=== PATIENT | female | born 1980 | race Caucasian/White ===

== ENCOUNTER → 2017-10-01 14:00 | Outpatient (CLI) | payer OTHER, SELFPAY ==
--- NOTE | 2017-10-01 14:03 | BI_ITS ---
MAMMOGRAPHY - BILATERAL SCREENING REASON FOR EXAM: Female, 37 years old. Routine annual screening examination. PERTINENT HISTORY: Mother with breast cancer. Grandmother with breast cancer. TECHNIQUE: Digital bilateral breast eros (3D mammographic acquisition) in the CC and MLO projections. 2-D mediolateral oblique (MLO) and craniocaudad (CC) views of both breasts were obtained. CAD: Full Field Digital Mammography with Computer Added Detection was performed. COMPARISON: Comparison is made with prior outside examination dated September 02, 2013. FINDINGS: Breast Composition: The breasts are heterogeneously dense, which may obscure small masses. There are no dominant masses or suspicious calcifications. No other significant abnormalities are identified. There has been no significant change since the prior study. BI/SCREENING MAMM (CAD), BILAT IMPRESSION: Stable bilateral screening mammogram. Yearly follow-up mammogram recommended. (A) ASSESSMENT CATEGORY: BIRADS Category 1: Negative. A letter regarding these results will be sent to the patient by the facility within 30 days. Approximately 10% of breast cancers are not detected by mammography. A normal mammogram should not delay biopsy of a clinically suspicious abnormality. [id number] Electronically Signed: Kan Lawrence MD at 15:41 EDT Tel [phone], Service support ,
== END ==
PROVIDERS: Family Provider Family Medicine; PCP Family Medicine; Visit Provider Obstetrics & Gynecology
DX: Z12.31 Encounter for screening mammogram for malignant neoplasm of breast (principal); Z80.3 Family history of malignant neoplasm of breast
CPT/HCPCS: 77063; 77067

== ENCOUNTER → 2018-01-13 15:52 | Outpatient (CLI) | payer OTHER, SELFPAY | PROVIDERS: Visit Provider Nurse Practitioner Women's Health | DX: N76.0 Acute vaginitis (principal) | CPT/HCPCS: 87070; 87205 ==

== ENCOUNTER → 2018-01-22 14:34 | Outpatient (CLI) | payer OTHER, SELFPAY | PROVIDERS: Visit Provider Dermatology | DX: L72.0 Epidermal cyst (principal) | CPT/HCPCS: 87070; 87186; 87205 ==

== ENCOUNTER → 2018-03-25 14:32 | Outpatient (CLI) | payer OTHER, SELFPAY | PROVIDERS: Referring Provider Nurse Practitioner Women's Health; Visit Provider Nurse Practitioner Women's Health | DX: N89.8 Other specified noninflammatory disorders of vagina (principal) | CPT/HCPCS: 87070; 87205 ==

== ENCOUNTER → 2018-04-13 18:04 | Outpatient (CLI) | payer OTHER, SELFPAY | PROVIDERS: Referring Provider Nurse Practitioner Women's Health; Visit Provider Nurse Practitioner Women's Health | DX: N76.0 Acute vaginitis (principal) | CPT/HCPCS: 87070; 87205 ==

== ENCOUNTER → 2018-08-03 15:58 | Outpatient (CLI) | payer OTHER, SELFPAY ==
[2018-08-03 10:41] VITALS: BMI 30.2
== END ==
PROVIDERS: Referring Provider Nurse Practitioner Women's Health; Visit Provider Nurse Practitioner Women's Health
DX: N89.8 Other specified noninflammatory disorders of vagina (principal)
CPT/HCPCS: 87070; 87205

== ENCOUNTER → 2018-09-02 15:33 | Outpatient (CLI) | payer OTHER, SELFPAY ==
[2018-08-03 10:41] VITALS: BMI 30.2
== END ==
PROVIDERS: Referring Provider Otolaryngology Otolaryngology/Facial Plastic Surgery; Visit Provider Otolaryngology Otolaryngology/Facial Plastic Surgery
DX: J03.90 Acute tonsillitis, unspecified (principal)
CPT/HCPCS: 87070

== ENCOUNTER → 2018-10-26 15:22 | Outpatient (CLI) | payer OTHER, SELFPAY ==
[2018-10-26 14:11] VITALS: BMI 30.2
== END ==
PROVIDERS: Referring Provider Nurse Practitioner Women's Health; Visit Provider Nurse Practitioner Women's Health
DX: N89.8 Other specified noninflammatory disorders of vagina (principal)
CPT/HCPCS: 87070; 87205

== ENCOUNTER → 2018-12-09 15:42 | Outpatient (CLI) | payer OTHER, SELFPAY ==
[2018-10-26 14:11] VITALS: BMI 30.2
== END ==
PROVIDERS: Referring Provider Otolaryngology Otolaryngology/Facial Plastic Surgery; Visit Provider Otolaryngology Otolaryngology/Facial Plastic Surgery
DX: J32.9 Chronic sinusitis, unspecified (principal)
CPT/HCPCS: 87070; 87077; 87106; 87205

== ENCOUNTER → 2019-04-19 15:13 | Outpatient (CLI) | payer OTHER, SELFPAY ==
[2019-04-12 09:39] VITALS: BMI 30.2
== END ==
PROVIDERS: Family Provider Family Medicine; PCP Family Medicine; Referring Provider Otolaryngology Otolaryngology/Facial Plastic Surgery; Visit Provider Otolaryngology Otolaryngology/Facial Plastic Surgery
DX: J32.9 Chronic sinusitis, unspecified (principal)
CPT/HCPCS: 87070; 87205

== ENCOUNTER → 2019-05-12 16:16 | Outpatient (CLI) | payer OTHER, SELFPAY ==
[2019-04-12 09:39] VITALS: BMI 30.2
--- NOTE | 2019-05-12 16:19 | CT_ITS ---
STUDY: CT BRAIN AND SINUSES WITHOUT CONTRAST REASON FOR EXAM: Female, 38 years old. Sinusitis. RADIATION DOSAGE (If Supplied By Facility): CTDIvol = ( 33.45 ) mGy, DLP = ( 445.17 ) mGycm TECHNIQUE: Transaxial CT imaging of the brain was performed without administration of contrast. Individualized dose optimization techniques were used for this CT. COMPARISON: No relevant priors. FINDINGS: CT BRAIN Normal visualized soft tissue structures. Normal visualized calvarium. Note is made that only the middle, anterior and bases of the brain is included in the [id number]. Normal size of the visualized ventricles and extra-axial spaces for the patient's age. Normal white matter tracts of the cerebral hemispheres. Normal visualized basal ganglia and thalami. Normal brainstem. Normal cerebellum. There is no intracranial hemorrhage. There are no findings of an acute ischemic infarction. CT SINUSES Post Surgical Changes: None. Frontal Sinus and Recess: Normal aeration without mucosal inflammatory disease. Ethmoidal Sinuses: Normal aeration without mucosal inflammatory disease. Maxillary Sinuses: Normal aeration without mucosal inflammatory disease. Ostiomeatal Complex: Clear. Sphenoid Sinus: Normal aeration without mucosal inflammatory disease. Sphenoethmoidal Recess: Clear. Nasal Turbinate (Right): Middle Turbinate (Right): Normal. Middle Turbinate (Left): Normal. Inferior Turbinate (Right): Normal. Inferior Turbinate (Left): Normal. Nasal Septum: Midline. Nasal Airway: Clear. Cribiform Plate / Anterior Cranial Fossa: Normal. Orbits: Normal. CT/Sinus/Facial Bone IMPRESSION: Unremarkable enhanced CT scan of the visualized brain and sinuses. Electronically Signed: Priscilla Potter MD at 2:39 EST , Service support ,
== END ==
PROVIDERS: Family Provider Family Medicine; PCP Family Medicine; Referring Provider Otolaryngology Otolaryngology/Facial Plastic Surgery; Visit Provider Otolaryngology Otolaryngology/Facial Plastic Surgery
DX: J32.9 Chronic sinusitis, unspecified (principal)
CPT/HCPCS: 70486

== ENCOUNTER 2019-07-17 23:20 | Emergency (ER) | payer OTHER, SELFPAY ==
[2019-04-12 09:39] VITALS: BMI 30.2
[2019-07-17 23:21] VITALS: BP 126/83; PULSE 68; RESP 14; TEMP 36.7; O2SAT 100; BMI 29.2
--- NOTE | 2019-07-17 23:57 | CT_ITS ---
STUDY: CT ABDOMEN AND PELVIS WITHOUT CONTRAST REASON FOR EXAM: Female, 39 years old. RT SIDED ABDOMEN PAIN AND PAINFUL URINATION -- HX:SKIN CANCER,APPENDECTOMY,C-SECTIONS,HYSTERECTOMY-HAS OVARIES RADIATION DOSAGE (If Supplied By Facility): CTDIvol = ( 8.14 ) mGy, DLP = ( 408.75 ) mGycm TECHNIQUE: Transaxial images were obtained from the dome of the diaphragm to the symphysis pubis without oral contrast, and without intravenous contrast. Sagittal and coronal images were reconstructed. Individualized dose optimization techniques were used for this CT. COMPARISON: None. FINDINGS: There is minimal amount of peritoneal fat which makes distinction of structures difficult. The visualized lung bases are unremarkable. The visualized portions of the heart are within normal limits. Normal liver. Normal gallbladder and extrahepatic biliary system. Normal spleen. Normal pancreas. Normal bilateral adrenal glands. Normal right kidney. Normal left kidney. Normal visualized stomach. Normal small intestine. There is abundant fecal debris within the colon which may indicate mild constipation the appropriate clinical context. There is some redundant colon with extension of the cecum along the anterior-inferior aspect of the pelvis. Distinct appendix is not visualized. Normal abdominal aorta. Normal inferior vena cava. Normal retroperitoneum. Urinary bladder is decompressed otherwise unremarkable. The uterus is not well-visualized with the masslike structure seen within the posterior aspect of the pelvis measuring 4.4 x 5.0 cm in axial dimension by 4.8 cm in craniocaudal dimension. Possible free fluid along the bilateral pelvis and cul-de-sac. Normal abdominal wall. Normal osseous structures. CT/Abdomen/Pelvis without Cont IMPRESSION: Posterior pelvic masslike structure with suboptimal visualization of the uterus and difficult to adequately characterize. Further follow-up with ultrasound of the pelvis recommended. Increased fecal debris which may indicate constipation. Electronically Signed: Priscilla Potter MD at 0:57 EST , Service support ,
[2019-07-18 00:05] LABS: Absolute Lymphocyte Count 0.99 X10^3/uL (0.83-4.51); Absolute Neutrophil Count 8.4 X10^3/uL (2.0-7.7); Basophil# 0.03 X10^3/uL; Basophil% 0.3 % (0-1); Eosinophil# 0.01 X10^3/uL; Eosinophils% 0.1 % (0-5); Hematocrit 38.8 % (37-47); Hemoglobin 12.8 g/dL (12.0-15.0); Lymphocyte # 0.99 X10^3/ul (4.0); Mean Corpuscular Hgb 30.1 pg (27.0-32.0); Mean Corpuscular Volume 91.3 fL (81-99); Mean Platelet Vol. 9.7 fl (6.2-12.0); Monocyte# 0.39 X10^3/uL; Monocyte% 3.9 % (0-10); NRBC Flagged by Analyzer 0 % (0-5); Neutrophil # 8.43 X10^3/uL (2.7-7.7); Neutrophil % 85.3 % (47-70); Platelet Count 200 K/mm3 (150-450); RBC Distribution Width CV 12.1 % (11.6-14.6); RBC Distribution Width SD 40.3 fl (35.1-43.9); Red Blood Count 4.25 M/mm3 (4.2-5.4); White Blood Count 9.9 K/mm3 (4.4-11.0)
[2019-07-18] MEDS: Ondansetron 4 MG/2 ML Vial IV (00:11)
[2019-07-18] MEDS: Ketorolac 30 MG/ML Syringe IV (00:11)
--- NOTE | 2019-07-18 00:17 | ED.VIS.GI ---
History of Present Illness Chief Complaint: Abd Pain Informant: Patient - Abdominal Pain/Flank Pain Onset: Today - Several hours prior to arrival Context: Sudden Onset - While at rest, doing nothing in particular Timing: Continuous, Waxes and wanes Quality: Aching Location: RLQ Current Severity: Severe Maximum Severity: Severe Worsened by: - - Lying on left side, and by urinating Relieved by: Nothing - Nausea/Vomiting/Emesis GI Symptom: Nausea, Vomiting Quality: Nonbilious. Negative for: Blood streaks, Coffee ground, Hematemesis - Diarrhea/Melena/Hematochezia GI Symptom: Negative for: Diarrhea, Melena, Hematochezia Associated Symptoms: Negative for: Dysuria, Frequency, Hematuria, Urgency Narrative: Pain started relatively suddenly. She has never had this before. She has had some pain in her right low back for several months, that is no different with this pain today, and there is no other or new back pain. She denies any fevers recently. 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 Has had hysterectomy. Recommended kidney MRI yearly. Derm appt q1-2 yr. Past Medical History - Allergies and Home Meds Allergies/Adverse Reactions: Allergies No Known Allergies Allergy (Verified 07/17/19 23:20) Primary Care Physician: Care Physician,No Primary [Primary Care Provider] - Surgical History: hysterectomy Lives: Spouse/ Significant Other Smoking Status: Former smoker Review of Systems General: Denies: Chills, Fever, Sweats Eyes: Denies: Visual changes - bilaterally, Diplopia ENT: Denies: Rhinorrhea, Sore throat Cardiovascular: Denies: Chest pain, Palpitations Respiratory: Denies: Dyspnea, Cough, Dyspnea on exertion Gastrointestinal: Reports: Abdominal pain, Nausea, Vomiting. Denies: Diarrhea, Melena, Hematochezia Genitourinary: Denies: Dysuria, Hematuria, Frequency Musculoskeletal: Reports: Back pain. Denies: Neck pain, Extremity Pain Skin: Denies: Rash, Wounds Neurological: Denies: Headache, Weakness, Numbness Physical Exam Vital Signs/Narrative: Vital Signs Temp Pulse Resp BP Pulse Ox 07/17/19 23:21 98.1 F 68 14 126/83 H 100 Inital Vital Signs reviewed: Yes General: Well nourished, Well developed, No Acute Distress Head: Normocephalic, Atraumatic Eyes: Perrl, EOMI ENT: Moist mucous membranes, No rhinorrhea Neck: Supple, Nontender Cardiovascular: Regular rate, Regular rhythm, No murmurs Respiratory: No distress, CTA bilaterally, Chest nontender Abdomen: Soft, Nondistended, Normal bowel sounds, Tender - Mild in right lower quadrant. Negative for: Guarding, Rebound tenderness, Pulsatile mass Back: Nontender, Normal Inspection. Negative for: CVA tenderness Extremities: Nontender, No edema Skin: Normal color, No rash, No Trauma Neurological: Alert, Oriented x3, Cranial nerves II-XII grossly intact, Normal Strength, Normal Sensation Psychological: Normal affect, Normal Mood Diagnostic/Tx/Re-eval Impressions Abdomen/Pelvis CT 07/17/19 23:57 IMPRESSION: Posterior pelvic masslike structure with suboptimal visualization of the uterus and difficult to adequately characterize. Further follow-up with ultrasound of the pelvis recommended. Increased fecal debris which may indicate constipation. Electronically Signed: Priscilla Potter MD at 0:57 EST , Service support , 07/17/19 23:57 Abdomen/Pelvis without Cont [CT] Stat Laboratory Results 07/17/19 07/17/19 07/18/19 23:49 23:49 00:15 WBC 9.9 RBC 4.25 Hgb 12.8 Hct 38.8 MCV 91.3 MCH 30.1 MCHC 33.0 RDW Std Deviation 40.3 RDW Coeff of Kim 12.1 Plt Count 200 MPV 9.7 Immature Gran % (Auto) 0.400 Neut % (Auto) 85.3 H Lymph % (Auto) 10.0 L Rich % (Auto) 3.9 Eos % (Auto) 0.1 Baso % (Auto) 0.3 Absolute Neuts (auto) 8.4 H Absolute Lymphs (auto) 0.99 Nucleated RBC % 0 Sodium 139 Potassium 3.9 Chloride 108 H Carbon Dioxide 24.0 Anion Gap 7 BUN 12 Creatinine 0.72 Estim Creat Clear Calc 87.64 Est GFR (MDRD) Af Amer 117 Est GFR (MDRD) Non-Af 97 BUN/Creatinine Ratio 16.7 Glucose 109 H Calcium 9.1 Urine Color Yellow Urine Clarity Sl. Cloudy Urine pH 6.5 Ur Specific [place] 1.015 Urine Protein Negative Urine Glucose (UA) Normal Urine Ketones 150 H Urine Occult Blood Negative Urine Nitrite Negative Urine Bilirubin Negative Urine Urobilinogen Normal Ur Leukocyte Esterase Negative Urine RBC 0 SEEN Urine WBC 0 SEEN Ur Squamous Epith Cells 0-5 SEEN Urine Bacteria RARE Urine Mucus 0 SEEN - Medical Decision Making Patient is feeling better after treatment. CT shows no stones and urine is normal, her other labs are normal as well but there is a masslike structure in her posterior pelvis on the CT. It is unknown if this is related to the pain she was having which is new. There is no sign of urinary plumbing obstruction or hydronephrosis. There is no significant leukocytosis or leftward shift to suggest that this is an infection. It is appreciated that we did not enhance this area with contrast, so visualization is suboptimal and that is likely why ultrasound of the pelvis is recommended. That is not available at this time, so since the patient is doing well and has no other reason medically to be admitted I think outpatient ultrasound close outpatient follow-up with her gyroscopic engineering technician is reasonable and she is agreeable to that. Given an Ultram prior to discharge and a prescription for that to use as needed. I am setting her up for an outpatient ultrasound. ED Disposition - Plan for ED Patient: Disposition: Home or Assisted Living Diagnosis: Pelvic mass, Right sided abdominal pain Instructions: PELVIC PAIN, Unknown Cause Prescriptions: traMADol [Ultram] 50 mg PO Q4H PRN PRN 3 Days #16 tab PRN Reason: Pain Prescription Printed Referrals: Maria M Perez MD [STAFF PHYSICIAN] - 3-5 Days (make an appt for after the ultrasound) Additional Instructions: Take your prescription to the ultrasound. Call the number given for scheduling.
[2019-07-18 00:21] LABS: Color, Urine Yellow (Yellow); Glucose, Dipstick Normal (Normal); Leukocyte Esterase-Dipstick Negative /ul (Negative); Mucous, Urine 0 SEEN /hpf (<or=2+); Nitrite-Dipstick Negative (Negative); Occult Blood-Urine Negative /ul (Negative); Protein-Dipstick Negative (Negative); Red Blood Cells-Urine 0 SEEN /hpf (0-5); Specific Gravity, Urine 1.015 (1.002-1.030); Urine Bilirubin Dipstick Negative (Negative); Urine Clarity Sl. Cloudy (Clear); Urine Urobilinogen Normal (Normal); Urine pH 6.5 (5.0 - 8.0); White Blood Cells 0 SEEN /hpf (0-5)
[2019-07-18 00:21] LABS: Anion Gap 7 (5-15); BUN 12 mg/dL (7-18); BUN/Creat Ratio 16.7 RATIO (10-20); Calcium,Total 9.1 mg/dL (8.5-10.1); Chloride 108 mmol/L (98-107); Creatinine, Serum 0.72 mg/dL (0.55-1.02); EST Glomerular Filtration Rate 97 mL/min (>60); Est Glom Filt Rate - Afr Amer 117 mL/min (>60); Estimated Creatinine Clearance 87.64 ml/min; Glucose 109 mg/dL (74-106); Potassium 3.9 mmol/L (3.5-5.1); Sodium Level 139 mmol/L (136-145)
[2019-07-18 00:28] LABS: Bacteria RARE /hpf (None Seen); Ketone-Dipstick 150 mg/dl (Negative); Squamous Epithelial Cells - UA 0-5 SEEN /hpf (5-10)
[2019-07-18] MEDS: traMADol 50 MG Tablet PO (02:24)
[2019-07-18 02:28] VITALS: PULSE 71; RESP 16; O2SAT 99
== END 2019-07-18 02:28 | disposition home or self-care (01) ==
PROVIDERS: Emergency Provider Emergency Medicine
DX: R19.00 Intra-abdominal and pelvic swelling, mass and lump, unspecified site (principal); R10.31 Right lower quadrant pain; M54.5 Low back pain; Z87.891 Personal history of nicotine dependence; Z90.710 Acquired absence of both cervix and uterus
CPT/HCPCS: 74176; 80048; 81001; 85025; 96374; 96375; 99284; A4216; J2405

== ENCOUNTER 2019-07-19 09:08 | Day surgery (SDC) | payer OTHER, SELFPAY ==
[2019-07-19] VITALS (11 sets, daily range): BP systolic 98–142; BP diastolic 60–77; PULSE 53–83; RESP 12–18; TEMP 36.1–36.7; O2SAT 93–100; BMI 29.2
--- NOTE | 2019-07-19 | OV_PTH ---
PATIENT: KYRA JO LOC: [facility] [place] U#:[id number] AGE/SX: 39/F ROOM: RE07/19/[address]: Dr. Maria M Perez MD : 1980 BED: DIS: 07/19/2019 SPEC #: [id number] RECD: 07/19/19 16:07 STATUS: CODY MIKI #: [id number] ERIN: 07/19/19 00:[address]: Maria M Perez DEPT: SURGICAL PATHOLOGY RECD BY: Bill Francis ENTERED: 07/20/19 08:51 SP TYPE: OVARY OTHR DR: Catina Primary Care Phys Tissues: Right ovary Procedures: Surgery Specimen Level V HEADER OPERATION: Laparoscopic treatment of right ovarian torsion, right oophorectomy PRE-OP DIAGNOSIS: Ovarian torsion TISSUE SUBMITTED: Right ovary MICROSCOPIC DIAGNOSIS Right ovary, oophorectomy: Thecoma/fibroma of ovary Hemorrhagic infarction. AM:ghanshyam 07/21/19 COMMENT Case has been reviewed in consultation with Dr. Garza who concurs with the above diagnosis. IDC:SJ MICROSCOPIC DESCRIPTION Slides are reviewed. GROSS DESCRIPTION Received in fixative is one container labeled with the patient's name and designated right ovary. The specimen consists of a portion of ovary in two pieces measuring in aggregate 10 x 6 x 4 cm. Multiple nodules are also noted measuring 9 x 7 x 4 cm. The entire specimen weighs 138 gm. A mishra, indurated nodule is noted at one edge of the specimen measuring 1.7 x 1.5 x 1 cm. Sections of the rest of ovarian tissue reveal hemorrhagic cut surfaces. Sections also reveal a mishra-white nodule measuring 1 cm in greatest dimension. Regulated Program Manager sections are submitted in four cassettes as follows: 1 - larger solid nodule, 2 - mishra-white nodule, 3 & 4 - lifeline representatives sections of ovarian tissue. / TRACEY:ghanshyam 07/20/19 TC:1 [facility]: [id number]
--- NOTE | 2019-07-19 09:17 | US_ITS ---
STUDY: ULTRASOUND OF THE FEMALE PELVIS - COMPLETE REASON FOR EXAM: Female, 39 years old. RLQ PAIN SINCE 07/17/19 LMP: The patient is status post hysterectomy. TECHNIQUE: Transvaginal TECHNICAL QUALITY: Adequate. COMPARISON: None. FINDINGS: The patient is status post hysterectomy. The right ovary is visualized. The right ovary is enlarged and measures 10.1 cm x 7.3 cm x 6.8 cm. 2 discrete complex masses are seen within the ovary. The larger measures 4.6 cm x 4.7 cm by 4.5 cm. The smaller measures 3.1 cm by 3.7 cm x 3.3 cm. There is decreased arterial and normal venous vascularity. Right ovarian torsion should be ruled out. The left ovary is visualized. The left ovary measures 3.5 cm x 2 cm x 2.5 cm. There is no left ovarian cyst or ovarian mass. There is no visualized left adnexal mass or complex lesion. There is normal arterial and normal venous vascularity. There is no fluid in the cul-de-sac. US/Transvaginal Non- IMPRESSION: 2 complex masses in the right ovary. There is evidence of decreased blood flow to the right ovary. Torsion of the right orbit should be ruled out. The referring physician was notified of the sonographic findings. Electronically Signed: Kan Lawrence, at 10:35 EST , Service support ,
--- NOTE | 2019-07-19 09:19 | ED.VIS.GEN ---
History of Present Illness Chief Complaint: Abd Pain Informant: Patient, Significant Other Onset: Days - Onset July 17 Context: Sudden Onset Timing: Continuous Quality: Pain Location: Right lower quadrant Current Severity: Moderate Maximum Severity: Severe Worsened by: Movement, walking Relieved by: Nothing Associated Symptoms: Nausea and anorexia Narrative: Patient is a 39-year-old woman seen on Friday and scheduled for outpatient ultrasound. She presents because of worsening pain. She reports nausea and has no appetite. Since Friday she has had 6 crackers. She was prescribed tramadol. She states the tramadol did not diminish the symptoms. She had a oxycodone from prior surgery, 1 year ago, that she took. She still complained of significant pain. She has a pressure sensation when she urinates. She had a CT of the abdomen on Friday which revealed a 4 cm pelvic mass. She is status post x2, hysterectomy and appendectomy. She states her right and left ovary were not removed. The hysterectomy was performed by Dr. 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 Has had hysterectomy. Recommended kidney MRI yearly. Derm appt q1-2 yr. Past Medical History - Allergies and Home Meds Allergies/Adverse Reactions: Allergies No Known Allergies Allergy (Verified 07/19/19 09:08) Primary Care Physician: Care Physician,No Primary [Primary Care Provider] - Prior records reviewed: Yes Surgical History: appendectomy, hysterectomy, - - x2 Lives: Spouse/ Significant Other, With Family Smoking Status: Former smoker Alcohol: Rare Drugs: None Review of Systems General: Reports: Fever, Malaise, Subjective. Denies: Chills, Sweats Eyes: Denies: Visual changes - bilaterally, Blurred Vision - bilaterally ENT: Denies: Rhinorrhea, Sore throat Cardiovascular: Denies: Chest pain, Palpitations Respiratory: Denies: Dyspnea, Cough, Dyspnea on exertion Gastrointestinal: Reports: Abdominal pain, Nausea, - - She also complains of anorexia.. Denies: Vomiting, Diarrhea, Constipation, Melena, Hematochezia, - Genitourinary: Reports: - - Ports pressure with urination. Denies: Dysuria, Hematuria, Frequency Musculoskeletal: Denies: Myalgias, Arthralgias, Neck pain, Back pain, Swelling, Extremity Pain, -, - Skin: Denies: Rash, Wounds Neurological: Denies: Headache, Weakness, Numbness Hematologic: Denies: Easy bruising, Easy bleeding Physical Exam Vital Signs/Narrative: Vital Signs Temp Pulse Resp BP Pulse Ox 07/19/19 09:09 97.0 F L 83 16 142/77 H 100 Inital Vital Signs reviewed: Yes General: Well nourished, Well developed, Acute Distress, - - Peers uncomfortable and pale. Head: Normocephalic, Atraumatic Eyes: Perrl, EOMI, Pale conjunctiva - Possible pallor on the conjunctivo-. Negative for: Scleral icterus ENT: No rhinorrhea. Negative for: Nasal congestion Neck: Supple, Nontender, No lymphadenopathy, No JVD Cardiovascular: Regular rate, Regular rhythm, No murmurs, Normal S1, Normal S2 Respiratory: No distress, CTA bilaterally, Chest nontender Abdomen: Soft, Nondistended, No masses, Tender, Guarding, Rebound tenderness, Hypoactive bowel sounds. Negative for: Mass, Pulsatile mass, Ventral hernia, Inguinal hernia, Umbilical hernia Back: Nontender, Normal Inspection Extremities: Nontender, No edema Skin: No rash, Pallor Neurological: Alert, Oriented x3, Cranial nerves II-XII grossly intact, Normal Strength, Normal Sensation Psychological: Normal affect, Normal Mood Diagnostic/Tx/Re-eval 07/19/19 09:17 Transvaginal Non- [US] Stat Laboratory Results 07/19/19 09:30 WBC 7.3 RBC 3.76 L Hgb 11.4 L Hct 34.6 L MCV 92.0 MCH 30.3 MCHC 32.9 RDW Std Deviation 41.0 RDW Coeff of Kim 12.2 Plt Count 161 MPV 9.8 Immature Gran % (Auto) 0.500 Neut % (Auto) 78.5 H Lymph % (Auto) 10.7 L [place] % (Auto) 10.1 H Eos % (Auto) 0.1 Baso % (Auto) 0.1 Absolute Neuts (auto) 5.7 Absolute Lymphs (auto) 0.78 L Nucleated RBC % 0 - Medical Decision Making With history of 4 cm pelvic mass abrupt onset of pain need to evaluate for ovarian torsion. Patient was made n.p.o. CBC was obtained. Abdominal exam is remarkable for peritonitis. Since she had a CAT scan on Friday pelvic exam was not performed at this time. Will call her radio communication coordinator because of concern for torsion. Keep a call from the kennel technician. She states Dr. Montes looked at the images. The right ovary is 10 cm in size. There is a 4 cm mass on the ovary and there is no flow. In light of this Dr. Maria M Perez was contacted. He was made aware patient's history, physical findings and CBC results. She requested patient have a type and screen. She will call OR. ED Disposition - Plan for ED Patient: Disposition: Acute Care [facility] Diagnosis: Torsion of right ovary Referrals: Care Physician,No Primary [Primary Care Provider] -
[2019-07-19] MEDS: Ketorolac 15 MG/ML Vial IV (09:33)
[2019-07-19] MEDS: Morphine 4 MG/ML Syringe IV (09:34)
[2019-07-19] MEDS: 0.9% Normal Saline 1,000 ML 1000 ML IV (09:37)
[2019-07-19] MEDS: Ondansetron 4 MG/2 ML Vial IV ×2 (09:37→10:51)
[2019-07-19 09:53] LABS: Absolute Lymphocyte Count 0.78 X10^3/uL (0.83-4.51); Absolute Neutrophil Count 5.7 X10^3/uL (2.0-7.7); Basophil# 0.01 X10^3/uL; Basophil% 0.1 % (0-1); Eosinophil# 0.01 X10^3/uL; Eosinophils% 0.1 % (0-5); Hematocrit 34.6 % (37-47); Hemoglobin 11.4 g/dL (12.0-15.0); Lymphocyte # 0.78 X10^3/ul (4.0); Lymphocyte % 10.7 % (19-41); Mean Corp Hgb Conc 32.9 g/dL (32-36); Mean Corpuscular Hgb 30.3 pg (27.0-32.0); Mean Platelet Vol. 9.8 fl (6.2-12.0); Monocyte# 0.74 X10^3/uL; Monocyte% 10.1 % (0-10); NRBC Flagged by Analyzer 0 % (0-5); Neutrophil # 5.73 X10^3/uL (2.7-7.7); Neutrophil % 78.5 % (47-70); Platelet Count 161 K/mm3 (150-450); RBC Distribution Width CV 12.2 % (11.6-14.6); Red Blood Count 3.76 M/mm3 (4.2-5.4); White Blood Count 7.3 K/mm3 (4.4-11.0)
[2019-07-19] MEDS: HYDROmorphone 1 MG/ML Syringe IV (10:51)
--- NOTE | 2019-07-19 11:44 | HP.PCM_ITS ---
Problem List (1) Torsion of right ovary Status: Acute History of Present Illness Date of Admission: 07/19/19 The patient is a 39 year old F presents with acute pelvic pain on the right side since friday. ovarian cyst 4 cm noted on friday and now it is 10 cm with no blood flow. she denies any history of previous pain, but has a history of a hysterectomy. denies any vaginal bleeding. Past Medical History Past Medical History (Chronic Problems): Chronic Problems (Last Reviewed 04/12/19 @ 09:39 by Winsome Barba) Hereditary leiomyomatosis and renal cell cancer (HLRCC) (Chronic) Positive for gene. Has had hysterectomy. Recommended kidney MRI yearly. Derm appt q1-2 yr. 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 Allergies No Known Allergies Allergy (Verified 07/19/19 09:08) Home Medications: Ambulatory Orders Medication Instructions Recorded traMADol [Ultram] 50 mg PO Q4H PRN PRN 3 Days #16 tab 07/18/19 Surgical History: Surgical History (Last Reviewed 04/12/19 @ 09:39 by Winsome Barba) H/O: hysterectomy Z98.890, Z90.710 History of delivery Z98.891 Hx of appendectomy Z90.49 meniscus repair removal of clip Surgical History: appendectomy, hysterectomy, - - x2 Lives: Spouse/ Significant Other, With Family Smoking Status: Former smoker Alcohol: Rare Drugs: None Review of Systems Constitutional: Denies: Fever, Malaise Eyes: Denies: Blurred vision, Vision Change HEENT: Denies: Head Aches, Visual Changes Cardiovascular: Denies: Chest Pain, Palpitations Respiratory: Denies: Cough, Shortness of Breath, Wheezing Gastrointestinal: Reports: Abdominal Pain, Nausea. Denies: Diarrhea, Vomiting Genitourinary: Denies: Dysuria, Hematuria Musculoskeletal: Denies: Joint Pain, Muscle pain Skin: Denies: Lesions, Rash Neurological: Denies: Blurred vision, Focal weakness, Headaches Psychiatric: Denies: Anxiety, Depression Endocrine: Denies: Heat/ Cold Intolerance Hematologic/ Lymphatic: Denies: Easy Bruising, Easy Bleeding VTE Information - Inpt Only VTE Present on Admission: No Patient Problems: Active and Suspected Problems (Last Reviewed 04/12/19 @ 09:39 by Winsome Barba) Torsion of right ovary (Acute) - Physical Exam Vitals/I&O's: Vital Signs Temp Pulse Resp BP Pulse Ox 97.0 F L 56 L 12 109/71 99 07/19/19 09:09 07/19/19 10:40 07/19/19 10:40 07/19/19 10:40 07/19/19 10:40 Oxygen Delivery Method Room Air Weight: 165 lb Body Mass Index (BMI) 29.2 General: Alert, Oriented x3, Cooperative HEENT: Atraumatic, Normocephalic Neck: Supple Lungs: Clear to auscultation, Normal air movement Cardiovascular: Regular rate, No murmurs Abdomen: Bowel Sounds Present, Soft, Rebound Tenderness Extremities: No edema, Capillary Refill Less than 3 Seconds Skin: No rashes, No breakdown Musculoskeletal: No Tenderness to Palpation of Joints or Extremities Neurological: Neuro grossly intact Psych/Mental Status: Normal Affect, Appropriate Laboratory Results 07/19/19 09:30: WBC 7.3, RBC 3.76 L, Hgb 11.4 L, Hct 34.6 L, MCV 92.0, MCH 30.3, MCHC 32.9, RDW Std Deviation 41.0, RDW Coeff of Kim 12.2, Plt Count 161, MPV 9.8, Immature Gran % (Auto) 0.500, Neut % (Auto) 78.5 H, Lymph % (Auto) 10.7 L, [place] % (Auto) 10.1 H, Eos % (Auto) 0.1, Baso % (Auto) 0.1, Absolute Neuts (auto) 5.7, Absolute Lymphs (auto) 0.78 L, Nucleated RBC % 0 07/19/19 09:30: Blood Type O POSITIVE, Antibody Screen NEGATIVE Assessment/Plan All Active Problems (Last Reviewed 04/12/19 @ 09:39 by Winsome Barba) Torsion of right ovary (Acute) Abnormal uterine bleeding (Resolved) Uterine fibroid (Resolved) 39 yo with ovarian torsion recommend larposcopic detorsing of ovary and possible oophorectomy. After discussing the patient's diagnosis and treatment plan options, patient wishes to proceed with surgical management. I have discussed with the patient the risks, benefits, and alternatives of the procedure which include but are not limited to risks of anesthesia, bleeding, infection, possible damage to bowel, bladder, or surrounding vasculature which could lead to additional surgery to evaluate any complications. Patient agrees to procedure and wishes to proceed.
--- NOTE | 2019-07-19 11:48 | OP.PCM_ITS ---
Problem List (1) Torsion of right ovary Status: Acute Report of Operation Date of Procedure: 07/19/19 Pre-Operative Diagnosis: ovarian torsion Post-Operative Diagnosis: same Surgery/Procedure Performed:: laparoscopic oophorecotmy Description of Surgical Findings:: right torsed ovary veterinarian assistant: Abdifatah Bhakta Type of Anesthesia:: General Special Medications: none Specimen's removed: ovary Drains: none Estimated Blood Loss (mL): 300- preop Fluids Replaced: crystalloid Description of Procedure: Patient was taken in the operating room and was placed under general anesthesia was prepped and draped in normal sterile fashion in the dorsal lithotomy position. Bladder was drained of clear urine and SCDs were on preoperatively. Attention was then paid to the abdominal portion of the procedure and the umbilicus was elevated with towel clamps and injected with Marcaine and after a 5 mm incision was made and the Veress needle was entered into the abdomen confirmed to be intra-abdominal with a low opening pressure of less than 5 mmHg. Abdomen was insufflated with CO2 gas and a 12 mm optical trocar was placed under direct visualization. A right and left lower quadrant 5 mm and 12 mm ports were placed under direct visualization. The right ovary was visualized and noted to be torsed and necrotic and therefore the infundibulopelvic ligament was transected across using the LigaSure device and the ovary was removed without complication. Excellent hemostasis was noted. umbilical port site closed with brenda bhatti to reapproximate the fascia. Liver and upper abdomen were visualized notably within normal limits and no other gross abnormalities were seen in the abdomen. All instruments removed from the abdomen after gas was desufflated. Port sites were closed with 3-0 Monocryl Steri's and op sites were applied. All instruments removed from the vagina and patient was awoken and taken recovery in stable condition. Grafts/Implants Used: none - Complications none - Admit VTE Documentation VTE Present on Admission: No VTE Mechan Device Prophylaxis: SCD's Multi Select Codes - Urinary/Genital Urinary/Genital CPT Codes: 00845 Laproscopic BS/O
[2019-07-19] MEDS: Bupivacaine 0.25% 30 ML Vial (12:05)
[2019-07-19] MEDS: Lactated Ringers 1,000 ML 100 ML IV ×2 (12:15→16:22)
--- NOTE | 2019-07-19 12:27 | PCM.DC ---
- Discharge Diagnoses Current Active Problems: Current Active and Chronic Problems (Last Reviewed 04/12/19 @ 09:39 by Winsome Barba) Torsion of right ovary (Acute) You will use the following diet at home:: No restrictions Your food should be the consistency of: Regular Discharge Activity: May not drive while taking narcotic pain medications., May Shower Return to work on:: 07/26/19 May resume sexual activity in: 10-14 days Call your doctor if you observe: Fever of 101 or Higher, Coldness, Increased Pain, Numbness or Tingling, Shortness of breath, Dizziness, Uncontrolled pain Allergies/Adverse Reactions: Allergies No Known Allergies Allergy (Verified 07/19/19 09:08) Medications to take at Discharge traMADol [Ultram] 50 mg PO Q4H PRN PRN 3 Days #16 tab 07/18/19 Naproxen [Naprosyn] 250 - 500 mg PO Q8H PRN PRN #30 tab 07/19/19 Oxycodone HCl/Acetaminophen [Percocet 5-325] 1 - 2 tablet PO Q6H PRN PRN 7 Days #15 tablet 07/19/19 The following prescriptions were given: Naproxen [Naprosyn] 250 - 500 mg PO Q8H PRN PRN #30 tab PRN Reason: MILD PAIN Transmission Status: Pending to [facility]/pharmacy #[id number] Oxycodone HCl/Acetaminophen [Percocet 5-325] 1 - 2 tablet PO Q6H PRN PRN 7 Days #15 tablet PRN Reason: Pain Transmission Status: Received by [facility]pharmacy #[id number] Primary Care Physician: Care Physician,No Primary [Primary Care Provider] - Test Results: Test results from this visit will be discussed in further detail at your follow-up appointment, if applicable. Please Follow Up With: Maria M Perez MD - 2 weeks
[2019-07-19] MEDS: HYDROcodone Bitartrate/Apap 5/325 Tablet PO (14:58)
== END 2019-07-19 16:32 | disposition home or self-care (01) ==
LOC: ED 10:30 → SDC 10:36
PROVIDERS: Emergency Provider Emergency Medicine; Visit Provider Obstetrics & Gynecology
PROC: (CPT 58661; principal; 2019-07-19 10:15)
DX: N83.511 Torsion of right ovary and ovarian pedicle (principal); D27.0 Benign neoplasm of right ovary; N83.8 Other noninflammatory disorders of ovary, fallopian tube and broad ligament; Z87.891 Personal history of nicotine dependence; Z79.891 Long term (current) use of opiate analgesic
CPT/HCPCS: 00840; 58661; 76830; 85025; 86850; 86900; 86901; 88305; 88307; 93976; 99285; J7030; A4216; J2405

== ENCOUNTER → 2020-05-03 13:57 | Outpatient (CLI) | payer OTHER, SELFPAY ==
[2019-08-02 14:41] VITALS: BMI 29.2
--- NOTE | 2020-05-03 13:59 | BI_ITS ---
MAMMOGRAPHY - BILATERAL SCREENING REASON FOR EXAM: Female, 39 years old. Routine annual screening examination. PERTINENT HISTORY: Mother with breast cancer. Grandmother with breast cancer. TECHNIQUE: Digital bilateral breast doris (3D mammographic acquisition) in the CC and MLO projections. 2-D mediolateral oblique (MLO) and craniocaudad (CC) views of both breasts were obtained. CAD: Full Field Digital Mammography with Computer Added Detection was performed. COMPARISON: Comparison is made with prior study dated 10/01/2017. FINDINGS: Breast Composition: The breasts are heterogeneously dense, which may obscure small masses. There is a new 1.1 cm x 1.2 cm nodular density in the deep inferior medial portion of the left breast. Correlation with ultrasound is recommended for further evaluation. No other significant abnormalities are identified. BI/SCREEN MAMM (CAD) W/DORIS BILAT IMPRESSION: There is a new 1.1 cm by 1.2 cm nodular density in the deep inferior medial portion of the left breast. Correlation with ultrasound is recommended. ASSESSMENT CATEGORY: BIRADS Category 0: Incomplete. Need additional imaging evaluation. A letter regarding these results will be sent to the patient by the facility within 30 days. Approximately 10% of breast cancers are not detected by mammography. A normal mammogram should not delay biopsy of a clinically suspicious abnormality. [id number] Electronically Signed: Kan Lawrence, at 15:06 EST , Service support ,
== END ==
PROVIDERS: Referring Provider Obstetrics & Gynecology; Visit Provider Obstetrics & Gynecology
DX: Z12.31 Encounter for screening mammogram for malignant neoplasm of breast (principal)
CPT/HCPCS: 77063; 77067

== ENCOUNTER → 2020-05-08 08:35 | Outpatient (CLI) | payer OTHER, SELFPAY ==
[2019-08-02 14:41] VITALS: BMI 29.2
[2020-05-08 08:03] VITALS: BMI 30.7
--- NOTE | 2020-05-08 08:36 | US_ITS ---
STUDY: ULTRASOUND BREAST - LEFT REASON FOR EXAM: Female, 39 years old. Abnormal screening mammogram. TECHNIQUE: Axial and longitudinal images of the LEFT breast were performed with a high resolution ultrasound transducer. # OF IMAGES: 24 COMPARISON: Comparison is made with prior mammogram dated 05/03/2020. FINDINGS: LEFT Breast: The mammographic abnormality corresponds to a 1.2 cm x 1.2 cm x 0.5 cm hypoechoic solid nodule at the 7 o''clock position of the left breast at 8 cm from the nipple. Biopsy is recommended. US/Breast Limited Unilateral IMPRESSION: The mammographic abnormality corresponds to a 1.2 cm x 1.2 cm x 0.5 cm hypoechoic solid nodule at the 7 o''clock position of the breast at 8 cm from the nipple. Biopsy is recommended. ASSESSMENT CATEGORY: BIRADS Category 4: Suspicious - Biopsy Should Be Considered. A letter regarding these results will be sent to the patient by the facility within 30 days. Electronically Signed: Kan Lawrence, at 11:20 EST , Service support ,
== END ==
PROVIDERS: Referring Provider Obstetrics & Gynecology; Visit Provider Obstetrics & Gynecology
DX: N63.20 Unspecified lump in the left breast, unspecified quadrant (principal)
CPT/HCPCS: 76642

== ENCOUNTER → 2020-05-10 11:16 | Outpatient (CLI) | payer OTHER, SELFPAY ==
--- NOTE | 2020-05-10 | BRBX_PTH ---
PATIENT: KYRA JO LOC: [facility] U#:[id number] AGE/SX: 44/F ROOM: RE05/10/[address]: Dr. Hayden Tesfaye MD : 1980 BED: DIS: SPEC #: [id number] RECD: 05/10/20 12:34 STATUS: CODY MIKI #: [id number] ERIN: 05/10/20 00:[address]: Hayden Tesfaye DEPT: SURGICAL PATHOLOGY RECD BY: Bill Francis ENTERED: 05/10/20 12:34 SP TYPE: BREAST BX OTHR DR: No Primary Care Phys Tissues: Left breast, NOS Procedures: Surgery Specimen Level IV HEADER OPERATION: Left breast biopsy PRE-OP DIAGNOSIS: Left breast mass TISSUE SUBMITTED: Left breast FIXATION TIME: 11.5 hours MICROSCOPIC DIAGNOSIS Left breast mass, core biopsy: Fibroadenoma/benign phyllodes tumor. Negative for atypia or malignancy. SJ:ghanshyam 05/11/20 MICROSCOPIC DESCRIPTION Slides are reviewed. GROSS DESCRIPTION Received in fixative is one container labeled with the patient name and designated left breast. The specimen consists of multiple elongated fragments of mishra-yellow fibroadipose tissue that in aggregate measure 2 x 0.3 x 0.1 cm. The entire specimen is submitted in one cassette. / SJ:ghanshyam 05/10/20 TC:1 CPT: 48500
[2020-05-10 08:44] VITALS: BMI 29.2
== END ==
PROVIDERS: Visit Provider Surgery
DX: N63.20 Unspecified lump in the left breast, unspecified quadrant (principal)
CPT/HCPCS: 88305

== ENCOUNTER 2020-05-18 07:56 | Day surgery (SDC) | payer OTHER, SELFPAY ==
[2020-05-10 08:44] VITALS: BMI 29.2
[2020-05-18] VITALS (7 sets, daily range): BP systolic 94–106; BP diastolic 64–71; PULSE 46–62; RESP 14–16; TEMP 36.2–36.4; O2SAT 95–100; BMI 30.3
[2020-05-18] MEDS: Lactated Ringers 1,000 ML 100 ML IV (08:22)
--- NOTE | 2020-05-18 08:35 | HP.PCM_ITS ---
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 This visit was conducted during - pandemic. KYRA JO, is a 39 F who presents to the office today for left breast mass. The patient had left breast mass biopsy last week in the office and this came back as fibroadenoma containing phyllodes tumor. ROS Const Constitutional: No anorexia, body ache or chills Cardio Cardiology: No chest pain at rest, chest pain with exertion or shortness of breath Gastro GI: No abdominal pain, belching, change in bowel habits or Vomiting blood/hematemesis Genitourinary-Female: No difficulty urinating Exam Details: Details:: Exam was limited due to phone visit with no video. Quality Reporting Tobacco Screening ([facility]) Smoking Status: Former smoker Assessment & Plan Problems 1. 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 I recommended excision of this mass. I discussed this with her over the phone. I discussed stereotactic wire localization as well as excisional biopsy of this mass. I discussed the risks including not limited to bleeding, infection, hematoma formation or seroma formation. The patient understands the risks and is well to proceed. We discussed the current risks associated with COVID-19. While it is understood that there is a community spread of COVID-19, the risk of sammy COVID-19 while at [facility] ([facility]) is very low; however, the risk cannot be completely mitigated because of the community spread of the disease. We discussed in detail the risk of exposure to and/or potential harm posed by the COVID-19 virus with having a surgery/procedure at this time versus the risk of delaying the surgery/procedure. It is not possible to know either the risk of delaying the surgery or procedure or chance of getting an infection with perfect accuracy, but a joint decision was made to proceed at this time with the scheduled surgery/procedure as indicated on the consent form. Patient was notified that we will need to comply with any screening or testing [facility] wishes to perform or that surgery may be delayed for any positive results. Hayden Tesfaye MD Pager: [facility] [address] [place] [address], [address] [place] [address] Office: I have re-examined the patient. There are no clinical changes since date of exam.
--- NOTE | 2020-05-18 09:00 | BI_ITS ---
SURGICAL BREAST SPECIMEN RADIOGRAPH CLINICAL: Document presence of tissue clip marker in biopsy specimen. FINDINGS: Specimen shows presence of tissue clip marker. Electronically Signed: Kan Lawrence, at 10:34 EST , Service support , BI/Breast Biopsy Specimen
[2020-05-18] MEDS: Cefazolin 2 GM in 0.9% Normal Saline 100 ML IV (09:31)
--- NOTE | 2020-05-18 09:48 | BREAST_PTH ---
PATIENT: KYRA JO LOC: [facility] U#:[id number] AGE/SX: 39/F ROOM: RE05/18/[address]: Dr. Hayden Tesfaye MD : 1980 BED: DIS: 05/18/2020 SPEC #: [id number] RECD: 05/18/20 09:54 STATUS: CODY RECalos #: [id number] ERIN: 05/18/20 09:[address]: Hayden Tesfaye DEPT: SURGICAL PATHOLOGY RECD BY: Danielle Penn ENTERED: 05/18/20 10:08 SP TYPE: BREAST OTHR DR: No Primary Care Phys Tissues: A - Breast, NOS B - Breast, NOS Procedures: Surgery Specimen Level V HEADER OPERATION: Stereotactic wire localization and excision of breast mass PRE-OP DIAGNOSIS: Phyllodes tumor of breast TISSUE SUBMITTED: A - Left breast mass, short stitch - superior, long stitch - lateral, B - Additional left breast tissue, short stitch - superior, long stitch - lateral MICROSCOPIC DIAGNOSIS A. Left breast, lumpectomy: Minimal fibrocystic change. No evidence of malignancy. B. Additional left breast, tissue, lumpectomy: Benign phyllodes/fibroadenoma, completely excised. Margins of excision with no pathologic change. See comment. AM:ghanshyam 05/22/20 COMMENT B. The lesion shows features of both benign phyllodes tumor and fibroadenoma and measures 9 mm in greatest dimension. MICROSCOPIC DESCRIPTION Slides are reviewed. GROSS DESCRIPTION A - Received fresh labeled with the patient's name is a specimen designated left breast mass. The specimen consists of an irregular fragment of mishra-yellow fibrofatty tissue measuring 4.5 x 3 x 2 cm and weighing 10.7 gm. The specimen is differentially inked as follows: anterior - yellow, posterior - black, superior - blue, inferior - green, medial - red and lateral - orange. Serial sections reveal homogenous yellow cut surfaces without mass lesions. The specimen is serially sectioned and totally submitted in six cassettes. B - Received fresh labeled with the patient's name is a specimen designated additional left breast tissue. The specimen consists of an irregular fragment of mishra-yellow fibrofatty tissue measuring 4.6 x 3.5 x 1.5 cm and weighing 11.7 gm. The specimen is differentially inked as follows: anterior - yellow, posterior - black, superior - blue, inferior - green, medial - red and lateral - orange. Serial sections reveal a mishra, rubbery nodule measuring 1 x 0.5 cm and located 0.5 cm from the closest (medial) margin of excision. The specimen is sectioned and totally submitted in six cassettes. / AM:ghanshyam 05/19/20 TC:1 CPT: 71946 x2
[2020-05-18] MEDS: Bupivacaine Mpf 0.5% 30 ML VIAL (09:59)
--- NOTE | 2020-05-18 10:14 | OP.PCM_ITS ---
Problem List (1) Phyllodes tumor of breast Status: Acute Report of Operation Date of Procedure: 05/18/20 Pre-Operative Diagnosis: Phyllodes tumor of the left breast Post-Operative Diagnosis: Same Surgery/Procedure Performed:: 1. Stereotactic guided wire localization of left breast mass. 2. Excisional biopsy of left breast mass Specimen's removed: Left breast excisional biopsy Description of Procedure: Patient was brought to the stereotactic room and placed in the stereotactic table. Mammographic images were used to localize the clip. Stereotactic images were obtained and the clip was localized. The skin was prepped and then anesthetized. The needle was placed into the breast and the wire was kept in the breast as the needle was removed. Mammographic views were taken after the wire placement to confirm placement and then the patient was taken to the operating room Once in the operating room the MAC anesthesia was induced and patient's left br east was prepped and draped in usual sterile fashion. A curvilinear incision was marked at the area of the wire entry in the inner lower portion of the breast. It was anesthetized and a scalpel was used to make an incision. Electrocautery was used to raise flaps on either side and neck dissection was carried posteriorly until the mass was identified and removed. It was marked and sent for mammography. The first tissue sample did not contain the clip. There was another area that appeared nodule more inferior and lateral which was excised and sent for mammogram and this did confirm that the clip was in this mass. The cavity was irrigated and electrocautery was used to maintain hemostasis. The skin was closed with interrupted 3-0 Vicryl suture as well as a running 4-0 Monocryl suture and glue was applied. Patient was taken to PACU stable addition tolerated the procedure well. - Admit VTE Documentation VTE Mechan Device Prophylaxis: SCD's
--- NOTE | 2020-05-18 10:19 | DCINST_ITS ---
Discharge Diet: No Restrictions Discharge Activity: May Not Drive - for 2-3 days or while taking narcotic pain meds., May Shower - tomorrow May shower in (days): 1 Lifting Restrictions: 10 pounds for 1 week. Call your doctor if your incision/area has: Continuous Slow Oozing, Sudden Increased Bleeding, Increased Pain/ Swelling, Increased Redness, Foul Smelling Discharge, Swelling at the incision site Call your doctor if you observe: Fever of 101 or Higher Suture Line Care: Avoid Pulling/Pushing, Avoid Pinching/Bending Additional Dressing/Incision Instructions:: Remove bulky dressing tomorrow. May leave any opsite dressing for 3-4 days. Keep dressing in place until your follow-up appointment. Allergies/Adverse Reactions: Allergies No Known Allergies Allergy (Verified 05/16/20 12:05) Medications to take at Discharge cholecalciferol (vitamin D3) 50 mcg (2,000 unit) capsule 50 mcg PO DAILY 05/10/20 Acetaminophen [Tylenol] 325 mg PO PRN PRN 05/16/20 Allergy Shot MO 05/16/20 Ibuprofen 200 mg PO PRN PRN 05/16/20 Oxycodone HCl/Acetaminophen [Percocet 5-325 mg Tablet] 1 tab PO Q6H PRN PRN 3 Days #10 tablet 05/18/20 The following prescriptions were given: Oxycodone HCl/Acetaminophen [Percocet 5-325 mg Tablet] 1 tab PO Q6H PRN PRN 3 Days #10 tablet PRN Reason: Pain Score 4-10/10 Transmission Status: Sent to [facility] Please Follow Up With: Hayden Tesfaye MD When: Please call to schedule 2 week follow up appointment. [phone]
== END 2020-05-18 11:07 | disposition home or self-care (01) ==
LOC: SDC 07:57 → AC 07:57
PROVIDERS: Referring Provider Surgery; Visit Provider Surgery
PROC: (CPT 19125; principal; 2020-05-18 09:15)
DX: D24.2 Benign neoplasm of left breast (principal); Z20.828 Contact with and (suspected) exposure to other viral communicable diseases; Z87.891 Personal history of nicotine dependence
CPT/HCPCS: 00400; 19125; 19281; 76098; 87426; 88305; 88307; C9803; J7120; J2405

== ENCOUNTER → 2020-09-01 12:38 | Outpatient (CLI) | payer OTHER, SELFPAY ==
--- NOTE | 2020-09-01 13:00 | MRI_ITS ---
STUDY: MRI ABDOMEN WITH AND WITHOUT CONTRAST REASON FOR EXAM: Female, 40 years old. [place] syndrome TECHNIQUE: Standardized fat and water weighted pulse sequences were obtained in all 3 orthogonal planes post contrast administration. IV 15ml Dotarem was administered for the contrast portion of the examination. COMPARISON: CT of the abdomen and pelvis dated 07/18/20 FINDINGS: The visualized lung bases are unremarkable. The visualized portions of the heart are within normal limits. Normal liver. Normal gallbladder and extrahepatic biliary system. Normal spleen. Normal pancreas. Normal bilateral adrenal glands. Normal right kidney. Normal left kidney. There is no bowel obstruction. There is a large amount of stool in the colon, consistent with constipation. Normal abdominal aorta. Normal inferior vena cava. Normal retroperitoneum. Normal abdominal wall. Normal osseous structures. MRI/MRI Abd WITH and W/O Contrast IMPRESSION: Normal kidneys. No renal masses. No hydronephrosis. No bowel obstruction. Constipation. Otherwise, unremarkable contrast-enhanced abdominal MRI. Electronically Signed: Luis Manuel Field MD at 14:01 EST Tel , Service support ,
== END ==
PROVIDERS: PCP Nurse Practitioner Family; Referring Provider Nurse Practitioner Family; Visit Provider Nurse Practitioner Family
DX: D48.1 Neoplasm of uncertain behavior of connective and other soft tissue (principal)
CPT/HCPCS: 74183; A9575

== ENCOUNTER → 2021-01-04 16:36 | Outpatient (CLI) | payer OTHER, SELFPAY ==
[2021-01-04 11:25] VITALS: BMI 30.3
--- NOTE | 2021-01-04 16:38 | US_ITS ---
STUDY: ULTRASOUND OF THE FEMALE PELVIS - COMPLETE REASON FOR EXAM: Female, 40 years old. pelvic pain status post surgical removal of the uterus and right ovary. TECHNIQUE: Transabdominal real-time exam with grayscale image documentation. Transvaginal ultrasound was acquired for adequate visualization of the remaining gynecologic structures. TECHNICAL QUALITY: Adequate. COMPARISON: Prior abdomen and pelvic CT exam of 07/08/2019 FINDINGS: The left ovary is visualized. The left ovary measures 4.9 x 4.9 x 3.3 cm. 3.8 x 3.3 x 2.9 cm complex mass cystic, hypoechoic solid and hyperechoic solid tissues. There is no visualized left adnexal mass or complex lesion. There is normal arterial and normal venous vascularity. There is no fluid in the cul-de-sac. Unremarkable nondistended urinary bladder. US/Pelvic (Non ) IMPRESSION: 3.8 x 3.3 x 2.9 cm complex cystic and solid mass remains in the pelvis presumably left ovarian as there is surgical history of removal of the right ovary and uterus. Normal DOPPLER flow. Negative for free fluid. Electronically Signed: Keerthi West MD at 18:26 EDT , Service support ,
--- NOTE | 2021-01-04 16:38 | US_ITS ---
STUDY: ULTRASOUND OF THE FEMALE PELVIS - COMPLETE REASON FOR EXAM: Female, 40 years old. pelvic pain status post surgical removal of the uterus and right ovary. TECHNIQUE: Transabdominal real-time exam with grayscale image documentation. Transvaginal ultrasound was acquired for adequate visualization of the remaining gynecologic structures. TECHNICAL QUALITY: Adequate. COMPARISON: Prior abdomen and pelvic CT exam of 07/08/2019 FINDINGS: The left ovary is visualized. The left ovary measures 4.9 x 4.9 x 3.3 cm. 3.8 x 3.3 x 2.9 cm complex mass cystic, hypoechoic solid and hyperechoic solid tissues. There is no visualized left adnexal mass or complex lesion. There is normal arterial and normal venous vascularity. There is no fluid in the cul-de-sac. Unremarkable nondistended urinary bladder. US/Transvaginal Non- IMPRESSION: 3.8 x 3.3 x 2.9 cm complex cystic and solid mass remains in the pelvis presumably left ovarian as there is surgical history of removal of the right ovary and uterus. Normal DOPPLER flow. Negative for free fluid. Electronically Signed: Keerthi West MD at 18:26 EDT , Service support ,
== END ==
PROVIDERS: PCP Family Medicine; Referring Provider Nurse Practitioner Women's Health; Visit Provider Nurse Practitioner Women's Health
DX: R10.2 Pelvic and perineal pain (principal)
CPT/HCPCS: 76830; 76856; 93976

== ENCOUNTER → 2021-01-13 10:00 | Outpatient (CLI) | payer OTHER, SELFPAY ==
[2021-01-04 11:25] VITALS: BMI 30.3
[2021-01-13 11:11] LABS: hCG Titer Quant., Serum < 1 mIU/mL (1-3)
[2021-01-14 13:07] LABS: AFP, Tumor Marker 3.9 ng/mL (0.0-8.3); Cancer Antigen 125 2303 9.9 U/mL (0.0-38.1); Carcinoembryonic Antigen 2139 1.1 ng/mL (0.0-4.7)
== END ==
PROVIDERS: PCP Family Medicine; Referring Provider Obstetrics & Gynecology; Visit Provider Obstetrics & Gynecology
DX: Z15.09 Genetic susceptibility to other malignant neoplasm (principal)
CPT/HCPCS: 36415; 82105; 82378; 84702; 86304

== ENCOUNTER 2021-01-30 12:19 | Day surgery (SDC) | payer OTHER, SELFPAY ==
[2021-01-25 12:11] VITALS: BMI 30.3
--- NOTE | 2021-01-29 18:54 | PCM.HP.BLA ---
History and Physical Date of Admission: 01/30/21 Vital Signs 01/25/21 12:06 01/25/21 12:10 01/25/21 12:11 Height 5 ft 3 in Weight: 173 lb BMI 30.3 30.6 30.3 BP 120/84 H Intake Visit Reasons: FU labs/surgical consult Chief Complaint: follow up, surgical consult Ent Surgeon Required: No Is patient in pain?: No Allergies No Known Allergies Allergy (Verified 01/26/21 13:17) Medications Allergy Shot 0.25 mg MISCELLANEOUS QWEEK 05/16/20 [History Confirmed 01/26/21] acetaminophen 325 mg PO PRN PRN 05/16/20 [History Confirmed 01/26/21] ibuprofen 200 mg PO PRN PRN 05/16/20 [History Confirmed 01/26/21] Is last menstrual period known: No Post menopausal: No Patient : No : No PFS Medical History (Updated 01/28/21 @ 07:[address] 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 Surgical History (Updated 01/26/21 @ 13:26 by Ashley Mcneil) H/O: hysterectomy History of delivery Hx of appendectomy meniscus repair removal of clip Status post left breast lumpectomy Status post oophorectomy Family History Mother Breast cancer Social History Smoking Status: Former smoker alcohol intake: current details: social substance use type: does not use caffeine: Yes what type of physical activity do you participate in: walking and running frequency: 3-4 times per week seatbelt use: always do you feel safe at home: Yes additional 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 she had all lower frontal abdominal pain increasing and then it felt like something shifted and pain resolved after bending over. She had a history of torsion of the right ovary and subsequently underwent an oophorectomy. Female Reproductive History Menopausal Symptoms: No night sweats Pregancy History 3 Elective abortions Hx Para 2 Spontaneous abortions Hx # Term Pregnancies Ectopic pregnancies Hx # Pregnancies Multiple births # of living children Past Pregnancies Del. Date Name GA/Weeks Outcome Route Bth Weight Infant Gen Labor Lgth Anesthesia Del [facility] Provider FOB Unknown Lacie Female Unknown 2004 Aurelio Male ROS Const Constitutional: Denies fatigue, night sweats, weight gain or weight loss ENT ENT: Reports system reviewed and no additional complaints, except as documented Cardio Card: Denies chest pain Resp Resp: Denies cough or dyspnea GI GI: Reports as per HPI; Denies abdominal pain, constipation, nausea or vomiting : Reports urinary urgency; Denies nipple discharge, urinary frequency, urinary incontinence, urinary hesitancy, vaginal discharge, vaginal dryness, vaginal odor or vaginal pruritus Musc Musc: Denies arthralgias, back pain or muscle weakness Skin Skin/Breast: Reports breast pain; Denies alopecia, change in hair, dry skin, breast mass, breast skin changes or nipple discharge Neuro Neuro: Reports system reviewed and no additional complaints, except as documented Psych Psych: Reports system reviewed and no additional complaints, except as documented Endo Endo: Denies cold intolerance, excessive sweating, heat intolerance or polydipsia Osmin/Lymph Hematologic/Lymphatic: Denies easy bleeding, Reports easy bruising and Denies lymphadenopathy Exam Const General: cooperative, healthy appearing, comfortable, no acute distress and well developed Orientation: alert [facility] Head: normal to inspection and normocephalic Ears: hearing grossly normal bilaterally and external ears normal Nose: external nose normal and nares normal Face and sinus: normal facial exam Neck Neck: normal visual inspection and no lymphadenopathy Thyroid: thyroid normal Chest Chest palpation & inspection: normal inspection of the chest Resp Effort & Inspection: normal respiratory effort Auscultation: clear to auscultation bilaterally Cardio Rate: regular rate Rhythm: regular rhythm Heart Sounds: S1 normal and S2 normal GI Inspection: normal to inspection and non-distended Palpation: soft and no hepatosplenomegaly Musc Other: gross motor intact no deficits, full bilateral strength Skin General: no rashes or lesions noted Neuro General: patient alert, patient awake, moves all extremities and no focal motor deficits Motor: muscle tone normal throughout Extrem General: normal to inspection and no pedal edema Psych Appearance: grossly normal Mental Status: mental status grossly normal Affect: normal affect Speech and Movement: speech and movement normal Coding Level of Care Code Off vis,est,level 4 Diagnoses Pelvic pain R10.2 Assessment and Plan Assessment and Plan (1) Pelvic pain: Status: Acute Comment: Suspect intermittent torsion recommend laparoscopic oophorectomy. Plan - Dr. Maria M Perez MD: After discussing the patient's diagnosis and treatment plan options, patient wishes to proceed with surgical management. I have discussed with the patient the risks, benefits, and alternatives of the procedure which include but are not limited to risks of anesthesia, bleeding, infection, possible damage to bowel, bladder, or surrounding vasculature which could lead to additional surgery to evaluate any complications. Patient agrees to procedure and wishes to proceed. ACOG/uptodate references given for additional information regarding procedure. UPDATE- I have seen the patient and performed any clinically relevant updates to the history and physical exam. Maria M Perez MD
[2021-01-30 12:53] VITALS: BP 116/77; PULSE 64; RESP 16; TEMP 36.8; O2SAT 100; BMI 30.2
[2021-01-30 12:58] LABS: Absolute Lymphocyte Count 1.84 X10^3/uL (0.83-4.51); Basophil# 0.03 X10^3/uL; Basophil% 0.6 % (0-1); Eosinophil# 0.01 X10^3/uL; Eosinophils% 0.2 % (0-5); Hematocrit 38.8 % (37-47); Hemoglobin 12.9 g/dL (12.0-15.0); Lymphocyte # 1.84 X10^3/ul (0.83-4.51); Lymphocyte % 35.9 % (19-41); Mean Corp Hgb Conc 33.2 g/dL (32-36); Mean Corpuscular Hgb 29.9 pg (27.0-32.0); Mean Corpuscular Volume 89.8 fL (81-99); Mean Platelet Vol. 9.2 fl (6.2-12.0); Monocyte# 0.28 X10^3/uL; Monocyte% 5.5 % (0-10); NRBC Flagged by Analyzer 0 % (0-5); Neutrophil # 2.95 X10^3/uL (2.7-7.7); Neutrophil % 57.4 % (47-70); Platelet Count 240 K/mm3 (150-450); RBC Distribution Width CV 11.9 % (11.6-14.6); RBC Distribution Width SD 39.1 fl (35.1-43.9); Red Blood Count 4.32 M/mm3 (4.2-5.4); White Blood Count 5.1 K/mm3 (4.4-11.0)
[2021-01-30] MEDS: Lactated Ringers 1,000 ML 100 ML IV ×3 (12:59→17:57)
--- NOTE | 2021-01-30 14:00 | OV_PTH ---
PATIENT: KYRA JO LOC: [facility] – [place] U#:[id number] AGE/SX: 40/F ROOM: RE01/30/[address]: Dr. Maria M Perez MD : 1980 BED: DIS: 01/30/2021 SPEC #: [id number] RECD: 01/31/21 10:16 STATUS: [facility] #: [id number] ERIN: 01/30/21 14:[address]: Maria M Perez DEPT: SURGICAL PATHOLOGY RECD BY: Danielle Penn ENTERED: 01/31/21 10:51 SP TYPE: OVARY OTHR DR: Dr. Ezio Ball MD Tissues: Left ovary Procedures: Surgery Specimen Level IV HEADER OPERATION: Laparoscopic oophorectomy PRE-OP DIAGNOSIS: Pelvic pain TISSUE SUBMITTED: Left ovary MICROSCOPIC DIAGNOSIS Left ovary, oophorectomy: Follicular cyst, hemorrhagic corpus luteal cysts and corpora albicantia. AM:ghanshyam 02/01/2021 MICROSCOPIC DESCRIPTION Slides are reviewed. GROSS DESCRIPTION Received in fixative is one container labeled with the patient's name and designated left ovary. The specimen consists of a soft to cystic ovary measuring 4.5 x 4.5 x 3 cm and weighing 17 gm. The outer surface is wrinkled without any papillation and it is inked black. Sections reveal a cyst with focal hemorrhagic area measuring 2 cm in greatest dimension. Multiple smaller cysts are also noted. Some of the cysts have hemorrhagic appearance. Assembly Detailer sections are submitted in four cassettes. / SJ:ghanshyam 01/31/21 TC:5 CPT: 88954
--- NOTE | 2021-01-30 16:59 | OP.PCM_ITS ---
Problems Associated Problem List Diagnoses (1) Pelvic pain: Report of Operation Date of Procedure: 01/30/21 Pre-Operative Diagnosis: pelvic pain left ovarian cyst Post-Operative Diagnosis: same Surgery/Procedure Performed:: laparoscopic left oophorectomy Description of Surgical Findings:: enlarged left multicystic ovary patient care provider: Abdifatah Bhakta Type of Anesthesia: General and Local Special Medications: none Specimen's removed: left ovary Drains: none Estimated Blood Loss (mL): 50 Fluids Replaced: crystalloid Description of Procedure: Patient was taken in the operating room and was placed under general anesthesia was prepped and draped in normal sterile fashion in the dorsal lithotomy position. Bladder was drained of clear urine and SCDs were on preoperatively. Uterus was sounded and a uterine manipulator was placed after dilating. Attention was then paid to the abdominal portion of the procedure and the umbilicus was elevated with towel clamps and injected with Marcaine and after a 12 mm incision was made and the Veress needle was entered into the abdomen confirmed to be intra-abdominal with a low opening pressure of less than 5 mmHg. Abdomen was insufflated with CO2 gas and a 5 mm optical trocar was placed under direct visualization. A right 12 mm and left lower quadrant 5 mm ports were placed under direct visualization. The left ovary was identified and the left infundibulopelvic ligament was transected across using the LigaSure device followed by transecting across some mild scar tissue attaching it to the left pelvic sidewall. Excellent hemostasis was noted. Specimens were removed through the right lower port site through a bag without any intra-abdominal spillage of contents. The fascial incision was closed using the Rafa Robles and an 0 Vicryl. Liver and upper abdomen were visualized notably within normal limits and no other gross abnormalities were seen in the abdomen. All instruments removed from the abdomen after gas was desufflated. Port sites were closed with 3-0 Monocryl Steri's and op sites were applied. All instruments removed from the vagina and patient was awoken and taken recovery in stable cond ition. Grafts/Implants Used: none Complications none Admit VTE Documentation VTE Present on Admission: No VTE Mechan Device Prophylaxis: SCD's Procedures Urinary/Genital 52xxx-59xxx: [id number] Laproscopic BS/O
--- NOTE | 2021-01-30 17:02 | DCINST_ITS ---
Discharge Instructions Diet Discharge Diet: No restrictions Activity Discharge Activity: Return to Normal Activity, May Not Drive (for 2 weeks or while taking narcotic pain meds.), May Shower and May Take a Tub Bath (in 7 days) May resume sexual activity in: 1 week Weight Bearing Status: Full weight bearing Dressing / Incision Call your doctor if your incision/area has: Continuous Slow Oozing, Sudden Increased Bleeding, Increased Pain/ Swelling, Increased Redness and Foul Smelling Discharge Call your doctor if you observe: Fever of 101 or Higher, Using more than 1 pad per hour, Shortness of breath, Chest pain and Uncontrolled pain Suture Line Care: Avoid Pulling/Pushing and Avoid Pinching/Bending Remove Dressing in: 1 week (if present) Cleanse incision/area with: Soap & Water and Keep Dressing Clean & Dry Follow Up Care When: Call to make an appointment with your doctor for a fu/incision check in 1- 2 weeks. Test Results: Test results from this visit will be discussed in further detail at your follow-up appointment, if applicable. Discharge Plan Admission Primary Reason for Your Visit: ovary removal Attending Provider: Maria M Perez Primary Care Provider: Ezio Ball Discharge Orders/Prescriptions Prescriptions: New naproxen 250 MG tablet 250 - 500 mg PO Q8H PRN PRN (Reason: MILD PAIN) Qty: 30 RF: 1 oxycodone-acetaminophen [Endocet] 5-325 mg tablet 1 tab PO Q4H PRN (Reason: pain) 7 Days Qty: 20 RF: 0 estradiol [Climara] 0.06 mg/24 hr patch weekly 1 patch transdermal QWEEK Qty: 4 RF: 12 Continued Allergy Shot 0.25 mg miscellaneous QWEEK RF: 0 ibuprofen 200 MG tablet 200 mg PO PRN PRN (Reason: Pain/Inflammation) RF: 0 acetaminophen 325 MG capsule 325 mg PO PRN PRN (Reason: Pain/Inflammation) RF: 0 Referrals / Follow Up: Ezio Ball MD [Primary Care Provider] - Disposition Disposition (needs filled in before D/C Order can be placed): Home, Self Care
[2021-01-30] MEDS: Bupivacaine 0.25% 30 ML Vial (17:04)
[2021-01-30 17:17] VITALS: BP 106/72; BP 116/77; PULSE 62; RESP 18; TEMP 36.8; O2SAT 100
[2021-01-30 17:30] VITALS: BP 111/73; BP 116/77; PULSE 54; RESP 16; O2SAT 100
[2021-01-30 18:00] VITALS: BP 111/79; BP 116/77; PULSE 72; RESP 18; O2SAT 100
[2021-01-30 18:08] VITALS: BP 105/61; BP 116/77; PULSE 65; RESP 18; TEMP 36.2; O2SAT 100
[2021-01-30 19:50] VITALS: BP 103/62; BP 116/77; PULSE 74; RESP 16; TEMP 36.7; O2SAT 92
== END 2021-01-30 20:08 | disposition home or self-care (01) ==
LOC: SDC 12:19 → AC 12:21
PROVIDERS: PCP Family Medicine; Referring Provider Obstetrics & Gynecology; Visit Provider Obstetrics & Gynecology
PROC: (CPT 58720; principal; 2021-01-30 13:45)
DX: N83.02 Follicular cyst of left ovary (principal); N83.12 Corpus luteum cyst of left ovary; Z90.721 Acquired absence of ovaries, unilateral; Z87.891 Personal history of nicotine dependence
CPT/HCPCS: 58661; 85025; 86850; 86900; 86901; 88305; J7120; J2405

== ENCOUNTER → 2021-06-18 15:13 | Outpatient (CLI) | payer OTHER, SELFPAY ==
--- NOTE | 2021-06-18 15:15 | BI_ITS ---
MAMMOGRAPHY - BILATERAL SCREENING REASON FOR EXAM: Female, 40 years old. Routine annual screening examination. PERTINENT HISTORY: Mother with breast cancer. Grandmother with breast cancer. History of prior left excisional breast biopsy. TECHNIQUE: Digital bilateral breast doris (3D mammographic acquisition) in the CC and MLO projections. 2-D mediolateral oblique (MLO) and craniocaudad (CC) views of both breasts were obtained. CAD: Full Field Digital Mammography with Computer Added Detection was performed. COMPARISON: Comparison is made with prior study via 05/03/2020 and 10/01/2017. FINDINGS: Breast Composition: The breasts are heterogeneously dense, which may obscure small masses. There are no dominant masses or suspicious calcifications. The previously seen nodular density in the deep inferior slightly medial portion of the left breast has been excised. No new mass lesion or cluster microcalcifications present. No other significant abnormalities are identified. BI/SCRN MAMM (CAD)W/DORIS BILAT IMPRESSION: Status post excisional biopsy of the previously seen nodule in the deep inferior slightly medial portion of the left breast. Yearly follow-up mammogram recommended. (A) ASSESSMENT CATEGORY: BIRADS Category 2: Benign. A letter regarding these results will be sent to the patient by the facility within 30 days. Approximately 10% of breast cancers are not detected by mammography. A normal mammogram should not delay biopsy of a clinically suspicious abnormality. [id number] Electronically Signed: Kan Lawrence MD at 8:20 EST , Service support ,
== END ==
PROVIDERS: PCP Family Medicine; Visit Provider Obstetrics & Gynecology
DX: Z12.31 Encounter for screening mammogram for malignant neoplasm of breast (principal)
CPT/HCPCS: 77063; 77067

== ENCOUNTER 2021-10-01 07:12 | Outpatient (CLI) | payer OTHER, SELFPAY ==
--- NOTE | 2021-10-01 07:33 | MRI_ITS ---
STUDY: MRI ABDOMEN WITH AND WITHOUT CONTRAST REASON FOR EXAM: Female, 41 years old. LEIOMYOMETOSIS, RENAL CELL, CA, MIKAELA''S SYNDROME TECHNIQUE: Standardized fat and water weighted pulse sequences were obtained in all 3 orthogonal planes post contrast administration. 15ML IV DOTAREM was administered for the contrast portion of the examination. A COMPARISON: 09/01/2020. FINDINGS: The visualized lung bases are unremarkable. The visualized portions of the heart are within normal limits. Normal liver. Normal gallbladder and extrahepatic biliary system. Normal spleen. Normal pancreas. Normal bilateral adrenal glands. Normal right kidney. Normal left kidney. Normal visualized stomach. Normal small intestine. Normal colon. Normal abdominal aorta. Normal inferior vena cava. Normal retroperitoneum. Normal abdominal wall. Normal osseous structures. MRI/MRI Abd WITH and W/O Contrast IMPRESSION: No evidence of renal cell carcinoma. Electronically Signed: Mo Alvarez MD at 18:08 EDT ,
[2021-10-01 07:45] LABS: CREATININE FINGERSTICK 0.6 mg/dL (0.55-1.02); EGFR FINGERSTICK > 60.0000 mL/min (>60)
== END 2021-10-01 23:59 | disposition home or self-care (01) ==
LOC: MRI 07:13
PROVIDERS: PCP Family Medicine; Referring Provider Family Medicine; Visit Provider Family Medicine
DX: D48.1 Neoplasm of uncertain behavior of connective and other soft tissue (principal); Z15.09 Genetic susceptibility to other malignant neoplasm; Z84.89 Family history of other specified conditions
CPT/HCPCS: 74183; A9575

== ENCOUNTER → 2022-05-13 | Outpatient (CLI) | payer OTHER, SELFPAY | END | disposition home or self-care (01) | LOC: LABSPEC 15:52 | PROVIDERS: PCP Family Medicine; Visit Provider Otolaryngology | DX: J02.9 Acute pharyngitis, unspecified (principal) | CPT/HCPCS: 87070 ==

== ENCOUNTER → 2022-06-18 | Outpatient (CLI) | payer OTHER, SELFPAY ==
--- NOTE | 2022-06-18 11:51 | BI_ITS ---
MAMMOGRAPHY - BILATERAL SCREENING REASON FOR EXAM: Female, 41 years old. Routine annual screening examination. PERTINENT HISTORY: Mother with breast cancer. Grandmother with breast cancer. Prior left excisional breast biopsy. TECHNIQUE: Digital bilateral breast doris (3D mammographic acquisition) in the CC and MLO projections. 2-D mediolateral oblique (MLO) and craniocaudad (CC) views of both breasts were obtained. CAD: Full Field Digital Mammography with Computer Added Detection was performed. COMPARISON: Comparison is made with prior study dated 06/18/2021 and 05/03/2020. FINDINGS: Breast Composition: The breasts are heterogeneously dense, which may obscure small masses. There are no dominant masses or suspicious calcifications. The patient is status post excisional breast biopsy in the deep inferior medial aspect of the left breast with resultant postoperative scarring. No other significant abnormalities are identified. There has been no significant change since the prior study. BI/SCRN MAMM (CAD)W/DORIS BILAT IMPRESSION: Stable bilateral screening mammogram. Yearly follow-up mammogram recommended. (A) ASSESSMENT CATEGORY: BIRADS Category 2: Benign. A letter regarding these results will be sent to the patient by the facility within 30 days. Approximately 10% of breast cancers are not detected by mammography. A normal mammogram should not delay biopsy of a clinically suspicious abnormality. [id number] Electronically Signed: Kan Lawrence MD at 12:40 EST ,
== END | disposition home or self-care (01) ==
LOC: OPBI 11:50
PROVIDERS: PCP Family Medicine; Visit Provider Obstetrics & Gynecology
DX: Z12.31 Encounter for screening mammogram for malignant neoplasm of breast (principal)
CPT/HCPCS: 77063; 77067

== ENCOUNTER → 2022-07-24 | Outpatient (CLI) | payer OTHER, SELFPAY | END | disposition home or self-care (01) | LOC: LABSPEC 15:04 | PROVIDERS: PCP Family Medicine; Referring Provider Otolaryngology; Visit Provider Otolaryngology | DX: J02.9 Acute pharyngitis, unspecified (principal) | CPT/HCPCS: 87070; 87077 ==

== ENCOUNTER → 2022-09-11 | Outpatient (CLI) | payer OTHER, SELFPAY ==
--- NOTE | 2022-09-11 08:11 | EKG12_ITS ---
Test Reason : PRE-OP Blood Pressure : / mmHG Vent. Rate : 056 BPM Atrial Rate : 056 BPM P-R Int : 172 ms QRS Dur : 110 ms QT Int : 440 ms P-R-T Axes : 045 011 028 degrees QTc Int : 424 ms Sinus bradycardia Nonspecific T wave abnormality Abnormal ECG Confirmed by HOLLY WRIGHT, MURTAZA ([id number]), legal editor NEETA OLIVEIRA ([id number]) on 09/12/2022 9:21:19 AM Referred By: ALVARO Confirmed By:MURTAZA BARRERA MD
== END | disposition home or self-care (01) ==
LOC: PSN 08:10
PROVIDERS: PCP Family Medicine; Visit Provider Obstetrics & Gynecology
DX: E66.8 Other obesity (principal)
CPT/HCPCS: 93005

== ENCOUNTER → 2022-09-16 | Outpatient (CLI) | payer OTHER, SELFPAY ==
--- NOTE | 2022-09-16 08:25 | MRI_ITS ---
EXAM: MR ABDOMEN WITHOUT AND WITH INTRAVENOUS CONTRAST CLINICAL INDICATION: REEDS SYNDROME TECHNIQUE: Multiplanar and multisequence MR images of the abdomen without and with intravenous contrast. This report was created using [employer] report generation technology. CONTRAST: 15CC IV CLARISCAN COMPARISON: MR Abdomen dated 10/01/2021 FINDINGS: LOWER THORAX: Normal. No pleural effusion. LIVER: Normal. Normal morphology. No focal mass. GALLBLADDER AND BILE DUCTS: Normal. No gallstones. No gallbladder distention or wall edema. No intra- or extrahepatic biliary ductal dilation. PANCREAS: Normal. No focal cystic or solid mass. SPLEEN: Normal. Normal size without focal cystic or solid mass. ADRENALS: Normal. No nodules. KIDNEYS AND URETERS: Normal. Normal renal size and position. No hydronephrosis. STOMACH AND BOWEL: Moderate stool burden noted within the large bowel. INTRAPERITONEAL SPACE: Normal. No ascites or other fluid collection. No free air. VASCULATURE: Normal. Abdominal aorta is non-dilated. LYMPH NODES: No enlarged lymph nodes. MRI/MRI Abd WITH and W/O Contrast IMPRESSION: 1. No evidence of renal mass. 2. Constipation Electronically Signed: Lalo Riley MD at 16:00 EDT ,
== END | disposition home or self-care (01) ==
LOC: MRI 08:07
PROVIDERS: PCP Family Medicine
DX: D48.1 Neoplasm of uncertain behavior of connective and other soft tissue (principal)
CPT/HCPCS: 74183; A9575

== ENCOUNTER → 2022-12-10 | Outpatient (CLI) | payer OTHER, SELFPAY ==
[2022-12-10 13:12] LABS: ALB/GLOB Ratio 1.1 RATIO (0.9-2.4); AST(SGOT) 19 U/L (15-37); Alanine Aminotransfer ALT/SGPT 20 U/L (13-56); Alkaline Phosphatase 54 U/L (45-117); Anion Gap 6 (5-15); BUN 10 mg/dL (7-18); Calcium,Total 9.6 mg/dL (8.5-10.1); Chloride 107 mmol/L (98-107); Creatinine, Serum 0.66 mg/dL (0.55-1.02); EST Glomerular Filtration Rate 104 mL/min (>60); Est Glom Filt Rate - Afr Amer 126 mL/min (>60); Globulin 3.5 g/dL (2.2-4.2); Glucose 90 mg/dL (74-106); Potassium 4.6 mmol/L (3.5-5.1); Protein, Total 7.5 g/dL (6.4-8.2); Sodium Level 139 mmol/L (136-145); Thyroid Stim Hormone (TSH) 2.21 uIU/mL (0.358-3.74)
== END | disposition home or self-care (01) ==
LOC: LAB 11:31
PROVIDERS: PCP Family Medicine; Referring Provider Obstetrics & Gynecology; Visit Provider Obstetrics & Gynecology
DX: E66.9 Obesity, unspecified (principal)
CPT/HCPCS: 36415; 80053; 84443

== ENCOUNTER → 2023-06-19 | Outpatient (CLI) | payer OTHER, SELFPAY ==
--- NOTE | 2023-06-19 10:10 | BI_ITS ---
MAMMOGRAPHY - BILATERAL SCREENING REASON FOR EXAM: Female, 42 years old. Routine annual screening examination. PERTINENT HISTORY: Mother with breast cancer. Grandmother with breast cancer. Prior left excisional breast biopsy. TECHNIQUE: Digital bilateral breast doris (3D mammographic acquisition) in the CC and MLO projections. 2-D mediolateral oblique (MLO) and craniocaudad (CC) views of both breasts were obtained. CAD: Full Field Digital Mammography with Computer Added Detection was performed. COMPARISON: Comparison is made with prior study dated June 18, 2022 and June 18, 2012. FINDINGS: Breast Composition: The breasts are heterogeneously dense, which may obscure small masses. There are no dominant masses or suspicious calcifications. No other significant abnormalities are identified. There has been no significant change since the prior study. BI/SCRN MAMM (CAD)W/DORIS BILAT IMPRESSION: Stable bilateral screening mammogram. Yearly follow-up mammogram recommended. (A) ASSESSMENT CATEGORY: BIRADS Category 1: Negative. A letter regarding these results will be sent to the patient by the facility within 30 days. Approximately 10% of breast cancers are not detected by mammography. A normal mammogram should not delay biopsy of a clinically suspicious abnormality. [id number] Electronically Signed: Kan Lawrence MD at 10:46 EST ,
== END | disposition home or self-care (01) ==
LOC: OPBI 10:09
PROVIDERS: PCP Family Medicine; Referring Provider Obstetrics & Gynecology; Visit Provider Obstetrics & Gynecology
DX: Z12.31 Encounter for screening mammogram for malignant neoplasm of breast (principal)
CPT/HCPCS: 77063; 77067

== ENCOUNTER → 2023-09-19 | Outpatient (CLI) | payer OTHER, SELFPAY ==
--- NOTE | 2023-09-19 07:23 | MRI_ITS ---
MRI Abdomen w/ and w/out contrast 09/19/2023 8:01 AM COMPARISON: 09/16/2022 CLINICAL HISTORY: REEDS SYNDROME, S/P HYSTERECTOMY TECHNIQUE: Multiplanar T1 and T2 weighted, diffusion and dynamic post-gadolinium images were obtained through the abdomen before and after administration of 13 cc of IV Clariscan.. 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 No filling defect. Gallbladder: Unremarkable Pancreas: Unremarkable Spleen: Unremarkable Adrenal Glands: Unremarkable Kidneys: No suspicious enhancing renal mass. GI Tract: Large amount of retained stool in the colon. Lymphadenopathy: Absent Reproductive: Surgically absent. Ascites: Absent Bones: No suspicious lesions MRI/MRI Abd WITH and W/O Contrast IMPRESSION: Large amount of fecal retention in the colon limits evaluation. No evidence of renal cell carcinoma. 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 No thrombus. Electronically Signed: Mo Alvarez MD at 1:09 EDT ,
== END | disposition home or self-care (01) ==
PROVIDERS: PCP Family Medicine
DX: D48.19 Other specified neoplasm of uncertain behavior of connective and other soft tissue (principal)
CPT/HCPCS: 74183; A9575

== ENCOUNTER → 2024-06-21 | Outpatient (CLI) | payer OTHER, SELFPAY ==
--- NOTE | 2024-06-21 07:40 | BI_ITS ---
MAMMOGRAPHY - BILATERAL SCREENING 3-D TOMOSYNTHESIS REASON FOR EXAM: Female, 43 years old. screening PERTINENT HISTORY: No significant family history. TECHNIQUE: 2-D mammograms and 3-D Tomosynthesis of the breast (s) were performed. CAD was performed. COMPARISON: 06/19/2023 FINDINGS: The breast composition is composed of scattered fibroglandular density. Scattered benign calcifications are seen. No dense spiculated masses or suspicious microcalcifications are identified. No architectural distortion is identified. There is no skin thickening or retraction. There has been no significant change since the prior study. BI/SCRN MAMM (CAD)W/ODRIS BILAT IMPRESSION: No mammographic signs of malignancy. Routine yearly mammograms recommended. ASSESSMENT CATEGORY: BIRADS Category 1: Negative. A letter regarding these results will be sent to the patient by the facility within 30 days. FOLLOW UP RECOMMENDATION: Yearly follow up mammogram recommended. (A) Approximately 10% of breast cancers are not detected by mammography. A normal mammogram should not delay biopsy of a clinically suspicious abnormality. Electronically Signed: Idlefonso Dumont MD at 17:39 EST ,
== END | disposition home or self-care (01) ==
LOC: OPBI 07:40
PROVIDERS: PCP Family Medicine; Referring Provider Obstetrics & Gynecology; Visit Provider Obstetrics & Gynecology
DX: Z12.31 Encounter for screening mammogram for malignant neoplasm of breast (principal)
CPT/HCPCS: 77063; 77067

== ENCOUNTER → 2025-06-24 | Outpatient (CLI) | payer BC, SELFPAY ==
--- NOTE | 2025-06-24 07:15 | BI_ITS ---
EXAM: Digital screening mammogram with doris and CAD DATE: 06/24/2025 CLINICAL HISTORY: F, Age 44 y/o , SCREENING TECHNIQUE: Procedure Code: [id number] Modality: MG Procedure: SCRN MAMM (CAD)W/DORIS BILAT COMPARISON: Prior exam(s) dated 06/21/2024, 06/19/2023, and 06/18/2022. FINDINGS: TISSUE DENSITY: There are scattered areas of fibroglandular density. Bilateral Breast Mammographic Findings: There are no suspicious masses, suspicious cluster of microcalcifications, architectural distortion or secondary signs of malignancy identified in either breast. Benign round microcalcifications are seen in both breasts. BI/SCRN MAMM (CAD)W/DORIS BILAT IMPRESSION: Benign screening mammogram OVERALL FINAL ASSESSMENT BI-RADS 2: BENIGN RECOMMENDATION: Routine annual follow-up in 1 Year Additional Recommendation none A letter with findings and recommendations will be mailed to the patient. Reading Location: [id number]
--- OUTSIDE RECORDS SUMMARY | 2025-06-24 07:29 | XMS RPT_ITS | CCD ---
Author Organization [facility] Care Team Providers Care Clinical Pharmacy Specialist Name Role Phone Maria M Perez MD Unavailable [phone] ARACELI King RN, Maria M Dumont MD Unavailable [phone] Dr. Yordy Ball Primary Care Provider Dr. Yordy Ball Referring Provider [phone] Dr. Maria M Perez Attending Provider [phone] Dr. Yordy Ball Primary Care Provider Dr. Yordy Ball Referring Provider Dr. Maria M Perez Attending Provider [phone] Dr. Ga Ayala Attending Provider Dr. Maria M Perez Referring Provider Dr. Yordy Ball Primary Care Provider Dr. Yordy Ball Referring Provider Dr. Maria M Perez Attending Provider Dr. Yordy Ball Primary Care Provider Dr. Yordy Ball Referring Provider Dr. Maria M Perez Attending Provider QUINN WRIGHT, DR HOLGUIN Primary Care Physician QUINN WRIGHT, DR HOLGUIN Primary Care UnavailJOHNNY Robbins MD Attending Unavailable PROVIDER, UNKNOWN Attending Unavailable PROVIDER, UNKNOWN Admitting Unavailable KULWINDER RAZA Referring Unavailable Quinn WRIGHT, Dr. Holguin Primary Care Provider Quinn WRIGHT, Dr. Holguin Referring Provider Ana WRIGHT, Dr. Franz Attending Provider Edmund KEY-Bren Hamilton Attending Provider [phone] Quinn WRIGHT, Dr. Holguin Primary Care Provider Quinn WRIGHT, Dr. Holguin Referring Provider Ana WRIGHT, Dr. Franz Attending Provider [phone] Kelly Huertas NP Attending Unavailable Quinn, Yordy Primary Care Unavailable Quinn, Yordy Referring Unavailable Quinn, Yordy Primary Care Unavailable Bren Shaffer Attending Unavailable Quinn, Yordy Referring Unavailable Maria M Perez Attending Unavailable Maria M Perez Referring Unavailable Quinn, Yordy Primary Care Unavailable Quinn, Yordy Primary Care Unavailable Maria M Perez Attending Unavailable Quinn, Yordy Referring Unavailable Quinn, Yordy Primary Care Unavailable Bren Shaffer Attending Unavailable Quinn, Yordy Referring Unavailable Quinn, Yordy Primary Care Unavailable Maria M Perez Attending Unavailable Quinn, Yordy Referring Unavailable Medications Current Medications Medication Drug Class(es) Dates Sig (Normalized) Sig (Original) Allergy Shot (10 sources) Start: 05-16-2020 Allergy Shot A ctive 0.25 MG MC EVERY WEEK May 16, 2020 1:05pm Start: 05-16-2020 Allergy Shot A ctive 0.25 mg MC EVERY WEEK May 16, 2020 1:00am Start: 05-16-2020 Allergy Shot A ctive 0.25 MG MC EVERY WEEK May 16, 2020 1:00am Start: 05-16-2020 Allergy Shot A ctive 0.25 MG MC EVERY WEEK May 16, 2020 12:00am Completed/Discontinued Medications Medication Drug Class(es) Dates Sig (Normalized) Sig (Original) acetaminophen 325 mg oral capsule (20 sources) Start: 05-16-2020 End: 05-14-2021 Acetaminophen 325 MG capsule Discontinued 325 mg PO NEEDED as needed for Pain/Inflammation May 16, 2020 1:00am May 14, 2021 9:43am Start: 07-18-2017 End: 01-13-2018 take 1 tablet by mouth every six hours as needed Acetaminophen (Tylenol Extra Strength) 500 mg tablet Discontinued 500 mg PO EVERY 6 HOURS as needed July 18, 2017 1:00am January 13, 2018 8:49am acetaminophen 325 mg / oxyCODONE hydrochloride 5 mg oral tablet (20 sources) Opioid Agonist Start: 01-30-2021 End: 05-14-2021 Oxycodone-Acetaminophen (Endocet) 5-325 mg tablet Discontinued 1 {tbl} PO Q4H as needed for pain 20 7 0 January 30, 2021 May 14, 2021 9:43am Pain in pelvis History of laparoscopy Pelvic and perineal pain Other specified postprocedural states Start: 05-18-2020 End: 05-21-2020 Oxycodone-Acetaminophen 1 EA CH tablet Discontinued 1 {tbl} PO EVERY 6 HOURS NEEDED as needed for Pain Score 4-10/10 10 3 0 May 18, 2020 May 20, 2020 1:00am May 21, 2020 1:02am 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 Start: 05-18-2020 End: 05-21-2020 take 1 tablet by mouth every six hours as needed Oxycodone-Acetaminophen Discontinued 1 TABLET PO EVERY 6 HOURS NEEDED 10 3 May 18, 2020 May 21, 2020 1:02am Start: 07-19-2019 End: 07-26-2019 Oxycodone-Acetaminophen 1 TA BLET tablet Discontinued 1 - 2 {tbl} PO EVERY 6 HOURS NEEDED as needed for Pain 15 7 0 July 19, 2019 July 25, 2019 1:00am July 26, 2019 1:07am Other acute postprocedural pain Start: 07-19-2019 End: 07-26-2019 take 1 tablet by mouth every six hours as needed Oxycodone-Acetaminophen Discontinued 1 - 2 TABLET PO EVERY 6 HOURS NEEDED 15 7 July 19, 2019 July 26, 2019 1:07am Start: 06-05-2017 End: 06-26-2017 Oxycodone-Acetaminophen 1 TA BLET tablet Discontinued 2 {tbl} PO EVERY 4 HOURS NEEDED as needed for Moderate-Severe pain 28 0 June 05, 2017 1:00am June 26, 2017 1:45pm Start: 06-05-2017 End: 06-26-2017 take 2 tablets by mouth every four hours as needed Oxycodone-Acetaminophen Discontinued 2 TABLET PO EVERY 4 HOURS NEEDED June 05, 2017 1:00am June 26, 2017 1:45pm amoxicillin 250 mg oral capsule (20 sources) Penicillin-class Antibacterial Start: 03-25-2018 End: 04-06-2018 take 1 capsule by mouth twice daily Amoxicillin 250 mg capsule Discontinued 250 mg PO TWICE A DAY March 25, 2018 12:00am April 06, 2018 9:42am Start: 06-26-2017 End: 07-18-2017 take 1 capsule by mouth twice daily Amoxicillin 500 mg capsule Discontinued 500 mg PO TWICE A DAY June 26, 2017 1:00am July 18, 2017 10:23am cholecalciferol 0.05 mg oral capsule (10 sources) Vitamin D Start: 05-10-2020 End: 01-25-2021 take 1 capsule by mouth once daily Cholecalciferol (Vitamin D3) 50 mcg (2,000 unit) capsule Discontinued 50 ug PO DAILY May 10, 2020 1:00am January 25, 2021 12:11pm DESOGESTREL-ETHINYL ESTRADIOL (19 sources) Progestin, Estrogen Start: 02-10-2017 End: 05-02-2017 APRI 0.15-30 MG-MCG TABS take only active pills discard inactive start new pack immediately DESOGESTREL-ETHINYL ESTRADIOL [id number] Maria M Perez MD Start: 02-10-2017 APRI 0.15-30 M G-MCG TABS take only active pills discard inactive start new pack immediately DESOGESTREL-ETHINYL ESTRADIOL [id number] Maria M Perez MD Start: 02-10-2017 End: 05-02-2017 APRI 0.15-30 MG-MCG TABS cosme e only active pills discard inactive start new pack immediately DESOGESTREL-ETHINYL ESTRADIOL [id number] Maria M Perez MD Start: 02-10-2017 APRI 0.15-30 M G-MCG TABS take only active pills discard inactive start new pack immediately DESOGESTREL-ETHINYL ESTRADIOL [id number] Maria M Perez MD docusate sodium 100 mg oral capsule (10 sources) Start: 06-26-2017 End: 07-18-2017 take 1 capsule by mouth once daily Docusate Sodium (Stool Softener) 100 mg capsule Discontinued 100 mg PO daily June 26, 2017 1:00am July 18, 2017 10:23am ELDERBERRY FRUIT (6 sources) Start: 09-09-2022 End: 08-11-2023 Elderberry Fruit 50 mg/5 mL syrup Discontinued mg PO September 09, 2022 12:00am August 11, 2023 2:59pm Start: 09-09-2022 End: 08-11-2023 Elderberry Fruit Discontinue d MG PO September 09, 2022 12:00am August 11, 2023 2:59pm Start: 09-09-2022 Elderberry Fru it Active MG PO September 08, 2022 11:00pm Start: 09-09-2022 Elderberry Fru it Active MG PO September 09, 2022 12:00am 168 hr estradiol 0.29468 mg/hr transdermal system (20 sources) Estrogen Start: 03-01-2021 End: 10-21-2024 Estradiol 0.0375 mg/24 hr patch weekly Discontinued 1 NMA TD EVERY WEEK 06 10October 21, 2024 8:27am October 21, 2024 5:27pm Start: 03-01-2021 End: 08-08-2023 apply 1 dose transdermal route every week Estradiol Discontinued 1 PATCH TD EVERY WEEK November 12, 2021 5:44pm May 27, 2022 10:15am Start: 01-30-2021 End: 03-01-2021 Estradiol (Climara) 0.06 mg/ 24 hr patch weekly Discontinued 1 NMA TD EVERY WEEK 10 09January 30, 2021 12:00am March 01, 2021 4:42pm Start: 01-30-2021 End: 03-01-2021 Estradiol (Climara) 0.06 mg/ 24 hr patch weekly Discontinued 1 PATCH TD EVERY WEEK January 30, 2021 12:00am March 01, 2021 4:42pm fluconazole 150 mg oral tablet (20 sources) Azole Antifungal Start: 12-21-2018 End: 04-12-2019 take 1 tablet by mouth once Fluconazole (Diflucan) 150 mg tablet Discontinued 150 mg PO ONCE 1 0 December 21, 2018 12:00am April 12, 2019 9:38am Start: 07-17-2018 End: 08-03-2018 Fluconazole 150 mg tablet Di scontinued 150 mg PO .COMPLEX 2 0 July 17, 2018 1:00am August 03, 2018 11:27am 150 mg PO take one po now and repeat in 3 days Start: 04-01-2018 End: 04-06-2018 Fluconazole 150 mg tablet Di scontinued 150 mg PO .COMPLEX 2 0 April 01, 2018 12:00am April 06, 2018 9:42am 150 mg PO take one po now and repeat in 3 days Start: 01-13-2018 End: 03-25-2018 Fluconazole 150 mg tablet Di scontinued 150 mg PO .COMPLEX 2 0 January 19, 2018 12:40pm March 25, 2018 9:08am 150 mg PO take one po now and repeat in 3 days Start: 07-10-2017 End: 07-18-2017 take 1 tablet by mouth once Fluconazole 150 mg tablet Discontinued 150 mg PO ONCE 1 0 July 10, 2017 1:00am July 18, 2017 10:23am ibuprofen 200 mg oral tablet (10 sources) Nonsteroidal Anti-inflammatory Drug Start: 05-16-2020 End: 05-14-2021 Ibuprofen 200 MG tablet Discontinued 200 mg PO NEEDED as needed for Pain/Inflammation May 16, 2020 1:00am May 14, 2021 9:43am lactobacillus rhamnosus gg [id number] unt oral capsule (10 sources) Start: 01-13-2018 End: 04-06-2018 take 10 capsules by mouth once daily Lactobacillus Rhamnosus Gg (Culturelle) 10 billion cell capsule Discontinued 1 NMA PO daily January 13, 2018 12:00am April 06, 2018 9:42am levonorgestrel 0.351554 mg/hr intrauterine system (11 sources) Progestin, Progestin-containing Intrauterine Device Start: 02-10-2017 MIRENA (52 MG) 20 MCG/24HR IUD use as directed LEVONORGESTREL [id number] Maria M Perez MD Start: 02-10-2017 MIRENA (52 MG) 20 MCG/24HR IUD use as directed LEVONORGESTREL [id number] Maria M Perez MD Start: 02-10-2017 MIRENA (52 MG) 20 MCG/24HR IUD use as directed LEVONORGESTREL [id number] Maria M Perez MD metroNIDAZOLE 500 mg oral tablet (10 sources) Nitroimidazole Antimicrobial Start: 03-26-2018 End: 04-06-2018 take 1 tablet by mouth twice daily Metronidazole (Flagyl) 500 mg tablet Discontinued 500 mg PO TWICE A DAY 14 0 March 26, 2018 12:00am April 06, 2018 9:42am naproxen 250 mg oral tablet (20 sources) Nonsteroidal Anti-inflammatory Drug Start: 01-30-2021 End: 05-14-2021 take 250-500 mg by mouth every eight hours as needed for pain Naproxen 250 MG tablet Discontinued 250 - 500 mg PO EVERY 8 HOURS NEEDED as needed for MILD PAIN 30 January 30, 2021 12:00am May 14, 2021 9:43am Start: 06-05-2017 End: 07-18-2017 take 250-500 mg by mouth every eight hours as needed for pain Naproxen 250 MG tablet Discontinued 250 - 500 mg PO EVERY 8 HOURS NEEDED as needed for MILD PAIN 30 June 05, 2017 1:00am July 18, 2017 10:23am norethindrone acetate 5 mg oral tablet (18 sources) Progestin Start: 05-28-2017 End: 06-26-2017 take 1 tablet by mouth once daily Norethindrone Acetate 5 MG tablet Discontinued 5 mg PO DAILY May 28, 2017 1:00am June 26, 2017 1:46pm Start: 05-02-2017 AYGESTIN 5 MG TABS One tablet by mouth twice daily until bleeding stops for 3 days then once daily for remainder NORETHINDRONE ACETATE [id number] Maria M Perez MD [place]-3 Fatty Acids (Fish Oil Concentrate) 1,000 mg capsule (10 sources) Start: 03-25-2018 End: 04-12-2019 take 1 capsule by mouth once daily [place]-3 Fatty Acids (Fish Oil Concentrate) 1,000 mg capsule Discontinued 1000 MG PO DAILY March 25, 2018 9:07am April 12, 2019 9:38am Start: 03-25-2018 End: 04-12-2019 take 1 capsule by mouth once daily [place]-3 Fatty Acids (Fish Oil Concentrate) 1,000 mg capsule Discontinued 1000 mg PO DAILY March 25, 2018 12:00am April 12, 2019 9:38am Start: 03-25-2018 End: 04-12-2019 take 1 capsule by mouth once daily [place]-3 Fatty Acids (Fish Oil Concentrate) 1,000 mg capsule Discontinued 1000 MG PO DAILY March 25, 2018 12:00am April 12, 2019 9:38am Start: 03-25-2018 End: 04-12-2019 take 1 capsule by mouth once daily [place]-3 Fatty Acids (Fish Oil Concentrate) 1,000 mg capsule Discontinued 1000 MG PO DAILY March 24, 2018 11:00pm April 12, 2019 8:38am [place]-3 Fatty Acids-Fish Oil (8 sources) Start: 05-28-2017 End: 06-26-2017 [place]-3 Fatty Acids-Fish Oil Discontinued 1 EACH PO DAILY May 28, 2017 9:25am June 26, 2017 1:45pm Start: 05-28-2017 End: 06-26-2017 [place]-3 Fatty Acids-Fish Oil Discontinued 1 EACH PO DAILY May 28, 2017 1:00am June 26, 2017 1:45pm Start: 05-28-2017 End: 06-26-2017 [place]-3 Fatty Acids-Fish Oil Discontinued 1 EACH PO DAILY May 28, 2017 12:00am June 26, 2017 12:45pm [place]-3 Fatty Acids-Fish Oil 1 EACH capsule (2 sources) Start: 05-28-2017 End: 06-26-2017 [place]-3 Fatty Acids-Fish Oil 1 EACH capsule Discontinued 1 NMA PO DAILY May 28, 2017 1:00am June 26, 2017 1:45pm phentermine hydrochloride 37.5 mg oral tablet (20 sources) Sympathomimetic Amine Anorectic Start: 08-13-2024 End: 11-10-2024 Phentermine (Adipex-P) 37.5 mg tablet Discontinued 18.75 mg PO daily 16 November 10, 2024 8:50am November 10, 2024 8:51am BMI 27 Start: 02-04-2024 End: 08-13-2024 Phentermine (Adipex-P) 37.5 mg tablet Discontinued 18.75 mg PO daily 16 July 19, 2024 11:30am August 13, 2024 1:57pm starting BMI was 27 with comorbidities, current 25 on maintenance Start: 12-18-2023 phentermine 37 .5 mg oral tablet Dose : 18.75 mg = 0.5 tab(s), Oral, qDay, before breakfast, 0 Refill(s), 68.2 Start Date: 12/18/23 Status: Ordered Start: 09-14-2022 End: 02-04-2024 Phentermine (Adipex-P) 37.5 mg tablet Discontinued 18.75 mg PO daily 15 2 February 03, 2024 3:28pm February 04, 2024 7:28am BMI 26 traMADol hydrochloride 50 mg oral tablet (10 sources) Opioid Agonist Start: 07-18-2019 End: 07-21-2019 take 1 tablet by mouth every four hours as needed for pain Tramadol 50 MG tablet Discontinued 50 mg PO EVERY 4 HOURS NEEDED as needed for Pain 16 3 July 18, 2019 1:00am July 20, 2019 1:00am July 21, 2019 1:07am triamcinolone acetonide 5 mg/ml topical cream (10 sources) Corticosteroid Start: 08-03-2018 End: 04-12-2019 Triamcinolone Acetonide 0.5 % cream Discontinued 1 NMA TOPICAL TWICE A DAY 15 2 August 03, 2018 1:00am April 12, 2019 9:38am Turmeric extract (10 sources) Start: 04-06-2018 End: 04-12-2019 turmeric 400 mg capsule Discontinued MG PO April 06, 2018 9:42am April 12, 2019 9:38am Start: 04-06-2018 End: 04-12-2019 Turmeric 400 mg capsule Disc ontinued mg PO 0 April 06, 2018 12:00am April 12, 2019 9:38am Start: 04-06-2018 End: 04-12-2019 Turmeric 400 mg capsule Disc ontinued mg PO April 06, 2018 12:00am April 12, 2019 9:38am Start: 04-06-2018 End: 04-12-2019 turmeric 400 mg capsule Disc ontinued MG PO April 06, 2018 12:00am April 12, 2019 9:38am Start: 04-06-2018 End: 04-12-2019 turmeric 400 mg capsule Disc ontinued MG PO April 05, 2018 11:00pm April 12, 2019 8:38am Problems Active Problems Problem Classification Problem Date Documented Da te Episodic/Chronic Abdominal pain (20 sources) Pain in pelvis; Translations: [Pelvic and perineal pain] 05-14-2021 Episodic Comment on above: Suspect intermittent torsion recommend laparoscopic oophorectomy. 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] 05-27-2022 Episodic Other female genital disorders (10 sources) Abnormal uterine bleeding; Translations: [Abnormal uterine and vaginal bleeding, unspecified] 07-18-2019 Chronic Other female genital disorders (10 sources) Torsion of right ovary; Translations: [Torsion of right ovary and ovarian pedicle] 01-28-2021 Episodic Other gastrointestinal disorders (10 sources) Pelvic mass; Translations: [Intra-abdominal and pelvic swelling, mass and lump, unspecified site] 07-19-2019 Episodic Other nutritional; endocrine; and metabolic disorders (8 sources) Obesity; Translations: [Other obesity] 09-13-2022 Chronic Comment on above: Nutrition plan: Tracey [employer]. 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 control- hystBehavior intervention: recommend daily journal of food intake with electronic methodsExercise plan: cardio 3-4 times weekly, add resistance training 2 days weekly. Other nutritional; endocrine; and metabolic disorders (6 sources) Body mass index 30+ - obesity; Translations: [Body mass index (BMI) 31.0-31.9, adult] 09-13-2022 Chronic Other nutritional; endocrine; and metabolic disorders (2 sources) Body mass index (BMI) 31.0-31.9, adult; Translations: [Body Mass Index 31.0-31.9, adult] 09-09-2022 Chronic Other nutritional; endocrine; and metabolic disorders (4 sources) Other obesity; Translations: [Obesity, unspecified] Onset: 03-18-2025 09-09-2022 Chronic Other nutritional; endocrine; and metabolic disorders (14 sources) Overweight in adulthood with body mass index of 25 or more but less than 30; Translations: [Body mass index (BMI) 28.0-28.9, adult] 01-31-2023 Episodic Comment on above: SW- 169 on 10/07/22; current 156 lb today (05/12)10% weight reduction achieved within nutritional and medication intervention recommendations. next goal 10%.labs from PCP reviewed, done 12/20 Other nutritional; endocrine; and metabolic disorders (2 sources) Body mass index (BMI) 27.0-27.9, adult; Translations: [Body Mass Index 27.0-27.9, adult] Onset: 03-18-2025 05-02-2023 Episodic Residual codes; unclassified (10 sources) History of laparoscopy; Translations: [Other specified postprocedural states] 05-14-2021 Episodic Comment on above: left oophorectomy Residual codes; unclassified (6 sources) Renal cell carcinoma; Translations: [Genetic susceptibility to other malignant neoplasm] 06-09-2020 Episodic Residual codes; unclassified (9 sources) Genetic susceptibility to other malignant neoplasm; Translations: [Genetic susceptibility to other malignant neoplasm] Onset: 03-18-2025 Episodic Comment on above: Positive for gene. H as had hysterectomy. Recommended kidney MRI yearly. Derm appt q1-2 yr. 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 other soft tissue] Onset: 09-20-2024 Past or Other Problems Problem Classification Problem Date Documented Date Episodic/Chronic Other female genital disorders (8 sources) Vaginal irritation; Translations: [Other specified noninflammatory disorders of vagina] Onset: 05-02-2017 05-02-2017 Episodic Other screening for suspected conditions (not mental disorders or infectious disease) (11 sources) Mammography abnormal; Translations: [Other abnormal and inconclusive findings on diagnostic imaging of breast] Onset: 08-13-2024 05-14-2021 Episodic Comment on above: US pending Unclassified (19 sources) Gynecologic examination ; Translations: [Encounter for gynecological examination (general) (routine) with abnormal findings] Onset: 02-10-2017 Resolved: 04-16-2017 02-10-2017 Unclassified (9 sources) meniscus repair 01-27-2022 Unclassified (9 sources) removal of clip 01-27-2022 Results Test Name Value Interpretation Reference Range Facility Office Visit Reporton 2024 Office Visit Report [facility] [address] [place] [address] OFFICE VISIT Date of Service: 02/08/25 MR#: [id number] Acct: [id number] Patient: KYRA JO Rep #: [id number] : 1980 Provider: Dr. Maria M henley MD Age/Sex: 44/F Location: [facility] Status: Signed Intake Vital Signs 11/10/24 08:23 02/08/25 08:28 Height 5 ft 3 in 5 ft 3 in Weight: 158 lb 155 lb 9 oz BMI 28.0 27.5 BP 112/77 110/77 Pulse 68 65 Intake Visit Reasons: 3 F/U Chief Complaint: BP/HR/Weight check Tactical Response Group Officer Required: No Is patient in pain?: No Allergies No Known Allergies Allergy (Verified 02/08/25 08:24) Medications ???Medication ???Instructions ???Recorded ???Confirmed ???Type Allergy Shot 0.25 mg miscellaneous QWEEK 02/08/25 History estradiol 0.0375 mg/24 hr weekly 1 patch transdermal QWEEK #12 ea 0 10/21/24 02/08/25 Rx transdermal patch phentermine 37.5 mg tablet 18.75 mg (1/2 x 37.5 mg) PO QDAY 0 02/11/25 02/11/25 Rx (Adipex-P) #16 tabs Post menopausal: No Patient : No Have you fallen in the past year?: No Nurse's Note: Patient continues to come in for NV every 3 months and is doing well. Questionnaires Weight Management Follow-Up What nutritional plan/diet are you following?: Counting calories How are you tracking your food intake?: Log in book On average, how many days a week are you recording your food intake?: 5 How many days a week are you staying within your recommended intake goals?: 7 What is your current weekly exercise?: walking everyday On a scale of 1-10, how difficult is it to follow your current weight management plan?: 2 What are you struggling most with right now in following your weight loss plan?: exercise/b/c time Are there any changes we need to make to your current plan right now?: no Side Effects: No Chest Pain, No Palpitations, No Increased Heart Rate, No Irregular Heart Rhythm, No Increased Blood Pressure, No Change in breathing patterns, No Kidney Stones, No Change in vision, No Insomnia, No Difficulty with memory/speech, No Numbness in hands/feet, No New onset severe fatigue, No Nausea/vomiting, No Constipation and No Depressed mood Are there any side effects interfering with quality of life enough you would want to stop medication?: No What's improved for you since losing weight and making your lifestyle change?: self confidance Is there anything else we can help you with on your weight loss journey today?: no 02/11/25 1120 Date Maria M Martines Signature: Date (if applicable) CC: Normal [facility] Office Visit Reporton 2024 Office Visit Report [facility] [address] [place] [address] OFFICE VISIT Date of Service: 11/10/24 MR#: [id number] Acct: [id number] Patient: KYRA JO Rep #: [id number] : 1980 Provider: ROB Godinez Age/Sex: 44/F Location: [facility] Status: Signed Intake Vital Signs 08/13/24 12:36 11/10/24 08:23 Height 5 ft 3 in 5 ft 3 in Weight: 156 lb 6 oz 158 lb BMI 27.6 28.0 BP 118/82 H 112/77 Pulse 68 Intake Visit Reasons: 3 M FU Chief Complaint: Weight/BP check Tactical Response Group Officer Required: No Is patient in pain?: No Allergies No Known Allergies Allergy (Verified 11/10/24 08:28) Medications ???Medication ???Instructions ???Recorded ???Confirmed ???Type Allergy Shot 0.25 mg miscellaneous QWEEK 11/10/24 History estradiol 0.0375 mg/24 hr weekly 1 patch transdermal QWEEK #12 ea 0 10/21/24 11/10/24 Rx transdermal patch phentermine 37.5 mg tablet 18.75 mg (1/2 x 37.5 mg) PO QDAY 0 11/10/24 11/10/24 Rx (Adipex-P) #16 tabs Patient : No Have you fallen in the past year?: No Nursing Note HPI: Patient presents today for Weight Managment nurse visit. Reports no issues or concerns. Taking medications compliantly. Would like a 3 month supply. Questionnaires Weight Management Follow-Up What nutritional plan/diet are you following?: self How are you tracking your food intake?: self On average, how many days a week are you recording your food intake?: 4 How many days a week are you staying within your recommended intake goals?: 6 What is your current weekly exercise?: walking On a scale of 1-10, how difficult is it to follow your current weight management plan?: 4 What are you struggling most with right now in following your weight loss plan?: exercise/b/c time Are there any changes we need to make to your current plan right now?: no Side Effects: No Chest Pain, No Palpitations, No Increased Heart Rate, No Irregular Heart Rhythm, No Increased Blood Pressure, No Change in breathing patterns, No Kidney Stones, No Change in vision, No Insomnia, No Difficulty with memory/speech, No Numbness in hands/feet, No New onset severe fatigue, No Nausea/vomiting, No Constipation and No Depressed mood Are there any side effects interfering with quality of life enough you would want to stop medication?: No What's improved for you since losing weight and making your lifestyle change?: self confidance Is there anything else we can help you with on your weight loss journey today?: no 11/10/24 0852 Date Bren Shaffer REFRIGERATING ENGINEER HEAD-C Cosigner Signature: Date (if applicable) CC: Normal [facility] MR ABDOMEN W/+W/Oon 09-23-19 MR ABDOMEN W/+W/O EXAMINATION: MR NAINA MEN W/+W/O 09/20/2024 09:23 AM CLINICAL HISTORY: Neoplasm suspected ASSOCIATED DIAGNOSIS: 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 Multiplanar, multislice MR imaging of the abdomen was performed with and without intravenous contrast. INTRA-PROCEDURE MEDS: Gadoterate Meglumine (DOTAREM) 10 MMOL/20ML solution 15 mL Route: Intravenous Push FINDINGS: Respiratory motion artifact: Grade 1: No artifact Liver parenchyma: There is no evidence for hepatic steatosis. There is no surface nodularity or fibrotic change to suggest cirrhosis. Liver focal lesions: There are no suspicious lesions. 5 mm simple/benign cyst right hepatic lobe (Series 13, Image 10). Hepatic vasculature: The portal vein is patent. Bile ducts: The common bile duct, common hepatic duct, and major intrahepatic biliary duct radicles are within normal limits. There is no evidence for contour abnormality or filling defect The common bile duct measures up to 8 mm in diameter. Gallbladder: Unremarkable Pancreas: The pancreatic duct is normal in course and caliber. There are no cystic or solid pancreatic masses appreciated. Spleen: Unremarkable Adrenal glands: Unremarkable Kidneys: No cystic or solid renal mass identified. Abdominal vasculature: Unremarkable Peritoneum and retroperitoneum: No significant volume of free fluid Lymph nodes: No abdominal lymphadenopathy is evident. Visualized musculoskeletal structures: No acute fracture or destructive osseous lesion is identified Included images of the lower thorax: No focal lung consolidation or pleural effusion. IMPRESSION: No suspicious lesions in the abdomen identified. MACRO: None Normal [facility] [employer] [facility] BASIC METABOLIC PANELon 08-01 BUN/CREATININE RATIO SEE NOTE: Normal - [facility] Comment on above: Result Comment: Not Reported: BUN and Creatinine are within reference range. Performed By: #### 1 0165, 7600 #### [facility] [address], [address] [place] [address] Business Mail Entry Clerk: Kyle Odom MD Calcium [Mass/Vol] 9.6 mg/dL Normal 8.6-10.2 [facility] Comment on above: Performed By: #### 1 0165, 7600 #### [facility] [place] [address] Business Mail Entry Clerk: Kyle Odom MD Chloride [Moles/Vol] 104 mmol/L Normal 98-110 [facility] Comment on above: Performed By: #### 1 0165, 7600 #### [facility] [place] [address] Business Mail Entry Clerk: Kyle Odom MD CO2 [Moles/Vol] 29 mmol/L Normal 20-32 [facility] Comment on above: Performed By: #### 1 0165, 7600 #### [facility] [place] [address] Business Mail Entry Clerk: Kyle Odom MD Creatinine [Mass/Vol] 0.70 mg/dL Normal 0.50-0.99 [facility] Comment on above: Performed By: #### 1 0165, 7600 #### [facility] [place] [address] Business Mail Entry Clerk: Kyle Odom MD GFR/1.73 sq M.predicted among non-blacks MDRD (S/P/Bld) [Vol rate/Area] 110 mL/min/{1.73_m2} Normal > OR = 60 [facility] Comment on above: Performed By: #### 1 0165, 7600 #### [facility] of [address], [address] [place] [address] Business Mail Entry Clerk: Kyle Odom MD Glucose [Mass/Vol] 91 mg/dL Normal 65-99 [facility] Comment on above: Result Comment: Fasting reference interval Performed By: #### 1 0165, 7600 #### [facility] of [address], [address] [place] [address] Business Mail Entry Clerk: Kyle Odom MD Potassium [Moles/Vol] 4.1 mmol/L Normal 3.5-5.3 [facility] Comment on above: Performed By: #### 1 0165, 7600 #### [facility] of [address], [address] [place] [address] Business Mail Entry Clerk: Kyle Odom MD Sodium [Moles/Vol] 141 mmol/L Normal 135-146 [facility] Comment on above: Performed By: #### 1 0165, 7600 #### [facility] of [address], [address] [place] [address] Business Mail Entry Clerk: Kyle Odom MD Urea nitrogen [Mass/Vol] 16 mg/dL Normal 7-25 [facility] Comment on above: Performed By: #### 1 0165, 7600 #### [facility] [place] [address] Business Mail Entry Clerk: Kyle Odom MD LIPID PANEL, [facility] 08-01 Cholesterol [Mass/Vol] 194 mg/dL Normal <200 [facility] Comment on above: Order Comment: 0; FA STING FASTING:YES FASTING: YES Performed By: #### 1 0165, 7600 #### [facility] of [address], [address] [place] [address] Business Mail Entry Clerk: Kyle Odom MD Cholesterol in HDL [Mass/Vol] 81 mg/dL Normal > OR = 50 [facility] Comment on above: Order Comment: 0; FA STING FASTING:YES FASTING: YES Performed By: #### 1 0165, 7600 #### [facility] of [address], [address] [place], [place] [address] Business Mail Entry Clerk: Kyle Odom MD Cholesterol in LDL [Mass/Vol] 100 mg/dL High [facility] Comment on above: Order Comment: 0; FA STING FASTING:YES FASTING: YES Result Comment: Refe rence range: <100 Desirable range <100 mg/dL for primary prevention; <70 mg/dL for patients with CHD or diabetic patients with > or = 2 CHD risk factors. LDL-C is now calculated using the Mirian calculation, which is a validated novel method providing better accuracy than the Friedewald equation in the estimation of LDL-C. Jesus LOW et al. STEPHANIE. 2013;310(19): 4532-0081 (http://education.SteelCloud.Baileyu/faq/JUN548) Performed By: #### 1 0165, 2820 #### [facility] [address], [address] [place] [address] Business Mail Entry Clerk: Kyle Odom MD Cholesterol.total/C holesterol in HDL [Mass ratio] 2.4 {ratio} Normal <5.0 [facility] Comment on above: Order Comment: 0; FA STING FASTING:YES FASTING: YES Performed By: #### 1 0165, 0140 #### [facility] [place] [address] Business Mail Entry Clerk: Kyle Odom MD NON HDL CHOLESTEROL 113 mg/dL (calc) Normal <130 [facility] Comment on above: Order Comment: 0; FA STING FASTING:YES FASTING: YES Result Comment: For patients with diabetes plus 1 major ASCVD risk factor, treating to a non-HDL-C goal of <100 mg/dL (LDL-C of <70 mg/dL) is considered a therapeutic option. Performed By: #### 1 0165, 7600 #### [facility] [address], [address] [place] [address] Business Mail Entry Clerk: Kyle Odom MD Triglyceride [Mass/Vol] 45 mg/dL Normal <150 [facility] Comment on above: Order Comment: 0; FA STING FASTING:YES FASTING: YES Performed By: #### 1 0165, 7600 #### [facility] [address], [address] [place] [address] Business Mail Entry Clerk: Kyle Odom MD Core Shaper Office Visit Reporton 08-13-2024 Core Shaper Office Visit Report [facility] [address] [place] [address], [address] [place] [address] OFFICE VISIT Date of Service: 08/13/24 MR#: [id number] Acct: [id number] Name: KYRA JO Rep #: [id number] : 1980 Provider: Dr. 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) Tactical Response Group Officer Required: No Is patient in pain?: No Feel stressed/tense/nervous/ anxious/difficulty sleeping: not at all Allergies No Known Allergies Allergy (Verified 08/13/24 12:38) Medications ???Medication ???Instructions ???Recorded ???Confirmed ???Type Allergy Shot 0.25 mg miscellaneous QWEEK 08/13/24 History estradiol 0.0375 mg/24 hr weekly 1 patch transdermal QWEEK #12 ea 0 08/13/24 08/13/24 Rx transdermal patch phentermine 37.5 mg tablet 18.75 mg (1/2 x 37.5 mg) PO QDAY 0 08/13/24 08/13/24 Rx (Adipex-P) #16 tabs Is last menstrual period known: No Post menopausal: No Patient : No : No PFSH Medical History (Updated 08/13/24 @ 12:[address] 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 Date Name GA/Weeks Outcome Route Bth Weight Infant Gen Labor Lgth Anesthesia Del Locatn Provider FOB Unknown Lacie Female Unknown 2005 Aurelio Male HPI Encounter for routine gynecological examination Details: KYRA JO is a 44 year old who presents for annual exam. Last PAP: Hysterectomy History of abnormal PAP: Last mammogram: 06/21/24 - normal History of abnormal mammogram: Colon cancer screening: not due Other preventative health care screenings: PCP is Dr. Ball - PCP orders labs, will be getting labs done on 07/23 ROS Const Constitutional: Reports as per HPI; Denies fatigue, increased appetite, poor appetite, weight gain or weight loss Cardio Card: Denies chest pain Resp Resp: Denies cough or dyspnea GI GI: Reports as per HPI; Denies abdominal pain, bloating, constipation, nausea or vomiting : Reports as per HPI and other; Denies difficulty voiding, dysuria, hematuria, nipple discharge, pelvic pain, prolapse symptoms, urinary frequency, urinary incontinence, urinary urgency, vaginal discharge, vaginal dryness, vaginal odor or vaginal pruritus Skin Skin/Breast: Denies changing lesions, breast mass, breast pain, breast skin changes or nipple discharge Psych Psych: Denies anxiety or depression Exam Const General: cooperative, healthy appearing, comfortable, no acute distress, well developed and well groomed HENMT Head: normal to inspection and normocephalic Ears: hearing grossly normal bilaterally and external ears normal Nose: external nose normal Face and sinus: normal facial exam Neck Neck: normal visual inspection, full ROM and no lymphadenopathy Thyroid: thyroid normal Chest Chest palpation inspection: normal inspection of the chest Breast inspection: normal inspection of the breasts and normal inspection of the axillae Breast palpation: normal palpation of the breasts, normal palpation of the axillae and no axillary lymphadenopathy Resp Effort Inspection: normal respiratory effort GI Inspection: normal to inspection and non-distended Palpation: soft, no hepatosplenomegaly and no guarding General: bladder normal to palpation (more content not included)... Normal [facility] SCRN MAMM (CAD)W/DORIS BILATo n 06-21-2024 SCRN MAMM (CAD)W/DORIS BILAT [facility] Imaging Services [address] [place] [id number] SCRN MAMM (CAD)W/DORIS BILAT MR#: [id number] Acct: [id number] Name: KYRA JO Rep #: [id number] : 1980 F 43 From: Ildefonso Dumont MD PCP: Dr. Yordy Ball MD Status: [facility] Study: SCRN MAMM (CAD)W/DORIS BILAT Date of Exam: 05/31 09/20 Exam# [id number] Ordering Dr: aMria M Perez [id number] MAMMOGRAPHY - BILATERAL SCREENING 3-D TOMOSYNTHESIS REASON FOR EXAM: Female, 43 years old. screening PERTINENT HISTORY: No significant family history. TECHNIQUE: 2-D mammograms and 3-D Tomosynthesis of the breast (s) were performed. CAD was performed. COMPARISON: 06/19/2023 FINDINGS: The breast composition is composed of scattered fibroglandular density. Scattered benign calcifications are seen. No dense spiculated masses or suspicious microcalcifications are identified. No architectural distortion is identified. There is no skin thickening or retraction. There has been no significant change since the prior study. BI/SCRN MAMM (CAD)W/DORIS BILAT IMPRESSION: No mammographic signs of malignancy. Routine yearly mammograms recommended. ASSESSMENT CATEGORY: BIRADS Category 1: Negative. A letter regarding these results will be sent to the patient by the facility within 30 days. FOLLOW UP RECOMMENDATION: Yearly follow up mammogram recommended. (A) Approximately 10% of breast cancers are not detected by mammography. A normal mammogram should not delay biopsy of a clinically suspicious abnormality. Electronically Signed: Ildefonso Dumont MD at 17:39 EST , CC: Dr. Yordy Ball MD; Dr. Maria M Perez MD Pest Control Worker Helper: Signed Normal [facility] Office Visit Reporton 2023 Office Visit Report [facility] [address] [place] [address] OFFICE VISIT Date of Service: 05/12/24 MR#: [id number] Acct: [id number] Patient: KYRA JO Rep #: [id number] : 1980 Provider: ROB hernandez Age/Sex: 43/F Location: [facility] Status: Signed Intake Vital Signs 10/31/23 09:02 02/03/24 09:04 05/12/24 08:43 Height 5 ft 3 in 5 ft 3 in 5 ft 3 in Weight: 152 lb 8 oz 153 lb 156 lb BMI 27.0 27.1 27.6 BP 112/83 H 111/70 105/69 Pulse 72 76 73 Pulse Source Monitor Intake Visit Reasons: 3 M FU Chief Complaint: Weight/BP check Tactical Response Group Officer Required: No Is patient in pain?: No Allergies No Known Allergies Allergy (Verified 05/12/24 08:45) Medications ???Medication ???Instructions ???Recorded ???Confirmed ???Type Allergy Shot 0.25 mg miscellaneous QWEEK 05/16/20 05/12/24 History estradiol 0.0375 mg/24 hr weekly 1 patch transdermal QWEEK #12 ea 08/08/23 05/12/24 Rx transdermal patch phentermine 37.5 mg tablet 18.75 mg (1/2 x 37.5 mg) PO QDAY 05/12/24 05/12/24 Rx (Adipex-P) #16 tabs Questionnaires Weight Management Follow-Up What nutritional plan/diet are you following?: Own How are you tracking your food intake?: Myself On average, how many days a week are you recording your food intake?: 3 How many days a week are you staying within your recommended intake goals?: 6 What is your current weekly exercise?: Weights and cardio On a scale of 1-10, how difficult is it to follow your current weight management plan?: 1 What are you struggling most with right now in following your weight loss plan?: No struggle Are there any changes we need to make to your current plan right now?: No Side Effects: No Chest Pain, No Palpitations, No Increased Heart Rate, No Irregular Heart Rhythm, No Increased Blood Pressure, No Change in breathing patterns, No Kidney Stones, No Change in vision, No Insomnia, No Difficulty with memory/speech, No Numbness in hands/feet, No New onset severe fatigue, No Nausea/vomiting, No Constipation and No Depressed mood Are there any side effects interfering with quality of life enough you would want to stop medication?: No What's improved for you since losing weight and making your lifestyle change?: How I feel Is there anything else we can help you with on your weight loss journey today?: No 05/12/24 1253 Date Kelly Huertas NP REFRIGERATING ENGINEER HEAD-C 05/12/24 1410 [facility] Signature: Date (if applicable) Bren Shaffer REFRIGERATING ENGINEER HEAD-C CC: Normal [facility] XR ANKLE AND FOOT 6 VIEWS LE [facility] 12-18-2023 XR ANKLE AND FOOT 6 VIEWS LEFT ORIGINAL EXAMINATION: 6XRAY VIEWS OF THE ANKLE AND FOOT LEFT 12/18/2023 4:51 pm COMPARISON: None. HISTORY: ORDERING SYSTEM PROVIDED HISTORY: Reason for Exam: pain FINDINGS: Well corticated ossicle inferior to the lateral malleolus, likely from remote trauma. No acute fracture or dislocation. The ankle mortise and talar dome are intact. No significant degenerative changes. No significant tibiotalar joint effusion. IMPRESSION: Well corticated ossicle inferior to the lateral malleolus is most likely from remote trauma. Although correlate with point tenderness. No definitive acute osseous abnormality. I have personally reviewed the images of this examination and agree with the resident's findings and interpretations. Interpreted by: Stanley James MD Preliminary Report By: Reynaldo Genao Electronically signed By Stanley James MD Dictated Date: 12/18/2023 4:57:18 PM Prelim Date: 12/18/2023 5:03:16 PM Sign Date: 12/18/2023 5:25:07 PM Ordering Provider: JOHNNY CHANG [facility] ([place]) Throat specimen bacteria cindy ntification by cultureOrdered By: Dr. Chapin on 05-15-2022 Bacteria identified Cx Nom (Throat) streptococcus isolated. [facility] Basophil percentageon 2021 Creatinine [Mass/Vol] 0.6 mg/dL 0.55-1.02 [facility] Work Phone: No Panel Informationon 10-01 Bedside Estimated GFR (eGFR) > 60.0000 mL/min >60 [facility] Work Phone: Wanda 07-19-2019 CNPTOUTREACH Patient Outreach ([facility]) KYRA JO ([id number]) 1980 F Date Time Provider Department 07/19/19 MELLISA SALOMON) REBECCA During your visit today, we recorded the following information about you: Mellisa Salomon LPN 07/19/2019 11:08 AM Signed ED Follow Up: Patient discharged from [facility] ED on 07/19/2019. Outreach # 1, CONTACT NOT MADE Patient was called at this time to follow up after recent ED visit. Unable to reach the patient by phone. Message left for a return call to office to see if patient would like to schedule a follow up appt with PCP or if they are following up with another provider. Waiting on return call to office. Mellisa Salomon LPN 07/19/2019 11:07 AM [facility] Medical Records Department [address] [address] Emergency Department Summary 07/19/19 0919 MR#: [id number] Acct: [id number] Name: KYRA JO Rep #: [id number] : 1980 39 From: Guillermo Rojo MD PCP: Care Physician, No Primary Status: REG ER History of Present Illness Chief Complaint: Abd Pain Informant: Patient, Significant Other Onset: Days - Onset July 17 Context: Sudden Onset Timing: Continuous Quality: Pain Location: Right lower quadrant Current Severity: Moderate Maximum Severity: Severe Worsened by: Movement, walking Relieved by: Nothing Associated Symptoms: Nausea and anorexia Narrative: Patient is a 39-year-old woman seen on Friday and scheduled for outpatient ultrasound. She presents because of worsening pain. She reports nausea and has no appetite. Since Friday she has had 6 crackers. She was prescribed tramadol. She states the tramadol did not diminish the symptoms. She had a oxycodone from prior surgery, 1 year ago, that she took. She still complained of significant pain. She has a pressure sensation when she urinates. She had a CT of the abdomen on Friday which revealed a 4 cm pelvic mass. She is status post x2, hysterectomy and appendectomy. She states her right and left ovary were not removed. The hysterectomy was performed by Dr. 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 Has had hysterectomy. Recommended kidney MRI yearly. Derm appt q1-2 yr. Past Medical History - Allergies and Home Meds Allergies/Adverse Reactions: Allergies No Known Allergies Allergy (Verified 07/19/19 09:08) Primary Care Physician: Care Physician,No Primary [Primary Care Provider] - Prior records reviewed: Yes Surgical History: appendectomy, hysterectomy, - - x2 Lives: Spouse/ Significant Other, With Family Smoking Status: Former smoker Alcohol: Rare Drugs: None Review of Systems General: Reports: Fever, Malaise, Subjective. Denies: Chills, Sweats Eyes: Denies: Visual changes - bilaterally, Blurred Vision - bilaterally ENT: Denies: Rhinorrhea, Sore throat Cardiovascular: Denies: Chest pain, Palpitations Respiratory: Denies: Dyspnea, Cough, Dyspnea on exertion Gastrointestinal: Reports: Abdominal pain, Nausea, - - She also complains of anorexia.. Denies: Vomiting, Diarrhea, Constipation, Melena, Hematochezia, - Genitourinary: Reports: - - Ports pressure with urination. Denies: Dysuria, Hematuria, Frequency Musculoskeletal: Denies: Myalgias, Arthralgias, Neck pain, Back pain, Swelling, Extremity Pain, -, - Skin: Denies: Rash, Wounds Neurological: Denies: Headache, Weakness, Numbness Hematologic: Denies: Easy bruising, Easy bleeding Physical Exam Vital Signs/Narrative: Vital Signs 07/19/19 09:09 97.0 F L 83 16 142/77 H 100 Inital Vital Signs reviewed: Yes General: Well nourished, Well developed, Acute Distress, - - Peers uncomfortable and pale. Head: Normocephalic, Atraumatic Eyes: Perrl, EOMI, Pale conjunctiva - Possible pallor on the conjunctivo-. Negative for: Scleral icterus ENT: No rhinorrhea. Negative for: Nasal congestion Neck: Supple, Nontender, No lymphadenopathy, No JVD Cardiovascular: Regular rate, Regular rhythm, No murmurs, Normal S1, Normal S2 Respiratory: No distress, CTA bilaterally, Chest nontender Abdomen: Soft, Nondistended, No masses, Tender, Guarding, Rebound tenderness, Hypoactive bowel sounds. Negative for: Mass, Pulsatile mass, Ventral hernia, Inguinal hernia, Umbilical hernia Back: Nontender, Normal Inspection Extremities: Nontender, No edema Skin: No rash, Pallor Neurological: Alert, Oriented x3, Cranial nerves II-XII grossly intact, Normal Strength, Normal Sensation Psychological: Normal affect, Normal Mood Diagnostic/Tx/Re-eval 07/19/19 09:17 Transvaginal Non- [US] Stat Laboratory Results - Medical Decision Making With history of 4 cm pelvic mass abrupt onset of pain need to evaluate for ovarian torsion. Patient was made n.p.o. CBC was obtained. Abdominal exam is remarkable for peritonitis. Since she had a CAT scan on Friday pelvic exam was not performed at this time. Will call her medical office assistant instructor because of concern for torsion. Keep a call from the cvt tech. She states Dr. Montes looked at the images. The right ovary is 10 cm in size. There is a 4 cm mass on the ovary and there is no flow. In light of this Dr. Maria M Perez was contacted. He was made aware patient's history, physical findings and CBC results. She requested patient have a type and screen. She will call OR. ED Disposition - Plan for ED Patient: Disposition: [facility] Diagnosis: Torsion of right ovary Referrals: Care Physician,No Primary [Primary Care Provider] - What to do if you have Problems For any increased pain, shortness of breath, bleeding, nausea or vomiting, chest pain, or any unexpected problems, contact your Primary Care Provider. Call [facility] ([phone]) or report to the closest Emergency Room. Call 911 if necessary. 07/19/19 1030 Date Guillermo Rojo MD Cosigner Signature (If Indicated): Date CC: No Primary Care Physician; Maria M Perez MD Performed By: MONICA Allergies As of Date: 07/19/2019 (No Known Allergies) Date Reviewed: 04/23/2019 Reviewed by: Thiago Hernandez - Fully Assessed Reason for Visit: Transition Of Care [1494] Cmt: ED Patient Outreach [facility] 07/19/19 Prescriptions as of 07/19/2019 Sig: CEFDINIR 300 MG CAPSULE Problem List As Of Date 07/19/2019 Noted Resolved Family history of malignant neoplasm of breast *09/30/2006 08/07/2011 Mitten[place]chmerz [N94.0] 09/30/2006 08/07/2011 ENDOMETRIOSIS NOS [N80.9] 08/11/2007 Unspecified symptom associated with female courtney*08/11/2007 08/07/2011 Dysmenorrhea [N94.6] 08/11/2007 07/18/2016 Dyspareunia [EYF4074] 08/11/2007 11/26/2017 Abdominal pain, right lower quadrant [R10.31] 08/11/2007 08/07/2011 Abdominal pain, left lower quadrant [R10.32] 08/11/2007 08/07/2011 Excessive or frequent menstruation [N92.0] 08/11/2007 08/07/2011 Mastodynia [N64.4] 07/27/2009 11/26/2017 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 Hereditary leiomyomatosis and renal cell cancer*10/26/2018 More... Lung nodules [R91.8] 04/23/2019 Encounter Status:Closed by MELLISA SALOMON LPN on 07/19/19 [facility] PROGRESSon 07-19-2019 PROGRESS HNO ID: [id number] Author: Mellisa Salomon Service: ? Author Type: LICENSED NURSE Type: Progress Notes Filed: 07/19/2019 11:08 AM Note Text: ED Follow Up: Patient discharged from [facility] ED on 07/19/2019. Outreach # 1, CONTACT NOT MADE Patient was called at this time to follow up after recent ED visit. Unable to reach the patient by phone. Message left for a return call to office to see if patient would like to schedule a follow up appt with PCP or if they are following up with another provider. Waiting on return call to office. Mellisa Salomon LPN 07/19/2019 11:07 AM [facility] Medical Records Department [address] [place] [id number] Emergency Department Summary 07/19/19 0919 MR#: [id number] Acct: [id number] Name: KYRA JO Rep #: [id number] : 1980 39 From: Guillermo Rojo MD PCP: Care Physician, No Primary Status: REG ER History of Present Illness Chief Complaint: Abd Pain Informant: Patient, Significant Other Onset: Days - Onset July 17 Context: Sudden Onset Timing: Continuous Quality: Pain Location: Right lower quadrant Current Severity: Moderate Maximum Severity: Severe Worsened by: Movement, walking Relieved by: Nothing Associated Symptoms: Nausea and anorexia Narrative: Patient is a 39-year-old woman seen on Friday and scheduled for outpatient ultrasound. She presents because of worsening pain. She reports nausea and has no appetite. Since Friday she has had 6 crackers. She was prescribed tramadol. She states the tramadol did not diminish the symptoms. She had a oxycodone from prior surgery, 1 year ago, that she took. She still complained of significant pain. She has a pressure sensation when she urinates. She had a CT of the abdomen on Friday which revealed a 4 cm pelvic mass. She is status post x2, hysterectomy and appendectomy. She states her right and left ovary were not removed. The hysterectomy was performed by Dr. 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 Has had hysterectomy. Recommended kidney MRI yearly. Derm appt q1-2 yr. Past Medical History - Allergies and Home Meds Allergies/Adverse Reactions: Allergies No Known Allergies Allergy (Verified 07/19/19 09:08) Primary Care Physician: Care Physician,No Primary [Primary Care Provider] - Prior records reviewed: Yes Surgical History: appendectomy, hysterectomy, - - x2 Lives: Spouse/ Significant Other, With Family Smoking Status: Former smoker Alcohol: Rare Drugs: None Review of Systems General: Reports: Fever, Malaise, Subjective. Denies: Chills, Sweats Eyes: Denies: Visual changes - bilaterally, Blurred Vision - bilaterally ENT: Denies: Rhinorrhea, Sore throat Cardiovascular: Denies: Chest pain, Palpitations Respiratory: Denies: Dyspnea, Cough, Dyspnea on exertion Gastrointestinal: Reports: Abdominal pain, Nausea, - - She also complains of anorexia.. Denies: Vomiting, Diarrhea, Constipation, Melena, Hematochezia, - Genitourinary: Reports: - - Ports pressure with urination. Denies: Dysuria, Hematuria, Frequency Musculoskeletal: Denies: Myalgias, Arthralgias, Neck pain, Back pain, Swelling, Extremity Pain, -, - Skin: Denies: Rash, Wounds Neurological: Denies: Headache, Weakness, Numbness Hematologic: Denies: Easy bruising, Easy bleeding Physical Exam Vital Signs/Narrative: Vital Signs 07/19/19 09:09 97.0 F L 83 16 142/77 H 100 Inital Vital Signs reviewed: Yes General: Well nourished, Well developed, Acute Distress, - - Peers uncomfortable and pale. Head: Normocephalic, Atraumatic Eyes: Perrl, EOMI, Pale conjunctiva - Possible pallor on the conjunctivo-. Negative for: Scleral icterus ENT: No rhinorrhea. Negative for: Nasal congestion Neck: Supple, Nontender, No lymphadenopathy, No JVD Cardiovascular: Regular rate, Regular rhythm, No murmurs, Normal S1, Normal S2 Respiratory: No distress, CTA bilaterally, Chest nontender Abdomen: Soft, Nondistended, No masses, Tender, Guarding, Rebound tenderness, Hypoactive bowel sounds. Negative for: Mass, Pulsatile mass, Ventral hernia, Inguinal hernia, Umbilical hernia Back: Nontender, Normal Inspection Extremities: Nontender, No edema Skin: No rash, Pallor Neurological: Alert, Oriented x3, Cranial nerves II-XII grossly intact, Normal Strength, Normal Sensation Psychological: Normal affect, Normal Mood Diagnostic/Tx/Re-eval 07/19/19 09:17 Transvaginal Non- [US] Stat Laboratory Results - Medical Decision Making With history of 4 cm pelvic mass abrupt onset of pain need to evaluate for ovarian torsion. Patient was made n.p.o. CBC was obtained. Abdominal exam is remarkable for peritonitis. Since she had a CAT scan on Friday pelvic exam was not performed at this time. Will call her medical office assistant instructor because of concern for torsion. Keep a call from the cvt tech. She states Dr. Montes looked at the images. The right ovary is 10 cm in size. There is a 4 cm mass on the ovary and there is no flow. In light of this Dr. Maria M Perez was contacted. He was made aware patient's history, physical findings and CBC results. She requested patient have a type and screen. She will call OR. ED Disposition - Plan for ED Patient: Disposition: Acute Care Hospital [facility] Diagnosis: Torsion of right ovary Referrals: Care Physician,No Primary [Primary Care Provider] - What to do if you have Problems For any increased pain, shortness of breath, bleeding, nausea or vomiting, chest pain, or any unexpected problems, contact your Primary Care Provider. Call [facility] ([phone]) or report to the closest Emergency Room. Call 911 if necessary. 07/19/19 1030 Date Guillermo Rojo MD Cosigner Signature (If Indicated): Date CC: No Primary Care Physician; Maria M Perez MD Performed By: NA Normal [facility] Calprotectin, Fecalon 2018 Calprotectin, Comment SEE BELOW Normal [facility] Comment on above: Result Comment: INTE RPRETIVE INFORMATION: INTERPRETIVE INFORMATION: Calprotectin, Fecal <50.0 mg/kg : Normal 50.0-120.0 mg/kg: Borderline. Test should be re-evaluated in 4-6 weeks. >120.0 mg/kg : Abnormal Calprotectin results generated by the FDA-approved QUANTA Lite extended range assay cannot be directly compared to those determined by other methods. For assistance with interpretation of serial testing results in patients with samples submitted prior to April 14, 2018, please contact the laboratory ([phone]) to discuss options. Performing Laboratory: [facility] [employer] [address] [place] [address] Performed By: #### U RIN2 #### [address] [address] Calprotectin, Interp Normal Normal [facility] Comment on above: Performed By: #### U RIN2 #### [address] [address] Protein [Mass/Vol] g/dL Normal <50.0 [facility] Comment on above: Performed By: #### U RIN2 #### [address] [address] H. pylori Ag, Stoolon 2018 H. pylori Ag, Stool SEE BELOW [facility] Comment on above: Result Comment: Hpyl lukas Ag EIA Stool Specimen Desc: Stool Sp. Request/Comment: Specimen received in sterile container. Test Result Negative for Helicobacter pylori Antigen by EIA. Report Status FINAL [id number] Performing Laboratory: [facility] [employer] [address] [place] [address] Performed By: #### U RIN2 #### [address] [address] Fecal Occult Bloodon 019 Fecal Occult Blood Negative Normal NEGATIVE [facility] Comment on above: Performed By: #### U RIN2 #### [facility] [address] [id number] CNOVon 04-23-2019 CNOV Office Visit ([facility] ) KYRA JO ([id number]) 1980 F Date Time Provider Department 04/23/19 9:[address] [facility] During your visit today, we recorded the following information about you: Temperature Pulse Respiration Blood pressure 98 degrees 60/minute 20/minute 115/78 Weight Height 79.2 kg 1.6 m Thiago Hernandez MD 04/23/2019 10:07 AM Signed Pulmonary Established Visit PATIENT NAME: Kyra Jo SERVICE DATE: 04/23/2019 CHIEF COMPLAINT: Pulmonary nodule ? HISTORY OF PRESENT ILLNESS: Kyra Jo is a 38 year old white woman with a past medical history significant for problems listed below seen in the office today for the above reason. She was seen by me in August and was asked to get a CT chest in Feb. She had it done and is here for follow up. Since the last visit, she denies any new symptoms. She denies any unintentional weight loss or loss of appetite or fevers or chills or any cardiopulmonary symptoms. ? She denies any cardio-pulmonary symptoms with usual activities. She denies any unexplained fevers or chills or weight loss or loss of appetite. ? SH: Lives with and two kids; has a dog at home; no birds; no known TB exposure; no mold at home ? 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 and is on chemo; no other family history of cancers 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 - Pulmonary nodules - Sinus tachycardia DURING ACTIVE PROBLEM LIST Endometriosis, Site Unspecified Tietze's Disease Family history of malignant neoplasm of breast- mother Seasonal Allergic Rhinitis Basal cell carcinoma- left ear status post hysterectomy - ovaries spared Incidental Lung Nodule, Greater Than Or Equal to 8mm Intestinal Hernia Obesity, Class I, Bmi 30-34.9 Solitary Pulmonary Nodule Ex-Smoker 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) PAST SURGICAL HISTORY Procedure Laterality Date - APPENDECTOMY Right 08/19/2018 - ARTHROTOMY,OPEN REPAIR MENISCUS Left knee - DELIVERY ONLY 04-09-2004 , low cervical/ - DELIVERY ONLY 05/10/2005 , low cervical/bto - HYSTERECTOMY 05/2017 partial - HYSTERECTOMY HX - LIGATE FALLOPIAN TUBE 05/10/2005 Tubal ligation - LOW SKIN FACE EAR HND + 25SQ Left 2017 graft ear removal basal cell CA - MENISCAL REPAIR SYS,CD,[id number] 11/29/2015 Social History Socioeconomic History Marital status: Spouse name: SUELLEN JO Number of children: 2 Years of education: 14 Highest education level: Not on file Occupational History 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 Social Needs Financial resource strain: Not on file Food insecurity: Worry: Not on file Inability: Not on file Transportation needs: Medical: Not on file Non-medical: Not on file Tobacco Use Smoking status: Former Smoker Packs/day: 0.50 Years: 10.00 Pack years: 5 Types: Cigarettes Quit date: 2010 Years since quittin.8 Smokeless tobacco: Former User Quit date: 02/17/2012 Substance and Sexual Activity Alcohol use: Yes Comment: Rarely Drug use: No Sexual activity: Yes Partners: Male control/protection: Tubal Ligation, IUD Lifestyle Physical activity: Days per week: Not on file Minutes per session: Not on file Stress: Not on file Relationships Social connections: Talks on phone: Not on file Gets together: Not on file Attends episcopal service: Not on file Active member of club or organization: Not on file Attends meetings of clubs or organizations: Not on file Relationship status: Not on file Intimate partner violence: Fear of current or ex partner: Not on file Emotionally abused: Not on file Physically abused: Not on file Forced sexual activity: Not on file Other Topics Concerns: Service: Not Asked Blood Transfusions: Not Asked Caffeine Concern: Not Asked none reported Occupational Exposure: Not Asked Hobby Hazards: Not Asked Sleep Concern: Not Asked Stress Concern: Not Asked Weight Concern: Not Asked Special Diet: Not Asked Good diet Back Care: Not Asked Exercise: Yes Exercises 2-3 days/wk Bike Helmet: Not Asked Seat Belt: Not Asked Self-Exams: Not Asked Social History Narrative Not on file CURRENT OUTPATIENT MEDICATIONS: Current Outpatient Medications Medication Sig Dispense Refill - cefdinir (OMNICEF) 300 mg capsule No current facility-administered medications for this visit. ALLERGIES: ALLERGIES No Known Allergies REVIEW OF SYSTEMS: 10 systems reviewed and negative otherwise. PHYSICAL EXAM: BP 115/78 Pulse 60 Temp (Src) 98 (Oral) Resp 20 Ht 5' 2.992 (1.60m) Wt 174 lb 11.2 oz (79.2kg) SpO2 99[RA]% LMP 10/09/2012 BMI 30.95 kg/(m2). General appearance: Well appearing, alert, in no acute distress, well-hydrated, well nourished. HENT: External ears normal Eyes: no scleral icterus, PERRLA, EOMS, no conjunctivitis Nose/Sinuses: Nares normal. Septum midline. Mucosa normal. No drainage or sinus tenderness. Oropharynx: Lips, mucosa, and tongue normal, teeth and gums normal, oropharynx normal [place] Classification:Class I Respiratory: Lungs clear to auscultation. No wheezing, rhonchi, rales Cardiovascular: RRR without murmur, gallop, or rubs. No ectopy Ext: no pedal edema or cyanosis or clubbing. DATA: Diagnostic tests reviewed for today's visit, imaging was personally reviewed by me: CT chest 02/2019: 1. ?Stable to slightly decreased in size 6 mm left pericardiophrenic angle nodule, possibly small lymph node. 2. ?Few additional scattered subcentimeter pulmonary nodules also stable. CT chest 08/2018: 1. ?7 mm pulmonary nodule at the cardiophrenic angle within the lingula. ?Given that this abuts the heart border percutaneous sampling would prove difficult. ?Recommend continued follow-up as detailed and the recommendations below or alternatively PET/CT. 2. ?Otherwise no acute process in the chest. ? CT abdo/ pelvis 07/2018: Left lower quadrant internal hernia with tapering of afferent and efferent segments of proximal and distal sigmoid colon at the hernia neck. ?While there is slight twisting of bowel and mesentery in this region concerning for an incomplete or partial volvulus, mild gaseous distention of the herniated mid sigmoid colon, and a moderate amount of formed stool throughout the more proximal colon implying some degree of chronic partial obstruction, there is no high-grade bowel obstruction or evidence of any complete acute volvulus per se at this time. Surgical consultation recommended, the timing of which should obviously take into account current clinical symptoms. ?Discussed with Dr. Sullivan at 8:42 pm on 08/14/[address] Elizondo. Pulmonary nodule. Incidental Finding: ?Follow-up for this incidentally detected lung nodule with PET/CT within [address] exam in 3 months is recommended. Migrated surgical clip abuts the cecum and appendix. ? ASSESSMENT: Kyra Jo is a 38 year old white woman with a past medical history significant for the above listed problems seen in the office today for evaluation of incidentally noted pulmonary nodule. ? 1. LLL 7 mm nodule and few other sub-centimeter pulmonary nodules; all stable on the scan from 02/2019. Likely benign and differential would include old infectious disease vs inflammatory process or hamartoma. 2. Ex-minimal smoker 3. FH of breast cancer (mom diagnosed with breast cancer at the age of 51) 4. History of fibroids and hysterectomy ? PLAN: - CT chest in 1 year - to call us with any concerning symptoms - RTC in after the CT chest is done ? I discussed the plan in detail with the patient. ? Thiago Hernandez MD Cc to Dr Dennise Hernandez MD 04/23/2019 10:06 AM Signed Follow up with me as needed or if any of the symptoms mentioned below arise. - shortness of breath or chest pain on exertion - decreasing exercise tolerance - long-lasting cough or sputum production or coughing up blood - unexplained lower extremity swelling - unintentional weight loss or loss of appetite - unexplained fevers or chills - any other concerning symptoms Referring Provider: THIAGO HERNANDEZ [[id number]] Allergies As of Date: 04/23/2019 (No Known Allergies) Date Reviewed: 04/23/2019 Reviewed by: Thiago Hernandez - Fully Assessed Reason for Visit: Nodule [1379] Primary Visit Diagnosis:Lung nodules [R91.8] Other Visit Diagnoses:Seasonal allergic rhinitis, unspecified trigger [J30.2] Ex-smoker [Z87.891] Obesity, Class I, BMI 30-34.9 [E66.9] Order(s):CT CHEST WO IVCON [[id number]] Order #: [id number] FUTURE Prescriptions as of 04/23/2019 Sig: CEFDINIR 300 MG CAPSULE Problem List As Of Date 04/23/2019 Noted Resolved Family history of malignant neoplasm of breast *INVALID FOR*08/07/2011 Mittelschmerz [N94.0] INVALID FOR*08/07/2011 ENDOMETRIOSIS NOS [N80.9] INVALID FOR* Unspecified symptom associated with female courtney*INVALID FOR*08/07/2011 Dysmenorrhea [N94.6] INVALID FOR*07/18/2016 Dyspareunia [ILS4737] INVALID FOR*11/26/2017 Abdominal pain, right lower quadrant [R10.31] INVALID FOR*08/07/2011 Abdominal pain, left lower quadrant [R10.32] INVALID FOR*08/07/2011 Excessive or frequent menstruation [N92.0] INVALID FOR*08/07/2011 Mastodynia [N64.4] INVALID FOR*11/26/2017 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 Basal cell carcinoma- left ear [C44.91] INVALID FOR* More... 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 Hereditary leiomyomatosis and renal cell cancer*INVALID FOR* More... Lung nodules [R91.8] INVALID FOR* Other instructions from your clinician: Follow up with me as needed or if any of the symptoms mentioned below arise. - shortness of breath or chest pain on exertion - decreasing exercise tolerance - long-lasting cough or sputum production or coughing up blood - unexplained lower extremity swelling - unintentional weight loss or loss of appetite - unexplained fevers or chills - any other concerning symptoms Medications Discontinued During This Encounter doxycycline (VIBRA-TABS) 100 mg tabl* 02/05/2019 04/23/2019 Class: Historical Med Route: ORAL Sig: Take 100 mg by mouth twice daily. Disc: Reason for discontinue is not on file. TURMERIC ORAL 04/23/2019 Class: Historical Med Route: ORAL Sig: Take by mouth once daily. Disc: Reason for discontinue is not on file. [place]-3 Fatty Acids 300 mg cap 04/23/2019 Class: Historical Med Route: ORAL Sig: Take 1 capsule by mouth once daily. Disc: Reason for discontinue is not on file. triamcinolone acetonide (NASACORT NA* 04/23/2019 Class: Historical Med Route: NASAL Sig: Use 1 [place] in the nose once daily. Disc: Reason for discontinue is not on file. Disposition: Return in about 1 year (around 04/23/2020). Follow-up and Disposition History Recorded Encounter Status:Closed by THIAGO HERNANDEZ MD on 04/23/19 [facility] PROGRESSon 04-23-2019 PROGRESS HNO ID: [id number] Author: Thiago Hernandez Service: ? Author Type: Physician Type: Progress Notes Filed: 04/23/2019 10:07 AM Note Text: Pulmonary Established Visit PATIENT NAME: Kyra Jo SERVICE DATE: 04/23/2019 CHIEF COMPLAINT: Pulmonary nodule ? HISTORY OF PRESENT ILLNESS: Kyra Jo is a 38 year old white woman with a past medical history significant for problems listed below seen in the office today for the above reason. She was seen by me in August and was asked to get a CT chest in Feb. She had it done and is here for follow up. Since the last visit, she denies any new symptoms. She denies any unintentional weight loss or loss of appetite or fevers or chills or any cardiopulmonary symptoms. ? She denies any cardio-pulmonary symptoms with usual activities. She denies any unexplained fevers or chills or weight loss or loss of appetite. ? SH: Lives with and two kids; has a dog at home; no birds; no known TB exposure; no mold at home ? 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 and is on chemo; no other family history of cancers PAST MEDICAL HISTORY Diagnosis Date - Basal cell carcinoma 2017 ear - Dysthymic disorder OFF ZOLOFT SINCE Depression (non-psychotic) - Endometriosis, site unspecified Endometriosis - Family history of malignant neoplasm of breast MOTHER - Impingement syndrome of shoulder region left - [place] - Pulmonary nodules - Sinus tachycardia DURING ACTIVE PROBLEM LIST Endometriosis, Site Unspecified Tietze's Disease Family history of malignant neoplasm of breast- mother Seasonal Allergic Rhinitis Basal cell carcinoma- left ear status post hysterectomy - ovaries spared Incidental Lung Nodule, Greater Than Or Equal to 8mm Intestinal Hernia Obesity, Class I, Bmi 30-34.9 Solitary Pulmonary Nodule Ex-Smoker 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) PAST SURGICAL HISTORY Procedure Laterality Date - APPENDECTOMY Right 08/19/2018 - ARTHROTOMY,OPEN REPAIR MENISCUS Left knee - DELIVERY ONLY 04-09-2004 , low cervical/ - DELIVERY ONLY 05/10/2005 , low cervical/bto - HYSTERECTOMY 05/2017 partial - HYSTERECTOMY HX - LIGATE FALLOPIAN TUBE 05/10/2005 Tubal ligation - LOW SKIN FACE EAR HND + 25SQ Left 2017 graft ear removal basal cell CA - MENISCAL REPAIR SYS,CD,[id number] 11/29/2015 Social History Socioeconomic History Marital status: Spouse name: SUELLEN JO Number of children: 2 Years of education: 14 Highest education level: Not on file Occupational History 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: [employer] Social Needs Financial resource strain: Not on file Food insecurity: Worry: Not on file Inability: Not on file Transportation needs: Medical: Not on file Non-medical: Not on file Tobacco Use Smoking status: Former Smoker Packs/day: 0.50 Years: 10.00 Pack years: 5 Types: Cigarettes Quit date: 2010 Years since quittin.8 Smokeless tobacco: Former User Quit date: 02/17/2012 Substance and Sexual Activity Alcohol use: Yes Comment: Rarely Drug use: No Sexual activity: Yes Partners: Male control/protection: Tubal Ligation, IUD Lifestyle Physical activity: Days per week: Not on file Minutes per session: Not on file Stress: Not on file Relationships Social connections: Talks on phone: Not on file Gets together: Not on file Attends episcopal service: Not on file Active member of club or organization: Not on file Attends meetings of clubs or organizations: Not on file Relationship status: Not on file Intimate partner violence: Fear of current or ex partner: Not on file Emotionally abused: Not on file Physically abused: Not on file Forced sexual activity: Not on file Other Topics Concerns: Service: Not Asked Blood Transfusions: Not Asked Caffeine Concern: Not Asked none reported Occupational Exposure: Not Asked Hobby Hazards: Not Asked Sleep Concern: Not Asked Stress Concern: Not Asked Weight Concern: Not Asked Special Diet: Not Asked Good diet Back Care: Not Asked Exercise: Yes Exercises 2-3 days/wk Bike Helmet: Not Asked Seat Belt: Not Asked Self-Exams: Not Asked Social History Narrative Not on file CURRENT OUTPATIENT MEDICATIONS: Current Outpatient Medications Medication Sig Dispense Refill - cefdinir (OMNICEF) 300 mg capsule No current facility-administered medications for this visit. ALLERGIES: ALLERGIES No Known Allergies REVIEW OF SYSTEMS: 10 systems reviewed and negative otherwise. PHYSICAL EXAM: BP 115/78 Pulse 60 Temp (Src) 98 (Oral) Resp 20 Ht 5' 2.992 (1.60m) Wt 174 lb 11.2 oz (79.2kg) SpO2 99[RA]% LMP 10/09/2012 BMI 30.95 kg/(m2). General appearance: Well appearing, alert, in no acute distress, well-hydrated, well nourished. HENT: External ears normal Eyes: no scleral icterus, PERRLA, EOMS, no conjunctivitis Nose/Sinuses: Nares normal. Septum midline. Mucosa normal. No drainage or sinus tenderness. Oropharynx: Lips, mucosa, and tongue normal, teeth and gums normal, oropharynx normal [place] Classification:Class I Respiratory: Lungs clear to auscultation. No wheezing, rhonchi, rales Cardiovascular: RRR without murmur, gallop, or rubs. No ectopy Ext: no pedal edema or cyanosis or clubbing. DATA: Diagnostic tests reviewed for today's visit, imaging was personally reviewed by me: CT chest 02/2019: 1. ?Stable to slightly decreased in size 6 mm left pericardiophrenic angle nodule, possibly small lymph node. 2. ?Few additional scattered subcentimeter pulmonary nodules also stable. CT chest 08/2018: 1. ?7 mm pulmonary nodule at the cardiophrenic angle within the lingula. ?Given that this abuts the heart border percutaneous sampling would prove difficult. ?Recommend continued follow-up as detailed and the recommendations below or alternatively PET/CT. 2. ?Otherwise no acute process in the chest. ? CT abdo/ pelvis 07/2018: Left lower quadrant internal hernia with tapering of afferent and efferent segments of proximal and distal sigmoid colon at the hernia neck. ?While there is slight twisting of bowel and mesentery in this region concerning for an incomplete or partial volvulus, mild gaseous distention of the herniated mid sigmoid colon, and a moderate amount of formed stool throughout the more proximal colon implying some degree of chronic partial obstruction, there is no high-grade bowel obstruction or evidence of any complete acute volvulus per se at this time. Surgical consultation recommended, the timing of which should obviously take into account current clinical symptoms. ?Discussed with Dr. Sullivan at 8:42 pm on 08/14/[address] Elizondo. Pulmonary nodule. Incidental Finding: ?Follow-up for this incidentally detected lung nodule with PET/CT within [address] exam in 3 months is recommended. Migrated surgical clip abuts the cecum and appendix. ? ASSESSMENT: Kyra Jo is a 38 year old white woman with a past medical history significant for the above listed problems seen in the office today for evaluation of incidentally noted pulmonary nodule. ? 1. LLL 7 mm nodule and few other sub-centimeter pulmonary nodules; all stable on the scan from 02/2019. Likely benign and differential would include old infectious disease vs inflammatory process or hamartoma. 2. Ex-minimal smoker 3. FH of breast cancer (mom diagnosed with breast cancer at the age of 51) 4. History of fibroids and hysterectomy ? PLAN: - CT chest in 1 year - to call us with any concerning symptoms - RTC in after the CT chest is done ? I discussed the plan in detail with the patient. ? Thiago Hernandez MD Cc to Dr Marrero [facility] CT CHEST WO IVCONon 03-10-20 CT CHEST WO IVCON * * *Final Report* * * DATE OF EXAM: Mar 10 2019 9:20AM [facility] [id number] - CT CHEST WO IVCON / PROCEDURE REASON: Lung nodules * * * * Physician Interpretation * * * * EXAMINATION: CHEST CT WITHOUT CONTRAST CLINICAL HISTORY: Lung nodules . History of skin cancer. Technique: Spiral CT acquisition of the chest from the thoracic inlet to the upper abdomen without contrast. MQ: CTCWOR_4 CT Dose-Length Product: 139 mGy*cm CT Dose Reduction Employed: mAs-kVp adjusted based on patient size-age Comparison: Correlation made to visualized lung bases from abdominal CT dated 08/14/2018. Comparison made to chest CT dated 09/16/2018. RESULT: Limitations: None. Lines, tubes, and devices: None. Lung parenchyma and pleura: Stable mild biapical scarring. Stable to slightly decreased 6 mm left pericardiophrenic angle nodule possibly small lymph node (4, 252). Stable 3 mm medial lingular pulmonary nodule (3, 69). Stable 8 mm calcified nodule likely calcified granuloma at the right anterior lung bases (2, 117). Stable 3 mm triangular subpleural nodule in the right middle lobe (3, 118). No consolidation. No pleural effusion. Central airways are patent. Thoracic inlet, heart, and mediastinum: No lymphadenopathy in the axillary, mediastinal, or hilar regions. The thoracic aorta and main pulmonary artery are normal in caliber. The cardiac chambers are normal in size. No coronary artery atherosclerotic calcifications are noted, although the study is not optimized for coronary assessment. No pericardial effusion or thickening. Bones and soft tissues: No destructive bone lesion. Chest wall is unremarkable. Upper abdomen: No abnormality in the imaged unenhanced upper abdomen. IMPRESSION: 1. Stable to slightly decreased in size 6 mm left pericardiophrenic angle nodule, possibly small lymph node. 2. Few additional scattered subcentimeter pulmonary nodules also stable. Pest Control Worker Helper: HAIDER Transcribe Date/Time: Mar 10 2019 9:53A Dictated by : DENILSON WAN MD This examination was interpreted and the report reviewed and electronically signed by: DENILSON WAN MD on Mar 10 2019 10:08AM EST Normal [facility] CNOVon 02-10-2019 CNOV Office Visit ([facility]) KYRA JO ([id number]) 1980 F Date Time Provider Department 02/10/19 2:00 PM JARED MARRERO [facility] During your visit today, we recorded the following information about you: Temperature Pulse Respiration Blood pressure 97 degrees 83/minute 20/minute 126/64 Weight Height 80.9 kg 1.6 m Jared Marrero MD 02/10/2019 2:13 PM Signed Kyra Jo is a 38 year old female who presents with complaint of gen abd pain Abdominal Pain This is a recurrent problem. The current episode started more than 1 week ago. The problem occurs constantly. The problem has been gradually worsening. The pain is associated with a previous surgery. The pain is located in the RLQ. The quality of the pain is dull. The pain is at a severity of 2/10. The pain is mild. Associated symptoms include belching and constipation. Pertinent negatives include anorexia, fever, diarrhea, flatus, hematochezia, melena, nausea, vomiting, dysuria, frequency, hematuria, headaches, arthralgias and myalgias. The symptoms are aggravated by activity. Nothing relieves the symptoms. -she saw the nurse practitioner last month for similar symptoms urinalysis urine culture was negative Last 2 Encounter Wt Readings: Date: Wt: 02/10/2019 80.9 kg (178 lb 6.4 oz) 01/13/2019 81.6 kg (180 lb) Dx with endometriosis - many years ago - -was dx with clinically --she did not have any laparoscopic surgery to diagnose it or any other imaging She has had similar pain back in July 2018 she was diagnosed with acute appendicitis as well as potential small bowel obstruction or volvulus. --However nothing was found on laparoscopic Exam to that regard. She was seen by surgery and had an laparoscopic appendectomy --she felt fine after the surgery up until recently she noted after she was doing more abdominal crunches and abdominal exercises she would develop right upper quadrant right lower quadrant pain she also admitted to some more pain with intercourse. She states she also had changed her diet and noted that her abdominal pain seemed to decrease after the surgery with dietary changes She does have a yearly coming up she hasn't discussed this with them yet but she will her yearly exam. She states she has struggled with constipation especially when it's during her cycles in the past she does have both ovaries and she uses senna usually about once or twice a month She is passing gas She also has a positive gene and family history for hereditary leiomyomatosis and renal cancer syndrome and gene mutations that she's more risk for renal cancer and annual exams with MRI of the kidneys is recommended. 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) PAST MEDICAL HISTORY Diagnosis Date - Basal cell carcinoma 2017 ear - Dysthymic disorder OFF ZOLOFT SINCE Depression (non-psychotic) - Endometriosis, site unspecified Endometriosis - Family history of malignant neoplasm of breast MOTHER - 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 - Sinus tachycardia DURING PAST SURGICAL HISTORY Procedure Laterality Date - APPENDECTOMY Right 08/19/2018 - ARTHROTOMY,OPEN REPAIR MENISCUS Left knee - DELIVERY ONLY 04-09-2004 , low cervical/ - DELIVERY ONLY 05/10/2005 , low cervical/bto - HYSTERECTOMY 05/2017 partial - HYSTERECTOMY HX - LIGATE FALLOPIAN TUBE 05/10/2005 Tubal ligation - LOW SKIN FACE EAR HND + 25SQ Left 2017 graft ear removal basal cell CA - MENISCAL REPAIR FRED BROOKS,[id number] 11/29/2015 Social History Socioeconomic History Marital status: Spouse name: SUELLEN JO Number of children: 2 Years of education: 14 Highest education level: Not on file Occupational History 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: [employer] Social Needs Financial resource strain: Not on file Food insecurity: Worry: Not on file Inability: Not on file Transportation needs: Medical: Not on file Non-medical: Not on file Tobacco Use Smoking status: Former Smoker Packs/day: 0.50 Years: 10.00 Pack years: 5 Types: Cigarettes Quit date: 2010 Years since quittin.6 Smokeless tobacco: Former User Quit date: 02/17/2012 Substance and Sexual Activity Alcohol use: Yes Comment: Rarely Drug use: No Sexual activity: Yes Partners: Male control/protection: Tubal Ligation, IUD Lifestyle Physical activity: Days per week: Not on file Minutes per session: Not on file Stress: Not on file Relationships Social connections: Talks on phone: Not on file Gets together: Not on file Attends episcopal service: Not on file Active member of club or organization: Not on file Attends meetings of clubs or organizations: Not on file Relationship status: Not on file Intimate partner violence: Fear of current or ex partner: Not on file Emotionally abused: Not on file Physically abused: Not on file Forced sexual activity: Not on file Other Topics Concerns: Service: Not Asked Blood Transfusions: Not Asked Caffeine Concern: Not Asked none reported Occupational Exposure: Not Asked Hobby Hazards: Not Asked Sleep Concern: Not Asked Stress Concern: Not Asked Weight Concern: Not Asked Special Diet: Not Asked Good diet Back Care: Not Asked Exercise: Yes Exercises 2-3 days/wk Bike Helmet: Not Asked Seat Belt: Not Asked Self-Exams: Not Asked Social History Narrative Not on file ALLERGIES No Known Allergies Family History Problem Relation Age of Onset - Breast Cancer Mother 51 at age 51 Stage 4 - other (atrial fibrillation) Father 63 - other (heart attack) Paternal Grandfather 50 - other (fibroid tumor) Sister - other (endometriosis) Sister - other (Ovarian Cyst) Other Maternal Niece Current Outpatient Medications Medication Sig Dispense Refill - TURMERIC ORAL Take by mouth once daily. - [place]-3 Fatty Acids 300 mg cap Take 1 capsule by mouth once daily. No current facility-administered medications for this visit. Review of Systems Constitutional: Negative for fever. Gastrointestinal: Positive for abdominal pain and constipation. Negative for anorexia, blood in stool, diarrhea, flatus, heartburn, hematochezia, melena, nausea and vomiting. Genitourinary: Negative for dysuria, frequency and hematuria. Musculoskeletal: Negative for arthralgias and myalgias. Neurological: Negative for headaches. LMP 10/09/2012 Physical Exam Constitutional: She is oriented to person, place, and time and well-developed, well-nourished, and in no distress. No distress. HENT: Head: Normocephalic and atraumatic. Right Ear: External ear normal. Left Ear: External ear normal. Eyes: Pupils are equal, round, and reactive to light. Neck: Normal range of motion. Neck supple. No tracheal deviation present. No thyromegaly present. Cardiovascular: Normal rate, regular rhythm and normal heart sounds. Pulmonary/Chest: Effort normal and breath sounds normal. No respiratory distress. She has no wheezes. She has no rales. Abdominal: Soft. Bowel sounds are normal. She exhibits no distension. There is no hepatosplenomegaly, splenomegaly or hepatomegaly. There is tenderness in the right upper quadrant and right lower quadrant. There is CVA tenderness. There is no rebound. Musculoskeletal: Normal range of motion. She exhibits no edema or tenderness. Neurological: She is alert and oriented to person, place, and time. Skin: Skin is warm. No rash noted. She is not diaphoretic. No erythema. Psychiatric: Affect and judgment normal. Hospital Outpatient Visit on 01/13/2019 Component Date Value Ref Range Status - Urine Culture 01/13/2019 No growth at 1 day Preliminary - Urine Culture 01/13/2019 Final Value:Normal Urogenital Melyssa 50,000-99,000 CFU/ml - Color 01/13/2019 YELLOW Final - Urine Appearance 01/13/2019 CLEAR Final - Glucose, Urine 01/13/2019 NEGATIVE Negative mg/dL Final - Ketones, Urine 01/13/2019 NEGATIVE Negative mg/dL Final - Hemoglobin, Urine 01/13/2019 NEGATIVE Negative Final - Protein, Urine 01/13/2019 NEGATIVE Negative mg/dL Final - Nitrites Urine 01/13/2019 NEGATIVE Negative Final - Bilirubin, Urine 01/13/2019 NEGATIVE Negative Final - Specific [place], Ur 01/13/2019 1.007 1.005 - 1.030 Final - pH, Urine 01/13/2019 7.0 5.0 - 8.0 Final - Urobilinogen, Urine 01/13/2019 0.2 0.2 - 1.0 EU/dL Final - Leukocytes Esterase 01/13/2019 NEGATIVE Negative Final - RBC, Urine 01/13/2019 2.4 0.0 - 5.0 /hpf Final - WBC, Urine 01/13/2019 0.2 0.0 - 5.0 /hpf Final - EP Cells Urine 01/13/2019 1.2 0.0 - 5.0 /hpf Final - Bacteria, Urine 01/13/2019 NONE None Final - Hyaline Cast 01/13/2019 0.3 0.0 - 1.0 /lpf Final Results Only on 01/13/2019 Component Date Value Ref Range Status - GLUCOSE UA (POCT) 01/13/2019 Negative Negative mg/dL Final - BILIRUBIN UA (POCT) 01/13/2019 Negative Negative Final - KETONE UA (POCT) 01/13/2019 Negative Negative mg/dL Final - SPECIFIC GRAVITY UA (POCT) 01/13/2019 1.010 1.005 - 1.030 Final - HEMOGLOBIN/BLOOD UA (POCT) 01/13/2019 Trace-intact* Negative Final - PH UA (POCT) 01/13/2019 7.0 4.5 - 8.0 Final - PROTEIN UA (POCT) 01/13/2019 Negative Negative mg/dL Final - UROBILINOGEN UA (POCT) 01/13/2019 0.2 Normal E.U./dL Final - NITRITE UA (POCT) 01/13/2019 Negative Negative Final - LEUKOCYTES UA (POCT) 01/13/2019 Negative Negative Final - COLOR UA (POCT) 01/13/2019 Yellow Final - CLARITY UA (POCT) 01/13/2019 Clear Final New medication(s) prescribed today: None. Counseling completed in adopting health behaviors such as avoiding excessive alcohol use, avoid tobacco use, improve nutrition, and engage in physical activities. Copy of written care plan, clinical summary, treatment plan, new medications, goals, and self management requirements were given to patient. ASSESSMENT/PLAN: 1. Chronic pelvic pain in female - ICD9: 625.9, 338.29, ICD10: R10.2, G89.29 (primary diagnosis) - - US FEMALE PELVIS TRANSVAG - US KIDNEY/BLADDER 2. 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 Right flank pain - ICD9: 789.09, ICD10: R10.9 See above 5. Right lower quadrant pain - ICD9: See above --Discussed continuing fiber mixture she has soft stools. Discussed avoiding abdominal exercises and focus on more other aerobic activities such as stationary biking or treadmill avoid jumping and running exercises. --If patient has difficulty with keeping fluids or solids down on intractable vomiting or intractable abdominal pain would recommend going to the ER 6. Pelvic pain in female - ICD9: 625.9, ICD10: R10.2 Etiology unclear - Work up with Ultrasound transvaginal and complete ultrasound. --Long discussion with the patient that certainly this could certainly be adhesions/endometriosis /small bowel obstruction-- patient has an upcoming appointment with gynecology I encouraged her to recommend her to discuss her pelvic pain and right lower quadrant pain with gynecology. She may need specific imaging such as MRI of the pelvis or CT scan. 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 [place]-3 FATTY ACIDS 300 MG CA* Take 1 capsule by mouth once * Problem List As Of Date 02/10/2019 Noted Resolved Family history of malignant neoplasm of breast *INVALID FOR*08/07/2011 Mittelschmerz [N94.0] INVALID FOR*08/07/2011 ENDOMETRIOSIS NOS [N80.9] INVALID FOR* Unspecified symptom associated with female courtney*INVALID FOR*08/07/2011 Dysmenorrhea [N94.6] INVALID FOR*07/18/2016 Dyspareunia [[id number]] INVALID FOR*11/26/2017 Abdominal pain, right lower quadrant [R10.31] INVALID FOR*08/07/2011 Abdominal pain, left lower quadrant [R10.32] INVALID FOR*08/07/2011 Excessive or frequent menstruation [N92.0] INVALID FOR*08/07/2011 Mastodynia [N64.4] INVALID FOR*11/26/2017 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 Basal cell carcinoma- left ear [C44.91] INVALID FOR* More... status post hysterectomy - ovaries spared [Z90.*INVALID FOR* Incidental lung nodule, greater than or equal t*INVALID FOR* Intestinal hernia [K46.9] INVALID FOR* Volvulus of sigmoid colon (HCC) [K56.2] INVALID FOR*02/10/2019 Volvulus (HCC) [K56.2] INVALID FOR*08/17/2018 Obesity, Class I, BMI 30-34.9 [E66.9] INVALID FOR* Solitary pulmonary nodule [R91.1] INVALID FOR* Ex-smoker [Z87.891] INVALID FOR* Monoallelic mutation of FH gene-xr490z mutation*INVALID FOR* More... Hereditary leiomyomatosis and renal cell cancer*INVALID FOR* More... Disposition: Return if symptoms worsen or fail to improve. Follow-up and Disposition History Recorded Encounter Status:Closed by JARED MARRERO on 02/10/19 [facility] PROGRESSon 02-10-2019 PROGRESS HNO ID: [id number] Author: Jared Marrero Service: ? Author Type: Physician Type: Progress Notes Filed: 02/10/2019 2:13 PM Note Text: Kyra Jo is a 38 year old female who presents with complaint of gen abd pain Abdominal Pain This is a recurrent problem. The current episode started more than 1 week ago. The problem occurs constantly. The problem has been gradually worsening. The pain is associated with a previous surgery. The pain is located in the RLQ. The quality of the pain is dull. The pain is at a severity of 2/10. The pain is mild. Associated symptoms include belching and constipation. Pertinent negatives include anorexia, fever, diarrhea, flatus, hematochezia, melena, nausea, vomiting, dysuria, frequency, hematuria, headaches, arthralgias and myalgias. The symptoms are aggravated by activity. Nothing relieves the symptoms. -she saw the nurse practitioner last month for similar symptoms urinalysis urine culture was negative Last 2 Encounter Wt Readings: Date: Wt: 02/10/2019 80.9 kg (178 lb 6.4 oz) 01/13/2019 81.6 kg (180 lb) Dx with endometriosis - many years ago - -was dx with clinically --she did not have any laparoscopic surgery to diagnose it or any other imaging She has had similar pain back in July 2018 she was diagnosed with acute appendicitis as well as potential small bowel obstruction or volvulus. --However nothing was found on laparoscopic Exam to that regard. She was seen by surgery and had an laparoscopic appendectomy --she felt fine after the surgery up until recently she noted after she was doing more abdominal crunches and abdominal exercises she would develop right upper quadrant right lower quadrant pain she also admitted to some more pain with intercourse. She states she also had changed her diet and noted that her abdominal pain seemed to decrease after the surgery with dietary changes She does have a yearly coming up she hasn't discussed this with them yet but she will her yearly exam. She states she has struggled with constipation especially when it's during her cycles in the past she does have both ovaries and she uses senna usually about once or twice a month She is passing gas She also has a positive gene and family history for hereditary leiomyomatosis and renal cancer syndrome and gene mutations that she's more risk for renal cancer and annual exams with MRI of the kidneys is recommended. 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) PAST MEDICAL HISTORY Diagnosis Date - Basal cell carcinoma 2017 ear - Dysthymic disorder OFF ZOLOFT SINCE Depression (non-psychotic) - Endometriosis, site unspecified Endometriosis - Family history of malignant neoplasm of breast MOTHER - 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 - Sinus tachycardia DURING PAST SURGICAL HISTORY Procedure Laterality Date - APPENDECTOMY Right 08/19/2018 - ARTHROTOMY,OPEN REPAIR MENISCUS Left knee - DELIVERY ONLY 04-09-2004 , low cervical/ - DELIVERY ONLY 05/10/2005 , low cervical/bto - HYSTERECTOMY 05/2017 partial - HYSTERECTOMY HX - LIGATE FALLOPIAN TUBE 05/10/2005 Tubal ligation - LOW SKIN FACE EAR HND + 25SQ Left 2017 graft ear removal basal cell CA - MENISCAL REPAIR SYS,CD,[id number] 11/29/2015 Social History Socioeconomic History Marital status: Spouse name: SUELLEN JO Number of children: 2 Years of education: 14 Highest education level: Not on file Occupational History 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: [employer] Social Needs Financial resource strain: Not on file Food insecurity: Worry: Not on file Inability: Not on file Transportation needs: Medical: Not on file Non-medical: Not on file Tobacco Use Smoking status: Former Smoker Packs/day: 0.50 Years: 10.00 Pack years: 5 Types: Cigarettes Quit date: 2010 Years since quittin.6 Smokeless tobacco: Former User Quit date: 02/17/2012 Substance and Sexual Activity Alcohol use: Yes Comment: Rarely Drug use: No Sexual activity: Yes Partners: Male control/protection: Tubal Ligation, IUD Lifestyle Physical activity: Days per week: Not on file Minutes per session: Not on file Stress: Not on file Relationships Social connections: Talks on phone: Not on file Gets together: Not on file Attends episcopal service: Not on file Active member of club or organization: Not on file Attends meetings of clubs or organizations: Not on file Relationship status: Not on file Intimate partner violence: Fear of current or ex partner: Not on file Emotionally abused: Not on file Physically abused: Not on file Forced sexual activity: Not on file Other Topics Concerns: Service: Not Asked Blood Transfusions: Not Asked Caffeine Concern: Not Asked none reported Occupational Exposure: Not Asked Hobby Hazards: Not Asked Sleep Concern: Not Asked Stress Concern: Not Asked Weight Concern: Not Asked Special Diet: Not Asked Good diet Back Care: Not Asked Exercise: Yes Exercises 2-3 days/wk Bike Helmet: Not Asked Seat Belt: Not Asked Self-Exams: Not Asked Social History Narrative Not on file ALLERGIES No Known Allergies Family History Problem Relation Age of Onset - Breast Cancer Mother 51 at age 51 Stage 4 - other (atrial fibrillation) Father 63 - other (heart attack) Paternal Grandfather 50 - other (fibroid tumor) Sister - other (endometriosis) Sister - other (Ovarian Cyst) Other Maternal Niece Current Outpatient Medications Medication Sig Dispense Refill - TURMERIC ORAL Take by mouth once daily. - [place]-3 Fatty Acids 300 mg cap Take 1 capsule by mouth once daily. No current facility-administered medications for this visit. Review of Systems Constitutional: Negative for fever. Gastrointestinal: Positive for abdominal pain and constipation. Negative for anorexia, blood in stool, diarrhea, flatus, heartburn, hematochezia, melena, nausea and vomiting. Genitourinary: Negative for dysuria, frequency and hematuria. Musculoskeletal: Negative for arthralgias and myalgias. Neurological: Negative for headaches. LMP 10/09/2012 Physical Exam Constitutional: She is oriented to person, place, and time and well-developed, well-nourished, and in no distress. No distress. HENT: Head: Normocephalic and atraumatic. Right Ear: External ear normal. Left Ear: External ear normal. Eyes: Pupils are equal, round, and reactive to light. Neck: Normal range of motion. Neck supple. No tracheal deviation present. No thyromegaly present. Cardiovascular: Normal rate, regular rhythm and normal heart sounds. Pulmonary/Chest: Effort normal and breath sounds normal. No respiratory distress. She has no wheezes. She has no rales. Abdominal: Soft. Bowel sounds are normal. She exhibits no distension. There is no hepatosplenomegaly, splenomegaly or hepatomegaly. There is tenderness in the right upper quadrant and right lower quadrant. There is CVA tenderness. There is no rebound. Musculoskeletal: Normal range of motion. She exhibits no edema or tenderness. Neurological: She is alert and oriented to person, place, and time. Skin: Skin is warm. No rash noted. She is not diaphoretic. No erythema. Psychiatric: Affect and judgment normal. Hospital Outpatient Visit on 01/13/2019 Component Date Value Ref Range Status - Urine Culture 01/13/2019 No growth at 1 day Preliminary - Urine Culture 01/13/2019 Final Value:Normal Urogenital Melyssa 50,000-99,000 CFU/ml - Color 01/13/2019 YELLOW Final - Urine Appearance 01/13/2019 CLEAR Final - Glucose, Urine 01/13/2019 NEGATIVE Negative mg/dL Final - Ketones, Urine 01/13/2019 NEGATIVE Negative mg/dL Final - Hemoglobin, Urine 01/13/2019 NEGATIVE Negative Final - Protein, Urine 01/13/2019 NEGATIVE Negative mg/dL Final - Nitrites Urine 01/13/2019 NEGATIVE Negative Final - Bilirubin, Urine 01/13/2019 NEGATIVE Negative Final - Specific Rapelje, Ur 01/13/2019 1.007 1.005 - 1.030 Final - pH, Urine 01/13/2019 7.0 5.0 - 8.0 Final - Urobilinogen, Urine 01/13/2019 0.2 0.2 - 1.0 EU/dL Final - Leukocytes Esterase 01/13/2019 NEGATIVE Negative Final - RBC, Urine 01/13/2019 2.4 0.0 - 5.0 /hpf Final - WBC, Urine 01/13/2019 0.2 0.0 - 5.0 /hpf Final - EP Cells Urine 01/13/2019 1.2 0.0 - 5.0 /hpf Final - Bacteria, Urine 01/13/2019 NONE None Final - Hyaline Cast 01/13/2019 0.3 0.0 - 1.0 /lpf Final Results Only on 01/13/2019 Component Date Value Ref Range Status - GLUCOSE UA (POCT) 01/13/2019 Negative Negative mg/dL Final - BILIRUBIN UA (POCT) 01/13/2019 Negative Negative Final - KETONE UA (POCT) 01/13/2019 Negative Negative mg/dL Final - SPECIFIC GRAVITY UA (POCT) 01/13/2019 1.010 1.005 - 1.030 Final - HEMOGLOBIN/BLOOD UA (POCT) 01/13/2019 Trace-intact* Negative Final - PH UA (POCT) 01/13/2019 7.0 4.5 - 8.0 Final - PROTEIN UA (POCT) 01/13/2019 Negative Negative mg/dL Final - UROBILINOGEN UA (POCT) 01/13/2019 0.2 Normal E.U./dL Final - NITRITE UA (POCT) 01/13/2019 Negative Negative Final - LEUKOCYTES UA (POCT) 01/13/2019 Negative Negative Final - COLOR UA (POCT) 01/13/2019 Yellow Final - CLARITY UA (POCT) 01/13/2019 Clear Final New medication(s) prescribed today: None. Counseling completed in adopting health behaviors such as avoiding excessive alcohol use, avoid tobacco use, improve nutrition, and engage in physical activities. Copy of written care plan, clinical summary, treatment plan, new medications, goals, and self management requirements were given to patient. ASSESSMENT/PLAN: 1. Chronic pelvic pain in female - ICD9: 625.9, 338.29, ICD10: R10.2, G89.29 (primary diagnosis) - - US FEMALE PELVIS TRANSVAG - US KIDNEY/BLADDER 2. 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 Right flank pain - ICD9: 789.09, ICD10: R10.9 See above 5. Right lower quadrant pain - ICD9: See above --Discussed continuing fiber mixture she has soft stools. Discussed avoiding abdominal exercises and focus on more other aerobic activities such as stationary biking or treadmill avoid jumping and running exercises. --If patient has difficulty with keeping fluids or solids down on intractable vomiting or intractable abdominal pain would recommend going to the ER 6. Pelvic pain in female - ICD9: 625.9, ICD10: R10.2 Etiology unclear - Work up with Ultrasound transvaginal and complete ultrasound. --Long discussion with the patient that certainly this could certainly be adhesions/endometriosis /small bowel obstruction-- patient has an upcoming appointment with gynecology I encouraged her to recommend her to discuss her pelvic pain and right lower quadrant pain with gynecology. She may need specific imaging such as MRI of the pelvis or CT scan. She wanted to avoid CAT scanning and will talk to her GIMP BUTTONHOLE MACHINE OPERATOR about imaging I did order ultrasounds in case she needs to get those done after she talks GIMP BUTTONHOLE MACHINE OPERATOR - Treatment for constipation discussed - Jared Marrero MD Normal [facility] Urinalysis Routineon 01-14-2 019 Bacteria LM.HPF (Urine sed) [#/Area] NONE Normal None [facility] Comment on above: Performed By: #### U RIN2 #### [place] [address] Ep Cells Urine 1.2 /hpf Normal 0.0-5.0 [facility] Comment on above: Performed By: #### U RIN2 #### [facility] [address] [place], [place] [address] Hyaline Cast 0.3 /lpf Normal 0.0-1.0 [facility] Comment on above: Performed By: #### U RIN2 #### [facility] [address] [place], [place] [address] RBC LM.HPF (Urine sed) [#/Area] 2.4 /[HPF] Normal 0.0-5.0 [facility] Comment on above: Performed By: #### U RIN2 #### [facility] [address] [place] [address] WBC LM.HPF (Urine sed) [#/Area] 0.2 /[HPF] Normal 0.0-5.0 [facility] Comment on above: Performed By: #### U RIN2 #### [place] [address] Appearance (U) CLEAR Normal [facility] Comment on above: Performed By: #### U RIN2 #### [place] [address] Bilirubin (U) [Mass/Vol] Negative Normal Negative [facility] Comment on above: Performed By: #### U RIN2 #### [place] [address] Color (U) YELLOW Normal [facility] Comment on above: Performed By: #### U RIN2 #### [place] [address] Glucose Ql (U) Negative Normal Negative [facility] Comment on above: Performed By: #### U RIN2 #### [place] [address] Hemoglobin,Urine Negative Normal Negative [facility] Comment on above: Performed By: #### U RIN2 #### [place] [address] Ketone Urine Negative Normal Negative [facility] Comment on above: Performed By: #### U RIN2 #### [place] [address] Leukocytes Esterase Negative Normal Negative [facility] Comment on above: Performed By: #### U RIN2 #### [place] [address] Nitrites Urine Negative Normal Negative [facility] Comment on above: Performed By: #### U RIN2 #### [place] [address] pH (U) 7.0 [pH] Normal 5.0-8.0 [facility] Comment on above: Performed By: #### U RIN2 #### [facility] [address] [place], [place] [address] Protein (U) [Mass/Vol] Negative Normal Negative [facility] Comment on above: Performed By: #### U RIN2 #### [facility] [address] [place] [id number] Specific Rapelje, Ur 1.007 Normal 1.005-1.030 [facility] Comment on above: Performed By: #### U RIN2 #### [facility] [address] [place], [place] [address] Urobilinogen,Ur 0.2 EU/dL Normal 0.2-1.0 [facility] Comment on above: Performed By: #### U RIN2 #### [facility] [address] [place] [address] CNCOon 01-13-2019 CNCO Letter Text Normal [facility] CNOVon 01-13-2019 CNOV Office Visit ([facility]) KYRA JO ([id number]) 1980 F Date Time Provider Department 01/13/19 11:40 AM DESTINEY GUNTER (FOUNDATION ENGINEER.INVOICE CONTROL CLERK) [facility] During your visit today, we recorded the following information about you: Temperature Pulse Respiration Blood pressure 97 degrees 74/minute 16/minute 104/71 Weight Height 81.6 kg 1.61 m Destiney Gunter APRN.CNP 01/13/2019 1:48 PM Signed Destiney Gunter APRN.CNP [address] [place] [address] Visit Date: January 13, 2019 Ms.Rebekah Jo Date of : 1980 MRN/E #: [id number] History of Present Illness Kyra Jo is a 38 year old female. Patient presents to the clinic today for an acute visit. C/O vague generalized abdominal pain since Friday. States she has been increasing her workout regimen. Performed abdominal workouts on Friday, newly incorporated abdominal crunches. Pain is characterized as a general ache, it is improving, currently 2/10 at rest. Friday/Friday had a change in appetite, has since returned back to normal. Denies nausea/ vomiting, CP, SOB, fevers, chills, night sweats.Denies changes in bowel movements, urination. No blood in stool or urine. Denies recent travel, changes in diet. Hx of appendectomy in September. Partial hysterectomy / ovary spared?secondary to fibroids. Also hx of FH gene mutation. 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 - Sinus tachycardia DURING Social History Tobacco Use - Smoking status: Former Smoker Packs/day: 0.50 Years: 10.00 Pack years: 5.00 Types: Cigarettes Last attempt to quit: 2010 Years since quittin.5 - Smokeless tobacco: Former User Quit date: 02/17/2012 Substance Use Topics - Alcohol use: Yes Comment: Rarely - Drug use: No ALLERGIES No Known Allergies Current Outpatient Medications: TURMERIC ORAL Take by mouth once daily. [place]-3 Fatty Acids 300 mg cap Take 1 capsule by mouth once daily. No current facility-administered medications for this visit. Review of Systems Review of Systems Constitutional: Negative for activity change, appetite change, chills, diaphoresis, fatigue, fever and unexpected weight change. Respiratory: Negative for cough, chest tightness, shortness of breath and wheezing. Cardiovascular: Negative for chest pain and palpitations. Gastrointestinal: Positive for abdominal pain. Negative for abdominal distention, anal bleeding, blood in stool, constipation, diarrhea, nausea, rectal pain and vomiting. Genitourinary: Negative for decreased urine volume, difficulty urinating, dysuria, flank pain, frequency, hematuria, urgency, vaginal bleeding, vaginal discharge and vaginal pain. Neurological: Negative for dizziness, tremors, weakness, light-headedness, numbness and headaches. Psychiatric/Behavioral: Negative for confusion. The patient is not nervous/anxious. Physical Exam BP 104/71 Pulse 74 Temp (Src) 97 (Left Tympanic) Resp 16 Ht 5' 3.386 (1.61m) Wt 180 lb (81.6kg) SpO2 98% LMP 10/09/2012 BMI 31.50 kg/(m2). Physical Exam Constitutional: She is oriented to person, place, and time. Vital signs are normal. She appears well-developed and well-nourished. Neck: Trachea normal. Cardiovascular: Normal rate, regular rhythm, normal heart sounds and normal pulses. Pulmonary/Chest: Effort normal and breath sounds normal. Abdominal: Soft. Normal appearance and bowel sounds are normal. She exhibits no shifting dullness, no distension, no pulsatile liver, no fluid wave, no abdominal bruit, no ascites, no pulsatile midline mass and no mass. There is generalized tenderness and tenderness in the suprapubic area. There is no rigidity, no rebound, no guarding, no CVA tenderness, no tenderness at McBurney's point and negative Hong's sign. No hernia. Neurological: She is alert and oriented to person, place, and time. Skin: Skin is warm, dry and intact. Psychiatric: She has a normal mood and affect. Her speech is normal and behavior is normal. Judgment and thought content normal. Cognition and memory are normal. ASSESSMENT/PLAN: 1. Generalized abdominal discomfort - ICD9: 789.07, ICD10: R10.84 (primary diagnosis) - Unclear etiology at this time. - Educated to monitor symptoms and associated activities - To call office with persistent or worsening symptoms - Labs of Urine analysis - Follow up in 1 weeks or sooner if worsening of symptoms 2. Suprapubic discomfort - ICD9: 789.09, ICD10: R10.2 - URINALYSIS WITH MICROSCOPIC - UA DIP, URINE (POC) - URINE CULTURE Destiney Gunter APRN.INVOICE CONTROL CLERK No follow-ups on file. Discussed above plan with patient and/or caregiver. Patient and/or caregiver agreeable with above plan. Signed on January 13, 2019 11:36 AM Referring Provider: SELF [[id number]] Allergies As of Date: 01/13/2019 (No Known Allergies) Date Reviewed: 01/13/2019 Reviewed by: Shanae ([facility] - Fully Assessed Reason for Visit: Abdominal Pain [1] Cmt: abdomen hurts from last friday, rt side back hurt for few months Reason For Visit History Recorded Primary Visit Diagnosis:Generalized abdominal discomfort [R10.84] Other Visit Diagnosis:Suprapubic discomfort [R10.2] Order(s):URINALYSIS WITH MICROSCOPIC [SQUAWMIC] Order #: [id number] FUTURE UA DIP, URINE (POC) [0512095] Order #: [id number] URINE CULTURE [SQURCUL] Order #: [id number] FUTURE Prescriptions as of 01/13/2019 Sig: TURMERIC ORAL Take by mouth once daily. OMEGA-3 FATTY ACIDS 300 MG CA* Take 1 capsule by mouth once * Problem List As Of Date 01/13/2019 Noted Resolved Family history of malignant neoplasm of breast *INVALID FOR*08/07/2011 Mittelschmerz [N94.0] INVALID FOR*08/07/2011 ENDOMETRIOSIS NOS [N80.9] INVALID FOR* Unspecified symptom associated with female courtney*INVALID FOR*08/07/2011 Dysmenorrhea [N94.6] INVALID FOR*07/18/2016 Dyspareunia [UCR9459] INVALID FOR*11/26/2017 Abdominal pain, right lower quadrant [R10.31] INVALID FOR*08/07/2011 Abdominal pain, left lower quadrant [R10.32] INVALID FOR*08/07/2011 Excessive or frequent menstruation [N92.0] INVALID FOR*08/07/2011 Mastodynia [N64.4] INVALID FOR*11/26/2017 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 Basal cell carcinoma- left ear [C44.91] INVALID FOR* More... 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 Author Type: Nurse Practitioner Type: Progress Notes Filed: 01/13/2019 1:48 PM Note Text: Destiney Gunter APRN.CNP [address] [place] [address] Visit Date: January 13, 2019 Ms.Rebekah Jo Date of : 1980 MRN/E #: [id number] History of Present Illness Kyra Jo is a 38 year old female. Patient presents to the clinic today for an acute visit. C/O vague generalized abdominal pain since Friday. States she has been increasing her workout regimen. Performed abdominal workouts on Friday, newly incorporated abdominal crunches. Pain is characterized as a general ache, it is improving, currently 2/10 at rest. Friday/Friday had a change in appetite, has since returned back to normal. Denies nausea/ vomiting, CP, SOB, fevers, chills, night sweats.Denies changes in bowel movements, urination. No blood in stool or urine. Denies recent travel, changes in diet. Hx of appendectomy in September. Partial hysterectomy / ovary spared?secondary to fibroids. Also hx of FH gene mutation. PAST MEDICAL HISTORY Diagnosis Date - Basal cell carcinoma 2017 ear - Dysthymic disorder OFF [place]OLO[place] SINCE Depression (non-psychotic) - Endometriosis, site unspecified Endometriosis - Family history of malignant neoplasm of breast MOTHER - Impingement syndrome of shoulder region left - Kaushikteleoncio - Sinus tachycardia DURING Social History Tobacco Use - Smoking status: Former Smoker Packs/day: 0.50 Years: 10.00 Pack years: 5.00 Types: Cigarettes Last attempt to quit: 2010 Years since quittin.5 - Smokeless tobacco: Former User Quit date: 02/17/2012 Substance Use Topics - Alcohol use: Yes Comment: Rarely - Drug use: No ALLERGIES No Known Allergies Current Outpatient Medications: TURMERIC ORAL Take by mouth once daily. [place]-3 Fatty Acids 300 mg cap Take 1 capsule by mouth once daily. No current facility-administered medications for this visit. Review of Systems Review of Systems Constitutional: Negative for activity change, appetite change, chills, diaphoresis, fatigue, fever and unexpected weight change. Respiratory: Negative for cough, chest tightness, shortness of breath and wheezing. Cardiovascular: Negative for chest pain and palpitations. Gastrointestinal: Positive for abdominal pain. Negative for abdominal distention, anal bleeding, blood in stool, constipation, diarrhea, nausea, rectal pain and vomiting. Genitourinary: Negative for decreased urine volume, difficulty urinating, dysuria, flank pain, frequency, hematuria, urgency, vaginal bleeding, vaginal discharge and vaginal pain. Neurological: Negative for dizziness, tremors, weakness, light-headedness, numbness and headaches. Psychiatric/Behavioral: Negative for confusion. The patient is not nervous/anxious. Physical Exam BP 104/71 Pulse 74 Temp (Src) 97 (Left Tympanic) Resp 16 Ht 5' 3.386 (1.61m) Wt 180 lb (81.6kg) SpO2 98% LMP 10/09/2012 BMI 31.50 kg/(m2). Physical Exam Constitutional: She is oriented to person, place, and time. Vital signs are normal. She appears well-developed and well-nourished. Neck: Trachea normal. Cardiovascular: Normal rate, regular rhythm, normal heart sounds and normal pulses. Pulmonary/Chest: Effort normal and breath sounds normal. Abdominal: Soft. Normal appearance and bowel sounds are normal. She exhibits no shifting dullness, no distension, no pulsatile liver, no fluid wave, no abdominal bruit, no ascites, no pulsatile midline mass and no mass. There is generalized tenderness and tenderness in the suprapubic area. There is no rigidity, no rebound, no guarding, no CVA tenderness, no tenderness at McBurney's point and negative Hong's sign. No hernia. Neurological: She is alert and oriented to person, place, and time. Skin: Skin is warm, dry and intact. Psychiatric: She has a normal mood and affect. Her speech is normal and behavior is normal. Judgment and thought content normal. Cognition and memory are normal. ASSESSMENT/PLAN: 1. Generalized abdominal discomfort - ICD9: 789.07, ICD10: R10.84 (primary diagnosis) - Unclear etiology at this time. - Educated to monitor symptoms and associated activities - To call office with persistent or worsening symptoms - Labs of Urine analysis - Follow up in 1 weeks or sooner if worsening of symptoms 2. Suprapubic discomfort - ICD9: 789.09, ICD10: R10.2 - URINALYSIS WITH MICROSCOPIC - UA DIP, URINE (POC) - URINE CULTURE Destiney Gunter, FOUNDATION ENGINEER.INVOICE CONTROL CLERK No follow-ups on file. Discussed above plan with patient and/or caregiver. Patient and/or caregiver agreeable with above plan. Signed on January 13, 2019 11:36 AM Normal [facility] CNOVon 10-26-2018 [facility] KYRA JO ([id number]) 1980 F Date Time Provider Department 10/26/18 10:00 AM JARED MARRERO [facility] During your visit today, we recorded the following information about you: Temperature Pulse Respiration Blood pressure 97.2 degrees 76/minute 20/minute 110/77 Weight Height 81.3 kg 1.6 m Jared Marrero MD 10/26/2018 10:02 AM Signed Kyra Jo is a 38 year old female here today for a check up on her medical problems. HPI Subjective Concern(s) today include: Non just to talk about the genetic test results Her medications were reviewed today and her list is now up to date. She is compliant on taking her medications :Yes She is tolerating her medication(s) without side effects: Yes She is following an appropriate diet for her medical problems: Yes She is getting some exercise in? Yes Since I last saw her she had emergency appendectomy she was having quadrant pain on and off for several months took a while to get the CT scan approved and she ends up having to go into the hospital urgently. Had surgical clip that migrated as well He had postop visits of surgery she is heading back to being more physically active with more exercise. Patient also incidentally during a CT scan of the abdomen and pelvis she had incidental lung nodule she did see pulmonology and so far she's been CT scan in 6 months he is thinking more along benign lesions she is otherwise asymptomatic Genetic testing- positive for FH Sheldon this puts her more risk for hereditary leiomyomatosis and renal cell cancer syndrome - yearly screens recommneded with ct scan contrast or mri She had one in In July which did not show any renal masses systems to be considered her baseline She does bring the paperwork from the genetic testing confirms a diagnosis of hereditary gliomatosis and renal cancer syndrome He does see truck unloader already for skin cancer testing due to history's, cell carcinoma she does have development of tumors on her right arm she also is status post hysterectomy with ovary sparing due to endometriosis and bleeding in the past ACTIVE PROBLEM LIST Endometriosis, Site Unspecified Tietze's Disease Family history of malignant neoplasm of breast- mother Seasonal Allergic Rhinitis Basal cell carcinoma- left ear status post hysterectomy - ovaries spared Incidental Lung Nodule, Greater Than Or Equal to 8mm Intestinal Hernia Volvulus of Sigmoid Colon (Hcc) Obesity, Class I, Bmi 30-34.9 Solitary Pulmonary Nodule Ex-Smoker PAST MEDICAL HISTORY Diagnosis Date - Basal cell carcinoma 2017 ear - Dysthymic disorder OFF ZOLOFT SINCE Depression (non-psychotic) - Endometriosis, site unspecified Endometriosis - Family history of malignant neoplasm of breast MOTHER - 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 - Sinus tachycardia DURING PAST SURGICAL HISTORY Procedure Laterality Date - APPENDECTOMY Right 08/19/2018 - ARTHROTOMY,OPEN REPAIR MENISCUS Left knee - DELIVERY ONLY 04-09-2004 , low cervical/ - DELIVERY ONLY 05/10/2005 , low cervical/bto - HYSTERECTOMY 05/2017 partial - HYSTERECTOMY HX - LIGATE FALLOPIAN TUBE 05/10/2005 Tubal ligation - LOW SKIN FACE EAR HND + 25SQ Left 2016 graft ear removal basal cell CA - MENISCAL REPAIR FRED BROOKS,[id number] 11/29/2015 Social History Socioeconomic History Marital status: Spouse name: SUELLEN JO Number of children: 2 Years of education: 14 Highest education level: Not on file Social Needs Financial resource strain: Not on file Food insecurity - worry: Not on file Food insecurity - inability: Not on file Transportation needs - medical: Not on file Transportation needs - non-medical: Not on file Occupational History 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: [employer] Tobacco Use Smoking status: Former Smoker Packs/day: 0.50 Years: 10.00 Pack years: 5 Types: Cigarettes Quit date: 2010 Years since quittin.3 Smokeless tobacco: Former User Quit date: 02/17/2012 Substance and Sexual Activity Alcohol use: Yes Comment: Rarely Drug use: No Sexual activity: Yes Partners: Male control/protection: Tubal Ligation, IUD Other Topics Concerns: Service: Not Asked Blood Transfusions: Not Asked Caffeine Concern: Not Asked none reported Occupational Exposure: Not Asked Hobby Hazards: Not Asked Sleep Concern: Not Asked Stress Concern: Not Asked Weight Concern: Not Asked Special Diet: Not Asked Good diet Back Care: Not Asked Exercise: Yes Exercises 2-3 days/wk Bike Helmet: Not Asked Seat Belt: Not Asked Self-Exams: Not Asked Social History Narrative Not on file ALLERGIES No Known Allergies Family History Problem Relation Age of Onset - Breast Cancer Mother 51 at age 51 Stage 4 - other (atrial fibrillation) Father 63 - other (heart attack) Paternal Grandfather 50 - other (fibroid tumor) Sister - other (endometriosis) Sister - other (Ovarian Cyst) Other Maternal Niece Current Outpatient Medications: TURMERIC ORAL Take by mouth once daily. Disp: Rfl: [place]-3 Fatty Acids 300 mg cap Take 1 capsule by mouth once daily. Disp: Rfl: No current facility-administered medications for this visit. Review of Systems Constitutional: Negative. HENT: Negative. Eyes: Negative. Negative for blurred vision and double vision. Respiratory: Negative. Cardiovascular: Negative. Gastrointestinal: Negative. Negative for heartburn, nausea and vomiting. Genitourinary: Negative. Negative for dysuria, flank pain, frequency, hematuria and urgency. Musculoskeletal: Negative. Skin: Negative. Neurological: Negative. Endo/Heme/Allergies: Negative. Psychiatric/Behavioral: Negative. BP 110/77 Pulse 76 Temp (Src) 97.2 (Tympanic) Resp 20 Ht 5' 3 (1.60m) Wt 179 lb 3.2 oz (81.3kg) SpO2 99% LMP 10/09/2012 BMI 31.75 kg/(m2). Physical Exam Constitutional: She is oriented to person, place, and time and well-developed, well-nourished, and in no distress. No distress. HENT: Head: Normocephalic and atraumatic. Right Ear: External ear normal. Left Ear: External ear normal. Eyes: Pupils are equal, round, and reactive to light. Neck: Normal range of motion. Neck supple. No tracheal deviation present. No thyromegaly present. Cardiovascular: Normal rate, regular rhythm and normal heart sounds. Pulmonary/Chest: Effort normal and breath sounds normal. No respiratory distress. She has no wheezes. She has no rales. Abdominal: Soft. Bowel sounds are normal. She exhibits no distension. There is no tenderness. There is no rebound. Musculoskeletal: Normal range of motion. She exhibits no edema or tenderness. Neurological: She is alert and oriented to person, place, and time. Skin: Skin is warm. No rash noted. She is not diaphoretic. No erythema. Psychiatric: Affect and judgment normal. No visits with results within 30 Day(s) from this visit. Latest known visit with results is: Appointment on 09/16/2018 Component Date Value Ref Range Status - Radiology Result 09/16/2018 ACTIONABLE* Final Comment: This report contains an incidental finding. This is a new finding that is separate from the reason your provider ordered the imaging test. Because of this incidental finding, you may need another imaging test to evaluate it. Please contact your provider for the next steps. New medication(s) prescribed today: None. Counseling completed in adopting health behaviors such as avoiding excessive alcohol use, avoid tobacco use, improve nutrition, and engage in physical activities. Copy of written care plan, clinical summary, treatment plan, new medications, goals, and self management requirements were given to patient. ASSESSMENT/PLAN: 1. Solitary pulmonary nodule - ICD9: 793.11, ICD10: R91.1 (primary diagnosis) --Been followed by pulmonology this is likely benign she has a CT scan coming up in March 2. 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 OMEGA-3 FATTY ACIDS 300 MG CA* Take 1 capsule by mouth once * POLYMYXIN B SULFATE 10,000 UN* Use 1 Drop in both eyes every* Problem List As Of Date 10/26/2018 Noted Resolved Family history of malignant neoplasm of breast *INVALID FOR*08/07/2011 Mittelschmerz [N94.0] INVALID FOR*08/07/2011 ENDOMETRIOSIS NOS [N80.9] INVALID FOR* Unspecified symptom associated with female courtney*INVALID FOR*08/07/2011 Dysmenorrhea [N94.6] INVALID FOR*07/18/2016 Dyspareunia [WPL7356] INVALID FOR*11/26/2017 Abdominal pain, right lower quadrant [R10.31] INVALID FOR*08/07/2011 Abdominal pain, left lower quadrant [R10.32] INVALID FOR*08/07/2011 Excessive or frequent menstruation [N92.0] INVALID FOR*08/07/2011 Mastodynia [N64.4] INVALID FOR*11/26/2017 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 Basal cell carcinoma- left ear [C44.91] INVALID FOR* More... 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 Disposition: Return in about 1 year (around 10/27/2019) for well adult exam . Follow-up and Disposition History Recorded Encounter Status:Closed by JARED MARRERO on 10/26/18 [facility] PROGRESSon 10-26-2018 PROGRESS HNO ID: [id number] Author: Jared Marrero Service: ? Author Type: Physician Type: Progress Notes Filed: 10/26/2018 10:02 AM Note Text: Kyra Jo is a 38 year old female here today for a check up on her medical problems. HPI Subjective Concern(s) today include: Non just to talk about the genetic test results Her medications were reviewed today and her list is now up to date. She is compliant on taking her medications :Yes She is tolerating her medication(s) without side effects: Yes She is following an appropriate diet for her medical problems: Yes She is getting some exercise in? Yes Since I last saw her she had emergency appendectomy she was having quadrant pain on and off for several months took a while to get the CT scan approved and she ends up having to go into the hospital urgently. Had surgical clip that migrated as well He had postop visits of surgery she is heading back to being more physically active with more exercise. Patient also incidentally during a CT scan of the abdomen and pelvis she had incidental lung nodule she did see pulmonology and so far she's been CT scan in 6 months he is thinking more along benign lesions she is otherwise asymptomatic Genetic testing- positive for FH Sheldon this puts her more risk for hereditary leiomyomatosis and renal cell cancer syndrome - yearly screens recommneded with ct scan contrast or mri She had one in In July which did not show any renal masses systems to be considered her baseline She does bring the paperwork from the genetic testing confirms a diagnosis of hereditary gliomatosis and renal cancer syndrome 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 see truck unloader 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 for skin cancer testing due to history's, cell carcinoma she does have development of tumors on her right arm she also is status post hysterectomy with ovary sparing due to endometriosis and bleeding in the past ACTIVE PROBLEM LIST Endometriosis, Site Unspecified Tietze's Disease Family history of malignant neoplasm of breast- mother Seasonal Allergic Rhinitis Basal cell carcinoma- left ear status post hysterectomy - ovaries spared Incidental Lung Nodule, Greater Than Or Equal to 8mm Intestinal Hernia Volvulus of Sigmoid Colon (Hcc) Obesity, Class I, Bmi 30-34.9 Solitary Pulmonary Nodule Ex-Smoker PAST MEDICAL HISTORY Diagnosis Date - Basal cell carcinoma 2017 ear - Dysthymic disorder OFF [place] SINCE Depression (non-psychotic) - Endometriosis, site unspecified Endometriosis - Family history of malignant neoplasm of breast MOTHER - 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 - Sinus tachycardia DURING PAST SURGICAL HISTORY Procedure Laterality Date - APPENDECTOMY Right 08/19/2018 - ARTHROTOMY,OPEN REPAIR MENISCUS Left knee - DELIVERY ONLY 04-09-2004 , low cervical/ - DELIVERY ONLY 05/10/2005 , low cervical/bto - HYSTERECTOMY 05/2017 partial - HYSTERECTOMY HX - LIGATE FALLOPIAN TUBE 05/10/2005 Tubal ligation - LOW SKIN FACE EAR HND + 25SQ Left 2017 graft ear removal basal cell CA - MENISCAL REPAIR SYS,FRED,[id number] 11/29/2015 Social History Socioeconomic History Marital status: Spouse name: SUELLEN JO Number of children: 2 Years of education: 14 Highest education level: Not on file Social Needs Financial resource strain: Not on file Food insecurity - worry: Not on file Food insecurity - inability: Not on file Transportation needs - medical: Not on file Transportation needs - non-medical: Not on file Occupational History 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 Tobacco Use Smoking status: Former Smoker Packs/day: 0.50 Years: 10.00 Pack years: 5 Types: Cigarettes Quit date: 2010 Years since quittin.3 Smokeless tobacco: Former User Quit date: 02/17/2012 Substance and Sexual Activity Alcohol use: Yes Comment: Rarely Drug use: No Sexual activity: Yes Partners: Male control/protection: Tubal Ligation, IUD Other Topics Concerns: Service: Not Asked Blood Transfusions: Not Asked Caffeine Concern: Not Asked none reported Occupational Exposure: Not Asked Hobby Hazards: Not Asked Sleep Concern: Not Asked Stress Concern: Not Asked Weight Concern: Not Asked Special Diet: Not Asked Good diet Back Care: Not Asked Exercise: Yes Exercises 2-3 days/wk Bike Helmet: Not Asked Seat Belt: Not Asked Self-Exams: Not Asked Social History Narrative Not on file ALLERGIES No Known Allergies Family History Problem Relation Age of Onset - Breast Cancer Mother 51 at age 51 Stage 4 - other (atrial fibrillation) Father 63 - other (heart attack) Paternal Grandfather 50 - other (fibroid tumor) Sister - other (endometriosis) Sister - other (Ovarian Cyst) Other Maternal Niece Current Outpatient Medications: TURMERIC ORAL Take by mouth once daily. Disp: Rfl: [place]-3 Fatty Acids 300 mg cap Take 1 capsule by mouth once daily. Disp: Rfl: No current facility-administered medications for this visit. Review of Systems Constitutional: Negative. HENT: Negative. Eyes: Negative. Negative for blurred vision and double vision. Respiratory: Negative. Cardiovascular: Negative. Gastrointestinal: Negative. Negative for heartburn, nausea and vomiting. Genitourinary: Negative. Negative for dysuria, flank pain, frequency, hematuria and urgency. Musculoskeletal: Negative. Skin: Negative. Neurological: Negative. Endo/Heme/Allergies: Negative. Psychiatric/Behavioral: Negative. BP 110/77 Pulse 76 Temp (Src) 97.2 (Tympanic) Resp 20 Ht 5' 3 (1.60m) Wt 179 lb 3.2 oz (81.3kg) SpO2 99% LMP 10/09/2012 BMI 31.75 kg/(m2). Physical Exam Constitutional: She is oriented to person, place, and time and well-developed, well-nourished, and in no distress. No distress. HENT: Head: Normocephalic and atraumatic. Right Ear: External ear normal. Left Ear: External ear normal. Eyes: Pupils are equal, round, and reactive to light. Neck: Normal range of motion. Neck supple. No tracheal deviation present. No thyromegaly present. Cardiovascular: Normal rate, regular rhythm and normal heart sounds. Pulmonary/Chest: Effort normal and breath sounds normal. No respiratory distress. She has no wheezes. She has no rales. Abdominal: Soft. Bowel sounds are normal. She exhibits no distension. There is no tenderness. There is no rebound. Musculoskeletal: Normal range of motion. She exhibits no edema or tenderness. Neurological: She is alert and oriented to person, place, and time. Skin: Skin is warm. No rash noted. She is not diaphoretic. No erythema. Psychiatric: Affect and judgment normal. No visits with results within 30 Day(s) from this visit. Latest known visit with results is: Appointment on 09/16/2018 Component Date Value Ref Range Status - Radiology Result 09/16/2018 ACTIONABLE* Final Comment: This report contains an incidental finding. This is a new finding that is separate from the reason your provider ordered the imaging test. Because of this incidental finding, you may need another imaging test to evaluate it. Please contact your provider for the next steps. New medication(s) prescribed today: None. Counseling completed in adopting health behaviors such as avoiding excessive alcohol use, avoid tobacco use, improve nutrition, and engage in physical activities. Copy of written care plan, clinical summary, treatment plan, new medications, goals, and self management requirements were given to patient. ASSESSMENT/PLAN: 1. Solitary pulmonary nodule - ICD9: 793.11, ICD10: R91.1 (primary diagnosis) --Been followed by pulmonology this is likely benign she has a CT scan coming up in March 2. 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 During your visit today, we recorded the following information about you: Temperature Pulse Respiration Blood pressure 97.8 degrees 69/minute 12/minute 114/70 Weight Height 78.9 kg 1.6 m Thiago Hernandez MD 10/21/2018 10:28 AM Signed Pulmonary Consult Patient Name: Kyra Jo? ? PRIMARY CARE PHYSICIAN: Jared Marrero MD ? REASON FOR CONSULT: pulmonary nodule REQUESTING PHYSICIAN: Thiago eHrnandez* My final recommendations will be communicated to the requesting health care provider by way of the shared medical record for internal providers or letter via the [employer] for external providers.? CHIEF COMPLAINT: Pulmonary nodule HISTORY OF PRESENT ILLNESS: Kyra Jo is a 38 year old white woman with a past medical history significant for problems listed below seen in the office today for the above reason. She had a CT abdo/pelvis in Jul this year for pain abdomen. She was found to have a surgical issue and underwent appendectomy. On the CT abdo, she was found to have a small LLL nodule and so got a CT chest done, which confirmed the same and has been referred to us for the same. She denies any cardio-pulmonary symptoms with usual activities. She denies any unexplained fevers or chills or weight loss or loss of appetite. 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 and is on chemo; no other family history of cancers 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 - Sinus tachycardia DURING PAST SURGICAL HISTORY Procedure Laterality Date - APPENDECTOMY Right 08/19/2018 - ARTHROTOMY,OPEN REPAIR MENISCUS Left knee - DELIVERY ONLY 04-09-2004 , low cervical/ - DELIVERY ONLY 05/10/2005 , low cervical/bto - HYSTERECTOMY 05/2017 partial - HYSTERECTOMY HX - LIGATE FALLOPIAN TUBE 05/10/2005 Tubal ligation - LOW SKIN FACE EAR HND + 25SQ Left 2017 graft ear removal basal cell CA - MENISCAL REPAIR CECILIA,FRED,[id number] 11/29/2015 FAMILY HISTORY Problem Relation Age of Onset - Breast Cancer Mother 51 at age 51 Stage 4 - other (atrial fibrillation) Father 63 - other (heart attack) Paternal Grandfather 50 - other (fibroid tumor) Sister - other (endometriosis) Sister - other (Ovarian Cyst) Other Maternal Niece Social History Tobacco Use - Smoking status: Former Smoker Packs/day: 0.50 Years: 10.00 Pack years: 5.00 Types: Cigarettes Last attempt to quit: 2010 Years since quittin.3 - Smokeless tobacco: Former User Quit date: 02/17/2012 Substance Use Topics - Alcohol use: Yes Comment: Rarely - Drug use: No ALLERGIES: ALLERGIES No Known Allergies CURRENT OUTPATIENT MEDICATIONS: TURMERIC ORAL Take by mouth once daily. [place]-3 Fatty Acids 300 mg cap Take 1 capsule by mouth once daily. REVIEW OF SYSTEMS: HEENT: does have allergy issues and gets symptoms round the year; headaches and runny nose; better with allergy shots; RESPIRATORY: negative for cough, sputum production, hemoptysis, SOB, ANTON, wheezing, pleuritic chest pain CONSTITUTIONAL: Negative for weight loss or loss of appetite or unexplained fevers or chills or evening rise of temperature; denies any swollen lymph glands or abnormal swellings. CARDIOVASCULAR: negative for SOB, chest pain on exertion, PND, orthopnea, leg swelling or palpitations. GASTROINTESTINAL: pain abdomen on and off; negative for nausea, vomiting, pain abdomen, acid reflux issues, loose stools or constipation. No black stools; no difficulty swallowing or aspiration symptoms. Has hemorrhoids issue and did have blood in the stools. MUSCULOSKELETAL: negative for joint pain or joint swelling, back pain or muscle pain. NEUROLOGIC:Negative for focal numbness or weakness, headaches, dizziness or syncope. SKIN:Negative for lesions, rash, and itching. No new onset symptoms PSYCHIATRIC: Negative for sleep disturbance, mood disorder and recent psychosocial stressors HEMATOLOGIC/LYMPHATIC/I MMUNOLOGIC:Negative for cold or heat intolerance, polyuria, polydipsia and goiter. 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 PHYSICAL EXAM: BP 114/70 Pulse 69 Temp 97.8 Resp 12 Ht 5' 3 (1.60m) Wt 174 lb (78.9kg) SpO2 100[ra]% LMP 10/09/2012 BMI 30.83 kg/(m2). General appearance: Well appearing, alert, in no acute distress, well-hydrated, well nourished. Neck: no adenopathy; no JVD elevation HENT: External ears normal Eyes: no scleral icterus, PERRLA, EOMS, no conjunctivitis Nose/Sinuses: Nares normal. Septum midline. Mucosa normal. No drainage or sinus tenderness. Oropharynx: Lips, mucosa, and tongue normal, teeth and gums normal, oropharynx normal [place] Classification:Class I Respiratory: Lungs clear to auscultation. No wheezing, rhonchi, rales Cardiovascular: RRR without murmur, gallop, or rubs. No ectopy Gastroenterology: Inspection: Normal appearing abdomen and Tenderness: none Extremities: Normal, Warm, No cyanosis, no clubbing, No edema and Nontender Lymph nodes: no adenopathy DATA: Diagnostic tests reviewed for today's visit, films/specimens were personally reviewed by me: CT chest 08/2018: 1. ?7 mm pulmonary nodule at the cardiophrenic angle within the lingula. ?Given that this abuts the heart border percutaneous sampling would prove difficult. ?Recommend continued follow-up as detailed and the recommendations below or alternatively PET/CT. 2. ?Otherwise no acute process in the chest. CT abdo/ pelvis 07/2018: Left lower quadrant internal hernia with tapering of afferent and efferent segments of proximal and distal sigmoid colon at the hernia neck. ?While there is slight twisting of bowel and mesentery in this region concerning for an incomplete or partial volvulus, mild gaseous distention of the herniated mid sigmoid colon, and a moderate amount of formed stool throughout the more proximal colon implying some degree of chronic partial obstruction, there is no high-grade bowel obstruction or evidence of any complete acute volvulus per se at this time. Surgical consultation recommended, the timing of which should obviously take into account current clinical symptoms. ?Discussed with Dr. Sullivan at 8:42 pm on 08/14/[address] Elizondo. Pulmonary nodule. Incidental Finding: ?Follow-up for this incidentally detected lung nodule with PET/CT within [address] exam in 3 months is recommended. Migrated surgical clip abuts the cecum and appendix. ASSESSMENT: Kyra Jo is a 38 year old white woman with a past medical history significant for the above listed problems seen in the office today for evaluation of incidentally noted pulmonary nodule. 1. LLL 7 mm nodule, noted first in Jul 2018. Likely benign and differential would include old infectious disease vs inflammatory process or hamartoma. 2. Ex-minimal smoker 3. FH of breast cancer 4. Recent surgery for abdominal pain 5. History of fibroids and hysterectomy PLAN: - CT chest in 6 months time - to call us with any concerning symptoms - RTC in [address] chest is done I discussed the plan in detail with the patient and and explained all of the above. Thiago Hernandez MD Cc to Dr Dennise Hernandez MD 10/21/2018 10:26 AM Signed To call us if any of the symptoms mentioned below arise. - shortness of breath or chest pain on exertion - decreasing exercise tolerance - long-lasting cough or sputum production or coughing up blood - unexplained lower extremity swelling - unintentional weight loss or loss of appetite - unexplained fevers or chills - any other concerning symptoms Referring Provider: THIAGO HERNANDEZ [[id number]] Allergies As of Date: 10/21/2018 (No Known Allergies) Date Reviewed: 10/21/2018 Reviewed by: Thiago Hernandez - Fully Assessed Reason for Visit: Nodule [1379] Primary Visit Diagnosis:Solitary pulmonary nodule [R91.1] Other Visit Diagnoses:Obesity, Class I, BMI 30-34.9 [E66.9] Ex-smoker [Z87.891] Family history of malignant neoplasm of breast- mother [Z80.3] Lung nodules [R91.8] Order(s):CT CHEST WO IVCON [[id number]] Order #: [id number] FUTURE Prescriptions as of 10/21/2018 Sig: TURMERIC ORAL Take by mouth once daily. OMEGA-3 FATTY ACIDS 300 MG CA* Take 1 capsule by mouth once * Problem List As Of Date 10/21/2018 Noted Resolved Family history of malignant neoplasm of breast *INVALID FOR*08/07/2011 Mittelschmerz [N94.0] INVALID FOR*08/07/2011 ENDOMETRIOSIS NOS [N80.9] INVALID FOR* Unspecified symptom associated with female courtney*INVALID FOR*08/07/2011 Dysmenorrhea [N94.6] INVALID FOR*07/18/2016 Dyspareunia [[id number]] INVALID FOR*11/26/2017 Abdominal pain, right lower quadrant [R10.31] INVALID FOR*08/07/2011 Abdominal pain, left lower quadrant [R10.32] INVALID FOR*08/07/2011 Excessive or frequent menstruation [N92.0] INVALID FOR*08/07/2011 Mastodynia [N64.4] INVALID FOR*11/26/2017 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 Basal cell carcinoma- left ear [C44.91] INVALID FOR* More... status post hysterectomy - ovaries spared [Z90.*INVALID FOR* Lung nodules [R91.8] INVALID FOR* Incidental lung nodule, greater than or equal t*INVALID FOR* Intestinal hernia [K46.9] INVALID FOR* Volvulus of sigmoid colon (HCC) [K56.2] INVALID FOR* Volvulus (HCC) [K56.2] INVALID FOR*08/17/2018 Obesity, Class I, BMI 30-34.9 [E66.9] INVALID FOR* Solitary pulmonary nodule [R91.1] INVALID FOR* Ex-smoker [Z87.891] INVALID FOR* Other instructions from your clinician: To call us if any of the symptoms mentioned below arise. - shortness of breath or chest pain on exertion - decreasing exercise tolerance - long-lasting cough or sputum production or coughing up blood - unexplained lower extremity swelling - unintentional weight loss or loss of appetite - unexplained fevers or chills - any other concerning symptoms Disposition: Return in about 6 months (around 04/22/2019). Follow-up and Disposition History Recorded Encounter Status:Closed by THIAGO HERNANDEZ MD on 10/21/18 [facility] PROGRESSon 10-21-2018 PROGRESS HNO ID: [id number] Author: Thiago Hernandez Service: ? Author Type: Physician Type: Progress Notes Filed: 10/21/2018 10:28 AM Note Text: Pulmonary Consult Patient Name: Kyra Jo? ? PRIMARY CARE PHYSICIAN: Jared Marrero MD ? REASON FOR CONSULT: pulmonary nodule REQUESTING PHYSICIAN: Thiago Hernandez* My final recommendations will be communicated to the requesting health care provider by way of the shared medical record for internal providers or letter via the [place] [employer] for external providers.? CHIEF COMPLAINT: Pulmonary nodule HISTORY OF PRESENT ILLNESS: Kyra Jo is a 38 year old white woman with a past medical history significant for problems listed below seen in the office today for the above reason. She had a CT abdo/pelvis in Jul this year for pain abdomen. She was found to have a surgical issue and underwent appendectomy. On the CT abdo, she was found to have a small LLL nodule and so got a CT chest done, which confirmed the same and has been referred to us for the same. She denies any cardio-pulmonary symptoms with usual activities. She denies any unexplained fevers or chills or weight loss or loss of appetite. 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 and is on chemo; no other family history of cancers 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 - Sinus tachycardia DURING PAST SURGICAL HISTORY Procedure Laterality Date - APPENDECTOMY Right 08/19/2018 - ARTHROTOMY,OPEN REPAIR MENISCUS Left knee - DELIVERY ONLY 04-09-2004 , low cervical/ - DELIVERY ONLY 05/10/2005 , low cervical/bto - HYSTERECTOMY 05/2017 partial - HYSTERECTOMY HX - LIGATE FALLOPIAN TUBE 05/10/2005 Tubal ligation - LOW SKIN FACE EAR HND + 25SQ Left 2017 graft ear removal basal cell CA - MENISCAL REPAIR CECILIA,CD,[id number] 11/29/2015 FAMILY HISTORY Problem Relation Age of Onset - Breast Cancer Mother 51 at age 51 Stage 4 - other (atrial fibrillation) Father 63 - other (heart attack) Paternal Grandfather 50 - other (fibroid tumor) Sister - other (endometriosis) Sister - other (Ovarian Cyst) Other Maternal Niece Social History Tobacco Use - Smoking status: Former Smoker Packs/day: 0.50 Years: 10.00 Pack years: 5.00 Types: Cigarettes Last attempt to quit: 2010 Years since quittin.3 - Smokeless tobacco: Former User Quit date: 02/17/2012 Substance Use Topics - Alcohol use: Yes Comment: Rarely - Drug use: No ALLERGIES: ALLERGIES No Known Allergies CURRENT OUTPATIENT MEDICATIONS: TURMERIC ORAL Take by mouth once daily. [place]-3 Fatty Acids 300 mg cap Take 1 capsule by mouth once daily. REVIEW OF SYSTEMS: HEENT: does have allergy issues and gets symptoms round the year; headaches and runny nose; better with allergy shots; RESPIRATORY: negative for cough, sputum production, hemoptysis, SOB, ANTON, wheezing, pleuritic chest pain CONSTITUTIONAL: Negative for weight loss or loss of appetite or unexplained fevers or chills or evening rise of temperature; denies any swollen lymph glands or abnormal swellings. CARDIOVASCULAR: negative for SOB, chest pain on exertion, PND, orthopnea, leg swelling or palpitations. GASTROINTESTINAL: pain abdomen on and off; negative for nausea, vomiting, pain abdomen, acid reflux issues, loose stools or constipation. No black stools; no difficulty swallowing or aspiration symptoms. Has hemorrhoids issue and did have blood in the stools. MUSCULOSKELETAL: negative for joint pain or joint swelling, back pain or muscle pain. NEUROLOGIC:Negative for focal numbness or weakness, headaches, dizziness or syncope. SKIN:Negative for lesions, rash, and itching. No new onset symptoms PSYCHIATRIC: Negative for sleep disturbance, mood disorder and recent psychosocial stressors HEMATOLOGIC/LYMPHATIC/I MMUNOLOGIC:Negative for cold or heat intolerance, polyuria, polydipsia and goiter. 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 PHYSICAL EXAM: BP 114/70 Pulse 69 Temp 97.8 Resp 12 Ht 5' 3 (1.60m) Wt 174 lb (78.9kg) SpO2 100[ra]% LMP 10/09/2012 BMI 30.83 kg/(m2). General appearance: Well appearing, alert, in no acute distress, well-hydrated, well nourished. Neck: no adenopathy; no JVD elevation HENT: External ears normal Eyes: no scleral icterus, PERRLA, EOMS, no conjunctivitis Nose/Sinuses: Nares normal. Septum midline. Mucosa normal. No drainage or sinus tenderness. Oropharynx: Lips, mucosa, and tongue normal, teeth and gums normal, oropharynx normal [place] Classification:Class I Respiratory: Lungs clear to auscultation. No wheezing, rhonchi, rales Cardiovascular: RRR without murmur, gallop, or rubs. No ectopy Gastroenterology: Inspection: Normal appearing abdomen and Tenderness: none Extremities: Normal, Warm, No cyanosis, no clubbing, No edema and Nontender Lymph nodes: no adenopathy DATA: Diagnostic tests reviewed for today's visit, films/specimens were personally reviewed by me: CT chest 08/2018: 1. ?7 mm pulmonary nodule at the cardiophrenic angle within the lingula. ?Given that this abuts the heart border percutaneous sampling would prove difficult. ?Recommend continued follow-up as detailed and the recommendations below or alternatively PET/CT. 2. ?Otherwise no acute process in the chest. CT abdo/ pelvis 07/2018: Left lower quadrant internal hernia with tapering of afferent and efferent segments of proximal and distal sigmoid colon at the hernia neck. ?While there is slight twisting of bowel and mesentery in this region concerning for an incomplete or partial volvulus, mild gaseous distention of the herniated mid sigmoid colon, and a moderate amount of formed stool throughout the more proximal colon implying some degree of chronic partial obstruction, there is no high-grade bowel obstruction or evidence of any complete acute volvulus per se at this time. Surgical consultation recommended, the timing of which should obviously take into account current clinical symptoms. ?Discussed with Dr. Sullivan at 8:42 pm on 08/14/[address] Elizondo. Pulmonary nodule. Incidental Finding: ?Follow-up for this incidentally detected lung nodule with PET/CT within [address] exam in 3 months is recommended. Migrated surgical clip abuts the cecum and appendix. ASSESSMENT: Kyra Jo is a 38 year old white woman with a past medical history significant for the above listed problems seen in the office today for evaluation of incidentally noted pulmonary nodule. 1. LLL 7 mm nodule, noted first in Jul 2018. Likely benign and differential would include old infectious disease vs inflammatory process or hamartoma. 2. Ex-minimal smoker 3. FH of breast cancer 4. Recent surgery for abdominal pain 5. History of fibroids and hysterectomy PLAN: - CT chest in 6 months time - to call us with any concerning symptoms - RTC in [address] chest is done I discussed the plan in detail with the patient and and explained all of the above. Thiago Hernandez MD Cc to Dr Marrero [facility] Chart Updateon 10-19-2018 Chart Update Active Problems FHx: genetic disease carrier (V18.9) (Z84.81) FHx: kidney cancer (V16.51) (Z80.51) Uterine leiomyoma, unspecified location (218.9) (D25.9) Chart Update Progress Note Free Text_UH: Kyra Jo is a 37 year old woman with a personal history of uterine leiomyomas who was originally seen in the [facility] on 09/18/18 and underwent testing for the known familial mutation in the FH gene previously identified in her sister. Ms. Jo was at 50% risk to carry the same FH gene mutation. Her results were discussed by telephone and are summarized below. 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 SUMMARY: We discussed that Ms. 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 The primary concern for Ms. Jo at this time is a risk for kidney cancer. Approximately 15-20% of individuals with HLRCC develop renal tumors, including type 2 papillary, tubulo-papillary, collecting-duct carcinoma, and possibly Wilms tumor. Renal tumors in HLRCC are typically unilateral, solitary, and aggressive. Symptoms include hematuria, lower back pain, and a palpable mass, although some have no symptoms until the disease is advanced. Baseline abdominal CT scan with contrast or MRI is recommended to screen for renal tumors, and this imaging should continue every year. Early detection of kidney tumors in HLRCC is important because these tumors have an aggressive disease course. To detect very small tumors, a yearly MRI with 13 mm slices through the kidneys is recommended. Renal ultrasound (unless it is the only available imaging modality) is not recommended due to the low sensitivity of ultrasound in detecting small lesions. Nephron-sparing therapy is generally suggested for small renal tumors. This is especially important for patients with hereditary renal cancer that is associated with a predisposition to recurrent, multifocal lesions. Prompt surgical removal with wide surgical margins and consideration of retroperitoneal lymphadenectomy is advised. Total nephrectomy may be recommended if there is doubt that a partial nephrectomy would be curative. Neither radiofrequency ablation (RFA) nor cryotherapy for renal cancer is advised for individuals with HLRCC. She should speak to her primary care physician regarding annual screening for renal cancer. She can contact us if she has problems with obtaining this screening through her primary care physician. We also recommend a full skin examination every 12 years, with cutaneous leiomyomas examined by a truck unloader to evaluate for changes suggestive of leiomyosarcoma. Treatment options for cutaneous leiomyomas include, but are not limited to: surgical excision, cryoablation and/or lasers, and the use of medications to reduce pain (calcium channel blockers, alpha blockers, nitroglycerin, antidepressants, and antiepileptic drugs). Dermatology at can be contacted by calling [phone]. There is some evidence, although not yet conclusive, that mutations in the FH gene can increase the risks for paragangliomas and pheochromocytomas, but the association between the FH gene and pheochromocytomas has not been completely established. This uncertainty may be resolved as new information becomes available, and therefore it will be important for Ms. Jo to have follow up with genetics over time for updated screening and surveillance recommendations if she does have an FH mutation. She should contact us on a yearly basis to determine if any screening guidelines have changed. The FH gene is responsible for causing HLRCC and mutations in this gene are inherited in a dominant pattern. This means that an individual with a mutation has a 50% chance of passing the condition on to their offspring. Once a mutation is detected in an individual, it is possible to identify at-risk relatives who can pursue testing for this specific familial mutation. Many cases are inherited from a parent, but some cases can occur spontaneously (i.e., an individual with a mutation in the FH gene has parents who do not have it). Based on her positive genetic testing result, we recommend testing her children for this same FH gene mutation. Individuals with a mutation in the FH gene are also at risk to have children with a rare inborn error of metabolism, as they are all carriers of a condition called fumarase deficiency (also known as fumarate hydratase deficiency and fumaric aciduria). This is an autosomal recessive condition that results when an individual inherits a pathogenic FH mutation from each parent. Fumarase deficiency is an inborn error of metabolism that is characterized by rapidly progressive neurologic impairment, including hypotonia, seizures, and cerebral atrophy. Most survive only for a few months after . For there to be a risk to offspring of fumarate hydratase, both parents would both have to have a mutation in the FH gene; in such a case, the risk to offspring is 25%. This would potentially have implications for Ms. Jo children if they test positive for the FH gene mutation found in her. 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 Her son can consider testing at any time after 18 years of age. SUMMARY: 1. Ms. 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 2. Annual exams with dermatology recommended for an examination of her cutaneous leiomyomas. Rarely these can transform to leiomyosarcomas. 3. Annual renal MRI recommended. 4. Annual contact with genetics to discuss changes to screening recommendations. 5. Testing her children is recommended. 6. Ms. Jo should have annual screening for breast cancer based on her mothers diagnosis of breast cancer. This is unrelated to the FH gene mutation. In addition, her paternal first cousin has been found to have an ROSIE gene mutation, also associated with an increased risk for breast cancer. We have initiated insurance authorization for the familial ROSIE gene mutation and will contact Ms. Jo once approved. 7. Ms. Jo should contact us with questions or concerns related to the information discussed today. We can be reached by calling [phone]. Corrine Morrell MS Licensed Genetic Counselor [facility] Reviewed by: Marcy Perry MD, PhD Clinical School Counsellor Air Traffic Supervisorpaper cone grader and Genome Sciences and Pediatrics [facility]. Signatures Electronically signed by : Corrine Morrell MS; Oct 09 2018 12:53PM EST (Author) Electronically signed by : Marcy Perry MD, PhD; Oct 18 2018 11:09PM EST (Author) [facility] Chart Updateon 10-15-2018 Chart Update Active Problems FHx: genetic disease carrier (V18.9) (Z84.81) FHx: kidney cancer (V16.51) (Z80.51) Uterine leiomyoma, unspecified location (218.9) (D25.9) Chart Update Progress Note Free Text_: Phone call to [facility] [place] for peer to peer review of denial of testing for known familial mutation in the ROSIE gene. Spoke with Dr. Lloyd, who indicated that request was received for CPT 18676, but they were not certain which gene was to be tested. Reviewed that patient has a family history of early onset breast cancer in a paternal first cousin, who was found to have an ROSIE mutation on genetic testing. If Ms Jo is found to have the mutation, she would be eligible for increased breast surveillance. The denial was overturned and an approval for testing will be submitted. Patient can now have blood drawn for testing or if blood is already in the lab, the testing can begin. Signatures Marcy Perry MD, PhD Air Traffic Supervisorpaper cone grader and Pediatrics Electronically signed by : Marcy Perry MD, PhD; Oct 15 2018 2:17PM EST (Author) [facility] CNPNon 09-21-2018 [facility] Telephone ([facility]) KYRA JO ([id number]) 1980 F Date Time Provider Department 09/21/18 JARED MARRERO [facility] During your visit today, we recorded the following information about you: Nataliya Pearl Regulatory Leader 09/21/2018 11:02 AM Signed Order placed via [facility] online referrals portal for consult to pulmonary medicine. Referral # [id number] Nataliya Pearl Regulatory Leader 09/24/2018 8:51 AM Signed Michael, This e-mail is a confirmation that your patient listed below has been scheduled for an appointment with [facility] ?Pulmonology should you have any questions or concerns regarding this appointment please contact the appropriate office directly: Medical Records (Please Note) X Medical Records Are Not Required: Referring Office AND Specialist Are Both On [facility]. Medical Records Are Required: Fax Appropriate Records Including: Order, Last Office Note, AND Any Necessary Imaging/Labs/Etc. To: Additional Office Location Information AND Phone Numbers x [facility] - The Pulmonary [place] office is located on the 3rd floor, [address], in the Physician's office building. This building is the 4 story [facility] [employer] building across from [facility]. [address] [place] [address] Allergies As of Date: 09/21/2018 (No Known Allergies) Date Reviewed: 08/27/2018 Reviewed by: Lona Herrera - Fully Assessed Reason for Visit: pulmonology consult [Other] Reason For Visit History Recorded Prescriptions as of 09/21/2018 Sig: TURMERIC ORAL Take by mouth once daily. OMEGA-3 FATTY ACIDS 300 MG CA* Take by mouth. Problem List As Of Date 09/21/2018 Noted Resolved Family history of malignant neoplasm of breast *INVALID FOR*08/07/2011 Mittelschmerz [N94.0] INVALID FOR*08/07/2011 ENDOMETRIOSIS NOS [N80.9] INVALID FOR* Unspecified symptom associated with female courtney*INVALID FOR*08/07/2011 Dysmenorrhea [N94.6] INVALID FOR*07/18/2016 Dyspareunia [[id number]] INVALID FOR*11/26/2017 Abdominal pain, right lower quadrant [R10.31] INVALID FOR*08/07/2011 Abdominal pain, left lower quadrant [R10.32] INVALID FOR*08/07/2011 Excessive or frequent menstruation [N92.0] INVALID FOR*08/07/2011 Mastodynia [N64.4] INVALID FOR*11/26/2017 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 Basal cell carcinoma- left ear [C44.91] INVALID FOR* More... status post hysterectomy - ovaries spared [Z90.*INVALID FOR* Lung nodules [R91.8] INVALID FOR* Incidental lung nodule, greater than or equal t*INVALID FOR* Intestinal hernia [K46.9] INVALID FOR* Volvulus of sigmoid colon (HCC) [K56.2] INVALID FOR* Volvulus (HCC) [K56.2] INVALID FOR*08/17/2018 Encounter Status:Closed by NATALIYA HUSSEIN on 09/21/18 [facility] Juan 09-19-2018 [facility] Telephone ([facility]) KYRA JO ([id number]) 1980 F Date Time Provider Department 09/19/18 JARED MARRERO [facility] During your visit today, we recorded the following information about you: Tammy Denise Reg 09/21/2018 10:35 AM Signed Patient is aware. Tammy Denise Reg September 21, 2018 10:35 AM Allergies As of Date: 09/19/2018 (No Known Allergies) Date Reviewed: 08/27/2018 Reviewed by: Lona MobleyShaw HospitalJosue Herrera - Fully Assessed Reason for Visit: Consult [173] Reason For Visit History Recorded Primary Visit Diagnosis:Incidental lung nodule, greater than or equal to 8mm [R91.1] Order(s):CONSULT TO PULMONARY MEDICINE [[id number]] Order #: [id number]: [id number] Prescriptions as of 09/19/2018 Sig: TURMERIC ORAL Take by mouth once daily. OMEGA-3 FATTY ACIDS 300 MG CA* Take 1 capsule by mouth once * Problem List As Of Date 09/19/2018 Noted Resolved Family history of malignant neoplasm of breast *INVALID FOR*08/07/2011 Mittelschmerz [N94.0] INVALID FOR*08/07/2011 ENDOMETRIOSIS NOS [N80.9] INVALID FOR* Unspecified symptom associated with female courtney*INVALID FOR*08/07/2011 Dysmenorrhea [N94.6] INVALID FOR*07/18/2016 Dyspareunia [[id number]] INVALID FOR*11/26/2017 Abdominal pain, right lower quadrant [R10.31] INVALID FOR*08/07/2011 Abdominal pain, left lower quadrant [R10.32] INVALID FOR*08/07/2011 Excessive or frequent menstruation [N92.0] INVALID FOR*08/07/2011 Mastodynia [N64.4] INVALID FOR*11/26/2017 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 Basal cell carcinoma- left ear [C44.91] INVALID FOR* More... status post hysterectomy - ovaries spared [Z90.*INVALID FOR* Lung nodules [R91.8] INVALID FOR* Incidental lung nodule, greater than or equal t*INVALID FOR* Intestinal hernia [K46.9] INVALID FOR* Volvulus of sigmoid colon (HCC) [K56.2] INVALID FOR* Volvulus (HCC) [K56.2] INVALID FOR*08/17/2018 Encounter Status:Closed by JARED MARRERO on 09/19/18 [facility] CNOVon 08-27-2018 CNOV Office Visit (AGGENS 5) KYRA JO ([id number]) 1980 F Date Time Provider Department 08/27/18 3:30 PM NURSE NEIL AG ACC [id number] [id number] During your visit today, we recorded the following information about you: Pulse Respiration Blood pressure Weight 69/minute 20/minute 116/62 74.8 kg Height 1.6 m Lona Herrera APRN.CNP 08/27/2018 4:12 PM Signed Patient referred by: Self-follow up S/p diagnostic laparoscopy, laparoscopic appendectomy, and removal of surgical clip PAST?MEDICAL?HISTORY PAST MEDICAL HISTORY Diagnosis Date - Basal cell carcinoma 2016 ? ear - Dysthymic disorder OFF ZOLOFT SINCE ? Depression (non-psychotic) - Endometriosis, site unspecified ? ? Endometriosis - Family history of malignant neoplasm of breast ? ? MOTHER - Impingement syndrome of shoulder region ? ? left - Mittelschmerz ? - Sinus tachycardia ? ? DURING - Strain of trapezius muscle ? ? left ? ? PAST?SURGICAL?HISTORY PAST SURGICAL HISTORY Procedure Laterality Date - ARTHROTOMY,OPEN REPAIR MENISCUS ? ? ? Left knee - DELIVERY ONLY ? 04-09-2004 ? , low cervical/ - DELIVERY ONLY ? 05/10/2005 ? , low cervical/bto - HYSTERECTOMY ? 05/2017 ? partial - LIGATE FALLOPIAN TUBE ? 05/10/2005 ? Tubal ligation - LOW SKIN FACE EAR HND + 25SQ Left 2016 ? graft ear removal basal cell CA - MENISCAL REPAIR SYLeighann,FRED,[id number] ? 11/29/2015 ? ? FAMILY?HISTORY FAMILY HISTORY Problem Relation Age of Onset - Breast Cancer Mother 51 ? at age 51 Stage 4 - other (atrial fibrillation) Father 63 - other (heart attack) Paternal Grandfather 50 - other (fibroid tumor) Sister ? - other (endometriosis) Sister ? - other (Ovarian Cyst) Other ? ? Maternal Niece ? ? SOCIAL?HISTORY Social History Marital status: Spouse name: SUELLEN JO Years of education: 14 Number of children: 2 ? 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 Social History Main Topics Smoking status: Former Smoker Packs/day: 0.00 Years: 0.00 Smokeless tobacco: Former User Quit date: 02/17/2012 Alcohol use: Yes Comment: Rarely Drug use: No Sexual activity: Yes Partners with: Male control/protection: Tubal Ligation, IUD ? Other Topics Concern Caffeine Concern Not Asked Comment:none reported Special Diet Not Asked Comment:Good diet Exercise Yes Comment:Exercises 2-3 days/wk ? Current Meds CURRENT?MEDICATIONS HPI: This is a post operative visit. Ms. Jo reports feeling well, no pain, no nausea, back to work. REVIEW OF SYSTEMS: GENERAL: No weight loss, malaise or fevers GI: Negative for abdominal pain, nausea , vomiting, diarrhea, constipation and signs of jaundice Positive for none PHYSICAL EXAM: BP 116/62 (BP Site: Left Arm, BP Position: Sitting, BP Cuff Size: Large Adult) Pulse 69 Resp 20 Ht 160 cm (5' 3) Wt 74.8 kg (165 lb) LMP 10/09/2012 SpO2 98% BMI 29.23 kg/m? GENERAL APPEARANCE: Well appearing, alert, in no acute distress, well-hydrated, well nourished.. ABDOMEN: Normal abdominal exam, Abdomen soft, non-tender. Bowel sounds normal. No masses, organomegaly, Wound: Lap sites healed, dried skin glue starting to flake off. No bruising. NEURO: Alert, oriented x3, no asterixis, speech clear and articulate and HAJI DATA: Diagnostic tests reviewed for today's visit: Most recent labs Most recent imaging Pathology report reviewed Greater than 50% of the direct patient contact time was spent in counseling or coordination of care. ASSESSMENT / PLAN S/p diagnostic laparoscopy, laparoscopic appendectomy, and removal of surgical clip - Doing well post-operatively - Discussed continued lifting restriction for another 1-2 weeks of 10-15# - Discussed follow up with PCP for repeat CT scan to follow up on incidental findings of lung nodule. CT scan is scheduled 09/16/2018. - No need to follow-up in EGS clinic unless issues arise. Lona Herrera APRN.CNP Emergency General Surgery Lona Herrera APRN.CNP 08/27/2018 3:58 PM Signed Please follow up with scheduled CT scan as recommended (already scheduled). Referring Provider: JARED MARRERO [[id number]] Allergies As of Date: 08/27/2018 (No Known Allergies) Date Reviewed: 08/27/2018 Reviewed by: Lona (Lara) Kendell - Fully Assessed Reason for Visit: Post Op [174] Cmt: POST OP APPENDIX Primary Visit Diagnosis:Status post surgery [Z98.890] Prescriptions as of 08/27/2018 Sig: TURMERIC ORAL Take by mouth once daily. OMEGA-3 FATTY ACIDS 300 MG CA* Take by mouth. Problem List As Of Date 08/27/2018 Noted Resolved Family history of malignant neoplasm of breast *INVALID FOR*08/07/2011 Mittelschmerz [N94.0] INVALID FOR*08/07/2011 ENDOMETRIOSIS NOS [N80.9] INVALID FOR* Unspecified symptom associated with female courtney*INVALID FOR*08/07/2011 Dysmenorrhea [N94.6] INVALID FOR*07/18/2016 Dyspareunia [[id number]] INVALID FOR*11/26/2017 Abdominal pain, right lower quadrant [R10.31] INVALID FOR*08/07/2011 Abdominal pain, left lower quadrant [R10.32] INVALID FOR*08/07/2011 Excessive or frequent menstruation [N92.0] INVALID FOR*08/07/2011 Mastodynia [N64.4] INVALID FOR*11/26/2017 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 Basal cell carcinoma- left ear [C44.91] INVALID FOR* More... status post hysterectomy - ovaries spared [Z90.*INVALID FOR* Lung nodules [R91.8] INVALID FOR* Incidental lung nodule, greater than or equal t*INVALID FOR* Intestinal hernia [K46.9] INVALID FOR* Volvulus of sigmoid colon (HCC) [K56.2] INVALID FOR* Volvulus (HCC) [K56.2] INVALID FOR*08/17/2018 Other instructions from your clinician: Please follow up with scheduled CT scan as recommended (already scheduled). Disposition: Return if symptoms worsen or fail to improve. Follow-up and Disposition History Recorded Encounter Status:Closed by LNOA HERRERA on 08/27/18 [facility] PROGRESSon 08-27-2018 PROGRESS HNO ID: [id number] Author: Lona (Armature Bander) Kendell Service: (none) Author Type: Nurse Practitioner Type: Progress Notes Filed: 08/27/2018 4:12 PM Note Text: Patient referred by: Self-follow up S/p diagnostic laparoscopy, laparoscopic appendectomy, and removal of surgical clip PAST?MEDICAL?HISTORY PAST MEDICAL HISTORY Diagnosis Date - Basal cell carcinoma 2016 ? ear - Dysthymic disorder OFF ZOLOFT SINCE ? Depression (non-psychotic) - Endometriosis, site unspecified ? ? Endometriosis - Family history of malignant neoplasm of breast ? ? MOTHER - Impingement syndrome of shoulder region ? ? left - Mittelschmerz ? - Sinus tachycardia ? ? DURING - Strain of trapezius muscle ? ? left ? ? PAST?SURGICAL?HISTORY PAST SURGICAL HISTORY Procedure Laterality Date - ARTHROTOMY,OPEN REPAIR MENISCUS ? ? ? Left knee - DELIVERY ONLY ? 04-09-2004 ? , low cervical/ - DELIVERY ONLY ? 05/10/2005 ? , low cervical/bto - HYSTERECTOMY ? 05/2017 ? partial - LIGATE FALLOPIAN TUBE ? 05/10/2005 ? Tubal ligation - LOW SKIN FACE EAR HND + 25SQ Left 2016 ? graft ear removal basal cell CA - MENISCAL REPAIR SYS,CD,[id number] ? 11/29/2015 ? ? FAMILY?HISTORY FAMILY HISTORY Problem Relation Age of Onset - Breast Cancer Mother 51 ? at age 51 Stage 4 - other (atrial fibrillation) Father 63 - other (heart attack) Paternal Grandfather 50 - other (fibroid tumor) Sister ? - other (endometriosis) Sister ? - other (Ovarian Cyst) Other ? ? Maternal Niece ? ? SOCIAL?HISTORY Social History Marital status: Spouse name: SUELLEN JO Years of education: 14 Number of children: 2 ? 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 Social History Main Topics Smoking status: Former Smoker Packs/day: 0.00 Years: 0.00 Smokeless tobacco: Former User Quit date: 02/17/2012 Alcohol use: Yes Comment: Rarely Drug use: No Sexual activity: Yes Partners with: Male control/protection: Tubal Ligation, IUD ? Other Topics Concern Caffeine Concern Not Asked Comment:none reported Special Diet Not Asked Comment:Good diet Exercise Yes Comment:Exercises 2-3 days/wk ? Current Meds CURRENT?MEDICATIONS HPI: This is a post operative visit. Ms. Jo reports feeling well, no pain, no nausea, back to work. REVIEW OF SYSTEMS: GENERAL: No weight loss, malaise or fevers GI: Negative for abdominal pain, nausea , vomiting, diarrhea, constipation and signs of jaundice Positive for none PHYSICAL EXAM: BP 116/62 (BP Site: Left Arm, BP Position: Sitting, BP Cuff Size: Large Adult) Pulse 69 Resp 20 Ht 160 cm (5' 3) Wt 74.8 kg (165 lb) LMP 10/09/2012 SpO2 98% BMI 29.23 kg/m? GENERAL APPEARANCE: Well appearing, alert, in no acute distress, well-hydrated, well nourished.. ABDOMEN: Normal abdominal exam, Abdomen soft, non-tender. Bowel sounds normal. No masses, organomegaly, Wound: Lap sites healed, dried skin glue starting to flake off. No bruising. NEURO: Alert, oriented x3, no asterixis, speech clear and articulate and HAJI DATA: Diagnostic tests reviewed for today's visit: Most recent labs Most recent imaging Pathology report reviewed Greater than 50% of the direct patient contact time was spent in counseling or coordination of care. ASSESSMENT / PLAN S/p diagnostic laparoscopy, laparoscopic appendectomy, and removal of surgical clip - Doing well post-operatively - Discussed continued lifting restriction for another 1-2 weeks of 10-15# - Discussed follow up with PCP for repeat CT scan to follow up on incidental findings of lung nodule. CT scan is scheduled 09/16/2018. - No need to follow-up in EGS clinic unless issues arise. Lona Herrera APRN.[facility] Emergency General Surgery Normal [facility] 08-18-2018 LARAN Telephone ([place]) KYRA JO ([id number]) 1980 F Date Time Provider Department 08/18/18 WILEY OLIVARES During your visit today, we recorded the following information about you: Wiley Olivares MD 08/18/2018 1:18 PM Signed Called Mrs. Jo to discuss pathology results. Findings from the pathology report were reviewed with her. There was no acute or chronic appendicitis noted. The small bowel lesion was benign. She reports feeling better. She is eating and drinking well without any nausea or vomiting. Her pain is well-controlled and she will call to schedule a follow-up appointment. All questions were answered to her satisfaction. Wiley Olivares MD Allergies As of Date: 08/18/2018 (No Known Allergies) Date Reviewed: 08/17/2018 Reviewed by: Arlyn (Rn) ARACELI Spicer - Fully Assessed Reason for Visit: Results [95] Prescriptions as of 08/18/2018 Sig: TRAMADOL 50 MG TABLET Take 1 tablet by mouth every * TURMERIC ORAL Take by mouth once daily. OMEGA-3 FATTY ACIDS 300 MG CA* Take by mouth. Problem List As Of Date 08/18/2018 Noted Resolved Family history of malignant neoplasm of breast *INVALID FOR*08/07/2011 Mittelschmerz [N94.0] INVALID FOR*08/07/2011 ENDOMETRIOSIS NOS [N80.9] INVALID FOR* Unspecified symptom associated with female courtney*INVALID FOR*08/07/2011 Dysmenorrhea [N94.6] INVALID FOR*07/18/2016 Dyspareunia [XLX0214] INVALID FOR*11/26/2017 Abdominal pain, right lower quadrant [R10.31] INVALID FOR*08/07/2011 Abdominal pain, left lower quadrant [R10.32] INVALID FOR*08/07/2011 Excessive or frequent menstruation [N92.0] INVALID FOR*08/07/2011 Mastodynia [N64.4] INVALID FOR*11/26/2017 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 Basal cell carcinoma- left ear [C44.91] INVALID FOR* More... status post hysterectomy - ovaries spared [Z90.*INVALID FOR* Lung nodules [R91.8] INVALID FOR* Incidental lung nodule, greater than or equal t*INVALID FOR* Intestinal hernia [K46.9] INVALID FOR* Volvulus of sigmoid colon (HCC) [K56.2] INVALID FOR* Volvulus (HCC) [K56.2] INVALID FOR*08/17/2018 Encounter Status:Closed by WILEY OLIVARES MD on 08/18/18 [facility] CNPTOUTREACHokimberly 08-18-2018 [facility] Patient Outreach ([facility]) KYRA JO ([id number]) 1980 F Date Time Provider Department 08/18/18 MELLISA SALOMON) [facility] During your visit today, we recorded the following information about you: Mellisa Salomon LPN 08/18/2018 11:01 AM Signed TRANSITION CARE MANAGEMENT (TCM) INITIAL CONTACT Marketing Operations Specialist Outreach Provider Action/FYI: Initial contact with patient post discharge, spoke to patient. Patient identified by name and . TRANSITION CARE MANAGEMENT INITIAL OUTREACH DOCUMENTATION: Date of Outreach: 08/18/2018 Outreach Attempt 1: Contact Made Date of Discharge 08/17/2018 Some recent data might be hidden SUMMARY: -Pt discharged from [facility] on 08/17/18. -Admitted for: LAPAROSCOPY DIAGNOSTIC Do you have a hospital follow up appointment with your PCP? No, will follow up with surgeon. MEDICATIONS: Many patients have questions or concerns about their medications once they are home. Were you prescribed any new medications? If yes, what are those medications? Tramadol HCL 50 mg PO Q 6 hrs PRN Patient denies any questions or concerns at this time. Mellisa Salomon LPN 08/18/2018 10:59 AM Information taken from discharge summary: Linked Episodes LAPAROSCOPY DIAGNOSTIC Noted 08/16/2018 Hospital Problem List Volvulus (HCC) Resolved Care Timeline 08/16? Admitted from ED 08/17? Discharged 1314 Discharge Home ? AVS 1 IP After Visit Summary (Printed 08/17/2018) 2 IP After Visit Summary (Printed 08/16/2018) ? Follow-Ups 1 Follow up with Jared Marrero MD (Family Practice) 2 Follow up with Wiley Olivares MD (General Surgery) 3 Medication List at Discharge omega-3 fatty acids 300 mg ORAL tramadol HCl 50 mg ORAL EVERY 6 HOURS NEEDED turmeric ORAL DAILY Allergies As of Date: 08/18/2018 (No Known Allergies) Date Reviewed: 08/17/2018 Reviewed by: Arlyn (Rn) ARACELI Spicer - Fully Assessed Reason for Visit: Transition Of Care [4074] Cmt: TCM follow up [facility] 08/17/18 Prescriptions as of 08/18/2018 Sig: TRAMADOL 50 MG TABLET Take 1 tablet by mouth every * TURMERIC ORAL Take by mouth once daily. OMEGA-3 FATTY ACIDS 300 MG CA* Take by mouth. Problem List As Of Date 08/18/2018 Noted Resolved Family history of malignant neoplasm of breast *INVALID FOR*08/07/2011 Mittelschmerz [N94.0] INVALID FOR*08/07/2011 ENDOMETRIOSIS NOS [N80.9] INVALID FOR* Unspecified symptom associated with female courtney*INVALID FOR*08/07/2011 Dysmenorrhea [N94.6] INVALID FOR*07/18/2016 Dyspareunia [[id number]] INVALID FOR*11/26/2017 Abdominal pain, right lower quadrant [R10.31] INVALID FOR*08/07/2011 Abdominal pain, left lower quadrant [R10.32] INVALID FOR*08/07/2011 Excessive or frequent menstruation [N92.0] INVALID FOR*08/07/2011 Mastodynia [N64.4] INVALID FOR*11/26/2017 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 Basal cell carcinoma- left ear [C44.91] INVALID FOR* More... status post hysterectomy - ovaries spared [Z90.*INVALID FOR* Lung nodules [R91.8] INVALID FOR* Incidental lung nodule, greater than or equal t*INVALID FOR* Intestinal hernia [K46.9] INVALID FOR* Volvulus of sigmoid colon (HCC) [K56.2] INVALID FOR* Volvulus (HCC) [K56.2] INVALID FOR*08/17/2018 Encounter Status:Closed by MELLISA SALOMON LPN on 08/18/18 [facility] PROGRESSon 08-18-2018 PROGRESS HNO ID: [id number] Author: Mellisa Salomon Service: (none) Author Type: LICENSED NURSE Type: Progress Notes Filed: 08/18/2018 11:01 AM Note Text: TRANSITION CARE MANAGEMENT (TCM) INITIAL CONTACT Marketing Operations Specialist Outreach Provider Action/FYI: Initial contact with patient post discharge, spoke to patient. Patient identified by name and . TRANSITION CARE MANAGEMENT INITIAL OUTREACH DOCUMENTATION: Date of Outreach: 08/18/2018 Outreach Attempt 1: Contact Made Date of Discharge 08/17/2018 Some recent data might be hidden SUMMARY: -Pt discharged from [facility] on 08/17/18. -Admitted for: LAPAROSCOPY DIAGNOSTIC Do you have a hospital follow up appointment with your PCP? No, will follow up with surgeon. MEDICATIONS: Many patients have questions or concerns about their medications once they are home. Were you prescribed any new medications? If yes, what are those medications? Tramadol HCL 50 mg PO Q 6 hrs PRN Patient denies any questions or concerns at this time. Mellisa Salomon LPN 08/18/2018 10:59 AM Information taken from discharge summary: Linked Episodes LAPAROSCOPY DIAGNOSTIC Noted 08/16/2018 Hospital Problem List Volvulus (HCC) Resolved Care Timeline 08/16? Admitted from ED 08/17? Discharged 1314 Discharge Home ? AVS 1 IP After Visit Summary (Printed 08/17/2018) 2 IP After Visit Summary (Printed 08/16/2018) ? Follow-Ups 1 Follow up with Jared Marrero MD (Family Practice) 2 Follow up with Wiley Olivares MD (General Surgery) 3 Medication List at Discharge omega-3 fatty acids 300 mg ORAL tramadol HCl 50 mg ORAL EVERY 6 HOURS NEEDED turmeric ORAL DAILY Normal [facility] CNDSon 08-17-2018 CNDS HNO ID: [id number] Author: Lona Herrera Service: General Surgery Author Type: Nurse Practitioner Type: Discharge Summaries Filed: 08/17/2018 10:20 AM Note Text: Attestation signed by Kelly Floyd at 08/17/2018 10:38 AM Kelly Floyd MD August 17, 2018 DISCHARGE SUMMARY PATIENT NAME: Kyra Jo Code Status: Not on file Highest Readmission Risk Score: 10 The 30 day readmissions risk score is derived from an internally validated risk model which evaluates patient level characteristics, utilization history, medication orders and lab results up until the day of discharge. Patients with a score of 40 or above are considered highest risk for readmission. Specific patient level drivers will be listed at the bottom of the summary. Admission Information Admission Information ADMIT DATE: 08/16/2018 DISCHARGE DATE: 08/17/2018 MY DOCTORS AND MEDICAL TEAM: My Main Hospital Doctor: No att. providers found Primary Care Provider: Jared Marrero MD My Medical Team Members: MY CONDITION AT DISCHARGE: Stable REASON I WAS IN THE HOSPITAL: Right flank and RLQ pain, CT scan of the abdomen and pelvis that showed a possible small bowel obstruction versus volvulus versus internal hernia. Post-operative diagnosis: Chronic appendicitis with removal of surgical clip. SUMMARY OF WHAT HAPPENED WHILE I WAS IN THE HOSPITAL: Mr. Jo presented with right and RLQ pain since May 2018. Seen by PCP on 07/13/2018, CT ordered but not done until week of admission d/t insurance reasons. CT scan of the abdomen and pelvis that showed a possible small bowel obstruction versus volvulus versus internal hernia. Due to clinical symptoms and imaging, pt elected to proceed with surgery for diagnostic laparotomy. On 08/16/2018, Dr. Ashley Olivares did a diagnostic laparoscopy, laparoscopic appendectomy, and removal of surgical clip. Ms. Jo recovered on a routine surgical floor. Upon assessment on POD#1: 08/17/2018, Ms. Jo was feeling well, pain controlled, diet advanced to regular foods and tolerating without nausea. Ms. Jo is stable for discharge on 08/17/2018 and is aware to follow up at the EGS/surgical clinic in 2-3 weeks. An incidental lung nodule was noted on CT imaging, discussed need for follow up with pt. She understands need for follow-up and will do so with PCP.? OTHER PROBLEMS/DIAGNOSIS: Active Problems: * No active hospital problems. * Resolved Problems: Volvulus (HCC) OPERATIONS PERFORMED WHILE IN THE HOSPITAL: 08/16/2018, Dr. Ashley Olivares did a diagnostic laparoscopy, laparoscopic appendectomy, and removal of surgical clip. IMPORTANT TEST/PROCEDURES: No procedures performed TEST RESULTS NOT AVAILABLE AT THIS TIME: The plan for following up on pending results below is to be reviewed at surgical follow up visit Pathology results Discharge Disposition Discharge Disposition: Home With Self Care Activity When You Leave the Hospital Lifting is restricted to: 10-15 lbs for 4 weeks May use stairs No baths or showers for: Avoid tub baths, hot tubs or swimming pools for 2 weeks. You may shower, clean incisions with soap and water and dry completely. No driving for: Once completely off narcotics and able to react appropriately if required to turn quickly to stop suddenly. No prolonged bedrest, longer than 8 hours in a 24 hour period Other: Please remove Scopolamine patch within 2 days (effective for a total of 72 hours) Resume pre-hospital activity Diet Instructions Drink 6 to 8 glasses of fluids per day Regular For Pain When You Leave the Hospital If you become constipated, you may use any hfqd-jpm-xxzqgvf treatment such as Milk of Magnesia, Sennakot, Prune Juice, Suppositories, etc. in addition to the stool softener/fiber supplement No alcohol or driving while on pain medication Use acetaminophen (Tylenol) as recommended on the bottle Use ibuprofen (Motrin, Advil) as recommended on the bottle Use the dispensed medication (see prescription) You should use an tjaf-txe-bdlzotu stool softener (Docusate sodium) and/or a fiber supplement (Metamucil, Fiber Con) every day while taking prescribed pain medication Wound/Surgical Site Care Apply ice packs as needed It is normal to have swelling, mild bruising, blood on the steri-strips, numbness and firmness around the incision Leave open to air Your incision has skin glue. It will peel off on its own. It can get wet Steri-strips will start to lift off on the edges. Do not pull them off. You can cut/trim edges as needed. Eventually the skin strips will come off on their own. Call Your Doctor If There is severe pain at the operative site You have persistent nausea/vomiting over 24 hours You have redness, swelling, pus or drainage from the wound Your temperature is greater than 101F Follow Up Appointments Follow-Up Appointment When: In 2 weeks Patient/Parents to call for appointment?: Yes Wiley Olivares [phone] [address] [facility] [address] [facility] [address] PCP Requested Referral Additional Provider to Provider Information: No notes on file Transitions of Care Critical Issues: None LABS AND PROCEDURES PENDING AT DISCHARGE: Pathology Results (to be discussed at post-surgical visit) FOLLOW-UP APPOINTMENTS ALREADY SCHEDULED WITH A [facility] PROVIDER: Future Appointments Date Time Provider Department Center 11/27/2018 10:00 AM Jared Marrero [facility] ALLERGIES No Known Allergies DISCHARGE MEDICATION: Current Discharge Medication List START taking these medications traMADol (ULTRAM) 50 mg Take 50 mg by mouth every 6 hours as needed. Qty: 20 tablet Refills: 0 Associated Diagnoses:S/P laparoscopic appendectomy CONTINUE these medications which have NOT CHANGED TURMERIC ORAL Take by mouth once daily. [place]-3 Fatty Acids 300 mg cap Take by mouth. ? Exam: GENERAL: No distress, Alert NEURO: AANDOx3, CN II-XII grossly intact HEENT: normocephalic, atraumatic LUNGS: Unlabored breathing on room air CARDIAC: Regular rate and rhythm as above ABDOMEN: Soft, TTP near lap sites, non-distended EXTREMITIES: HAJI, No deformities, No edema SKIN: Skin color, texture, turgor normal, No rashes or lesions WOUND: Lap sites with glue C/D/I without erythema, minimal bruising The patient's risk for 30-day readmission is determined using the following contributing factors: Pt variables contributing to increased readmission risk: 9 Most Recent BUN Result 6 Active Medication Orders 2 Number of Previous ED Visits (6 mos.) 1 Previous ED Visit (6 mos.)? 1 Insurance - Private Coverage 1 Discharge Disposition - Home 1 Active Anticoagulant TIME OF CARE: Discharge Management: I personally spent greater than 30 minutes involved in the discharge management of this patient. SIGNATURE: Lona Herrera APRN.INVOICE CONTROL CLERK PAGER/CONTACT #: See pager DATE: August 17, 2018 TIME: 10:19 AM Emergency General Surgery Service Pager: For questions or concerns Mon-Fri 6a-5p please page [phone]. After 5pm and on Weekends and Holidays, please page [phone] if in ICU or [phone] if on RNF. [facility] PLAN OF CAREon 08-17-2018 PLAN OF CARE HNO ID: [id number] Author: Emilia Rosa ([employer]) Service: (none) Author Type: (none) Type: Plan of Care Filed: 08/17/2018 1:57 PM Note Text: PHARMACY BEDSIDE DELIVERY SERVICE Patient Name: Kyra Jo The marked outpatient medications were Filled at: [place] and delivered to the patient's bedside to PATIENT AND , ARACELI SANTACRUZ PRESENT [facility]LL Medication List START taking these medications traMADol 50 mg tablet Commonly known as: ULTRAM Take 1 tablet by mouth every 6 hours as needed for up to 5 days. CONTINUE taking these medications [place]-3 Fatty Acids 300 mg Cap TURMERIC ORAL You might also be taking other medications not listed above. If you have questions about any of your other medications, talk to the person who prescribed them or your Primary Care Provider. Emilia Rosa ([employer]) PHONE:Extension [phone], or [phone]. August 17, 2018 1:56 PM [facility] PLAN OF CARE HNO ID: [id number] Author: Emilia Rosa ([employer]) Service: (none) Author Type: (none) Type: Plan of Care Filed: 08/17/2018 11:54 AM Note Text: Pharmacy Discharge Medication Service: This patient has elected to receive their discharge prescriptions through the [facility] Bedside Prescription Delivery program. The prescriptions are currently being processed. A follow-up note will be entered once the prescriptions have been filled and delivered to the patient. Please contact me with any questions or updates to the patient's discharge medications. Emilia Rosa ([employer]) DCT Contact Info: Extension [phone], or [phone]. Normal [facility] PLAN OF CARE HNO ID: [id number] Author: Emilia Rosa ([employer]) Service: (none) Author Type: (none) Type: Plan of Care Filed: 08/17/2018 11:54 AM Note Text: [employer]ER BEDSIDE DELIVERY SURVEY 1. Patient to use [facility] Bedside Delivery - YES Insurance Information as follows: 2. Insurance card on file - YES 3. Credit card for payment - N/A Ultram 50 mg, copay 1.25$ Contact Emilia at [phone] with questions prior to discharge Normal [facility] PROGRESSon 08-17-2018 PROGRESS HNO ID: [id number] Author: Nidhi Burden Service: General Surgery Author Type: Nurse Practitioner Type: Progress Notes Filed: 08/17/2018 10:18 AM Note Text: Emergency General Surgery Progress Note SERVICE DATE: 08/17/2018 Service Time: 0620 SUBJECTIVE: Ms. Jo reports feeling much better this morning. States she is having abdominal pain but relates this pain to the surgery. Denies c/o nausea or vomiting this morning. Denies flatus or BM. Ambulating syed frequently Tolerating diet DIET REGULAR Nausea No Emesis No Flatus No Bowel movement No Pain Controlled Yes Ambulating Yes OBJECTIVE: Vitals: Temp (24hrs), Av.7 ?C (98 ?F), Min:36.4 ?C (97.5 ?F), Max:36.8 ?C (98.2 ?F) BP 101/62 Pulse (!) 49 Temp 36.4 ?C (97.5 ?F) (Oral) Resp 18 Ht 160 cm (5' 3) Wt 78.2 kg (172 lb 6.4 oz) LMP 10/09/2012 SpO2 100% BMI 30.54 kg/m? O2 Therapy: Room Air IANDO: Date 08/16/18 07 - 08/17/18 0659 08/17/18 07 - 08/18/18 0659 Shift 1671-6758 1668-8206 4026-3494 24 Hour Total 5384-6261 0052-0675 0565-5825 24 Hour Total I N T A K E IV 1999 1999 LR 900 900 OR Crystalloid intake (mL) 1100 1100 Shift Total 1999 1999 O U T P U T Urine 550 1200 1750 Void (ml) 550 1200 1750 Blood 10 10 Estimated Blood loss 10 10 Shift Total 560 1200 1760 Weight (kg) 74.8 78.2 78.2 78.2 78.2 78.2 78.2 78.2 MEDICATIONS Current Facility-Administered Medications Medication Dose Route Frequency - traMADol 50-100 mg tab(s) (ULTRAM) 50-100 mg ORAL q 6 H PRN - enoxaparin 40 mg injection (LOVENOX) 40 mg SUBCUTANEOUS DAILY - ondansetron 4 mg tab(s) (ZOFRAN) 4 mg ORAL q 6 H PRN Or - ondansetron (PF) 4 mg injection (ZOFRAN) 4 mg INTRAVENOUS q 6 H PRN - acetaminophen 975 mg tab(s) (TYLENOL) 975 mg ORAL q 6 H - scopolamine 1 mg over 3 days 1 Patch (TRANSDERM-SCOP) 1 Patch TRANSDERMAL q 72 HR And - scopolamine - VERIFY patch OTHER q 8 H Labs: Recent Labs 08/16/18 1140 NA 142 K 3.9 CHLOR 105 CO2 28 BUN 9 CREAT 0.68 GLUC 109* ANION 13 CA 9.5 ALB 4.1 AST 16 ALT 18 ALKPHOS 50 TBILI 0.4 WBC 4.8 HB 14.0 HCT 41.8 PLT 246 LACT 0.9 Exam: GENERAL: No distress, Alert NEURO: AANDOx3, CN II-XII grossly intact HEENT: normocephalic, atraumatic LUNGS: Unlabored breathing on room air CARDIAC: Regular rate and rhythm as above ABDOMEN: Soft, TTP near lap sites, non-distended EXTREMITIES: HAJI, No deformities, No edema SKIN: Skin color, texture, turgor normal, No rashes or lesions WOUND: Lap sites with glue C/D/I without erythema, minimal bruising ASSESSMENT AND PLAN: There are no active hospital problems to display for this patient. 38 year old female s/p Diagnostic laparoscopy, laparoscopic appendectomy, removal of surgical clip 08/16 -regular diet -pain/nausea control: ultram prn/scopolamine patch -VTE ppx: Lovenox, IPCs, encourage ambulation -discharge home this morning if tolerating breakfast Assessment and plan discussed with attending: Dr. Shore SIGNATURE: Nidhi Burden APRN.CNP PATIENT NAME: Kyra Jo DATE: August 18, 2018 TIME: 10:10 AM Pager: see below Emergency General Surgery Service Pager: For questions or concerns Mon-Fri 6a-5p please page [phone]. After 5pm and on Weekends and Holidays, please page [phone] if in ICU or [phone] if on RNF. Normal [facility] ANES PREOPon 08-16-2018 ANES PREOP HNO ID: [id number] Author: Pedro Bran Service: Anesthesiology Author Type: Physician Type: Anesthesia PreOp Filed: 08/16/2018 4:08 PM Note Text: ANESTHESIOLOGY DAY OF SURGERY NOTE SERVICE DATE: 08/16/2018 SERVICE TIME: 4:07 PM : 1980 Procedure(s) (LRB): LAPAROSCOPY DIAGNOSTIC (Bilateral) Surgeon(s): Wiley Olivares Estimated body mass index is 29.23 kg/m? as calculated from the following: Height as of this encounter: 160 cm (5' 3). Weight as of this encounter: 74.8 kg (165 lb). Most recent hematocrit and potassium results: Hematocrit 41.8 08/16/2018 Potassium 3.9 08/16/2018 ANES DOS/PREOP NOTE: Vitals: 08/16/18 1413 08/16/18 1416 08/16/18 1538 BP: 111/64 115/72 Pulse: 80 76 Resp: 18 16 Temp: 36.8 ?C (98.2 ?F) TempSrc: Oral SpO2: 100% 99% Weight: 74.8 kg (165 lb) Height: 160 cm (5' 3) ACTIVE PROBLEM LIST Endometriosis, Site Unspecified Tietze's Disease Family history of malignant neoplasm of breast- mother Seasonal Allergic Rhinitis Basal cell carcinoma- left ear status post hysterectomy - ovaries spared Lung Nodules Incidental Lung Nodule, Greater Than Or Equal to 8mm Intestinal Hernia Volvulus of Sigmoid Colon (Hcc) PAST MEDICAL HISTORY Diagnosis Date - Basal cell carcinoma 2017 ear - Dysthymic disorder OFF ZOLOFT SINCE Depression (non-psychotic) - Endometriosis, site unspecified Endometriosis - Family history of malignant neoplasm of breast MOTHER - 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 - Sinus tachycardia DURING PAST SURGICAL HISTORY Procedure Laterality Date - ARTHROTOMY,OPEN REPAIR MENISCUS Left knee - DELIVERY ONLY 04-09-2004 , low cervical/ - DELIVERY ONLY 05/10/2005 , low cervical/bto - HYSTERECTOMY 05/2017 partial - HYSTERECTOMY HX - LIGATE FALLOPIAN TUBE 05/10/2005 Tubal ligation - LOW SKIN FACE EAR HND + 25SQ Left 2017 graft ear removal basal cell CA - MENISCAL REPAIR SYS,[id number] 11/29/2015 FAMILY HISTORY Problem Relation Age of Onset - Breast Cancer Mother 51 at age 51 Stage 4 - other (atrial fibrillation) Father 63 - other (heart attack) Paternal Grandfather 50 - other (fibroid tumor) Sister - other (endometriosis) Sister - other (Ovarian Cyst) Other Maternal Niece Social History: Social History Substance Use Topics - Smoking status: Former Smoker - Smokeless tobacco: Former User Quit date: 02/17/2012 - Alcohol use Yes Comment: Rarely No current facility-administered medications on file prior to encounter. Current Outpatient Prescriptions on File Prior to Encounter: TURMERIC ORAL Take by mouth once daily. [place]-3 Fatty Acids 300 mg cap Take by mouth. No current facility-administered medications for this encounter. Allergies: ALLERGIES No Known Allergies DOS EXAM: Adequate NPO status: Yes Anesthetic risks, benefits, alternatives, personnel and consent discussed: Yes Patient agrees to proceed: Yes Previous Anesthesia: No history of adverse event. Airway Assessment: MP 2; Neck ROM: Full ROM without neurologic symptoms; Airway Evaluation: No significant abnormalities Symptoms of Sleep Apnea: None Dentition: Teeth intact Additional Physical Exam: Lungs: Patient health status unchanged since recent history and physical. See history and physical for exam findings. Cardiac: Patient health status unchanged since recent history and physical. See history and physical for exam findings. Additional Pertinent Findings: N/A Blood Products: Not anticipated for this procedure. Anesthetic Plan: General, Standard ASA Monitors and rapid sequence induction for presumed full stomach Pain Management Plan: Parenteral or Oral ASA Class: 2E Other Medical Problems: None Chronic Beta Eileen medication administered within 24 hours: N/A I have interviewed and examined the patient. I have reviewed the medical record and/or the pre-anesthesia evaluation, pertinent labs, and test results. Significant changes in the patient's condition since the History and Physical, not otherwise documented in primary service progress notes: No This contains updated information obtained within 48 hours of Surgery/Procedure. SIGNATURE: Pedro Bran MD PATIENT NAME: Kyra Jo DATE: August 16, 2018 TIME: 4:07 PM CSN: [id number] Normal [facility] Comprehensive Panelon 2018 Albumin [Mass/Vol] 4.1 g/dL Normal 3.4-5.0 [facility] Comment on above: Performed By: #### M P14 #### [facility] [address] [place] [address] ALP [Catalytic activity/Vol] 50 U/L Normal 46-116 [facility] Comment on above: Performed By: #### M P14 #### [place] [address] ALT-SGPT Blood 18 U/L Normal 12-78 [facility] Comment on above: Performed By: #### M P14 #### [place] [address] AST-SGOT Blood 16 U/L Normal 15-46 [facility] Comment on above: Performed By: #### M P14 #### [place] [address] Bilirubin Ql (U) 0.4 mg/dL Normal 0.2-1.0 [facility] Comment on above: Performed By: #### M P14 #### [place] [address] Protein [Mass/Vol] 7.6 g/dL Normal 6.4-8.2 [facility] Comment on above: Performed By: #### M P14 #### [facility] [address] [address] Anion gap [Moles/Vol] 13 mmol/L Normal 8-16 [facility] Comment on above: Performed By: #### M P14 #### [place] [address] Calcium [Mass/Vol] 9.5 mg/dL Normal 8.5-10.1 [facility] Comment on above: Performed By: #### M P14 #### [facility] [address] [address] Chloride [Moles/Vol] 105 mmol/L Normal 98-107 [facility] Comment on above: Performed By: #### M P14 #### [facility] [address] [address] CO2 Blood 28 mEq/L Normal 21-32 [facility] Comment on above: Performed By: #### M P14 #### [facility] [address] [address] Creatinine [Mass/Vol] 0.68 mg/dL Normal 0.51-0.95 [facility] Comment on above: Performed By: #### M P14 #### [facility] [address] [address] Glucose [Mass/Vol] 109 mg/dL High 70-99 [facility] Comment on above: Performed By: #### M P14 #### [place] [address] Potassium [Moles/Vol] 3.9 mmol/L Normal 3.5-5.1 [facility] Comment on above: Performed By: #### M P14 #### [place] [address] Sodium [Moles/Vol] 142 mmol/L Normal 136-145 [facility] Comment on above: Performed By: #### M P14 #### [place] [address] Urea nitrogen [Mass/Vol] 9 mg/dL Normal 7-18 [facility] Comment on above: Performed By: #### M P14 #### [facility] [address] [address] ED NOTEon 08-16-2018 ED NOTE HNO ID: [id number] Author: Jennifer MobleyRn) ARACELI Loya Service: Emergency Medicine Author Type: Registered Nurse Type: ED Notes Filed: 08/16/2018 3:40 PM Note Text: Dr. Ramachandran at bedside. Normal [facility] ED NOTE HNO ID: [id number] Author: Jennifer MobleyRn) ARACELI Loya Service: Emergency Medicine Author Type: Registered Nurse Type: ED Notes Filed: 08/16/2018 2:27 PM Note Text: Surgery at bedside [facility] ED NOTE HNO ID: [id number] Author: Olivia MobleyRnJosue Davis RN Service: (none) Author Type: Registered Nurse Type: ED Notes Filed: 08/16/2018 2:12 PM Note Text: Bed: 42-ED Expected date: 08/16/18 Expected time: 12:28 PM Means of arrival: [facility] Comments: [place] transfer [facility] ED NOTE HNO ID: [id number] Author: Miesha MobleyRnJosue Cha RN Service: Emergency Medicine Author Type: Registered Nurse Type: ED Notes Filed: 08/16/2018 1:48 PM Note Text: Transfer to ED Main campus cond stable belongings with pt Iv site intact [facility] given bedside report Nausea resolved minimal pain at rest 5/10 when moving family at bedside, pt reassured at transfer [facility] ED NOTE HNO ID: [id number] Author: Miesha Cha RN Service: Emergency Medicine Author Type: Registered Nurse Type: ED Notes Filed: 08/16/2018 1:41 PM Note Text: [facility] given report all belongings with pt Normal [facility] ED NOTE HNO ID: [id number] Author: Miesha Cha RN Service: Emergency Medicine Author Type: Registered Nurse Type: ED Notes Filed: 08/16/2018 12:42 PM Note Text: Updated plan of care and transfer pain improved after medication, family at bedside side rails up call light near [facility] notified [facility] ED NOTE HNO ID: [id number] Author: Miesha Cha RN Service: Emergency Medicine Author Type: Registered Nurse Type: ED Notes Filed: 08/16/2018 12:11 PM Note Text: Surgery consult and plan for transfer [facility] main ED to ED [facility] ED NOTE HNO ID: [id number] Author: Miehsa Cha RN Service: Emergency Medicine Author Type: Registered Nurse Type: ED Notes Filed: 08/16/2018 11:23 AM Note Text: Afebrile non toxic appearing 38 yr female with increased abd pain over [address] Shows 3 hernias Normal [facility] ED PROV NOTEon 08-16-2018 ED PROV NOTE HNO ID: [id number] Author: Nichole Davis MD Service: Emergency Medicine Author Type: Physician Type: ED Provider Notes Filed: 08/16/2018 3:26 PM Note Text: ED Provider Note Patient Name: Kyra Jo SERVICE DATE: 08/16/18 History Patient presents with: Abdominal Pain: pt from [place] ER; had Abd CT scan and sent here for surgery consult. HPI The patient has approximately a month of worsening abdominal pain that's been intermittent. She points to the right side as the site of her pain. She saw her primary care physician who ordered an outpatient CAT scan the abdomen and pelvis. She received a call from her doctor informing her that she needed to see a surgeon because the CAT scan showed question of a possible volvulus. She states that she moved her bowels normally this morning, but she complains of the pain as well as nausea. She is status post a hysterectomy for fibroids. She is also status post two C-sections. 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 - Sinus tachycardia DURING PAST SURGICAL HISTORY Procedure Laterality Date - ARTHROTOMY,OPEN REPAIR MENISCUS Left knee - DELIVERY ONLY 04-09-2004 , low cervical/ - DELIVERY ONLY 05/10/2005 , low cervical/bto - HYSTERECTOMY 05/2017 partial - HYSTERECTOMY HX - LIGATE FALLOPIAN TUBE 05/10/2005 Tubal ligation - LOW SKIN FACE EAR HND + 25SQ Left 2017 graft ear removal basal cell CA - MENISCAL REPAIR SYS,[id number] 11/29/2015 FAMILY HISTORY Problem Relation Age of Onset - Breast Cancer Mother 51 at age 51 Stage 4 - other (atrial fibrillation) Father 63 - other (heart attack) Paternal Grandfather 50 - other (fibroid tumor) Sister - other (endometriosis) Sister - other (Ovarian Cyst) Other Maternal Niece Social History Social History Main Topics - Smoking status: Former Smoker - Smokeless tobacco: Former User Quit date: 02/17/2012 - Alcohol use Yes Comment: Rarely - Drug use: No - Sexual activity: Yes Partners: Male control/ protection: Tubal Ligation, IUD ALLERGIES No Known Allergies Review of Systems The patient denies any fever, headache, chest pain, shortness of breath, or sputum production. She reports the right-sided abdominal pain that is intermittent and crampy. She denies any melena, hematochezia, dysuria, or hematuria. She denies any vaginal bleeding or discharge. She denies any change in diet vomiting. She denies any focal or generalized weakness. The remaining appropriate systems were reviewed and were negative. Physical Exam BP 111/64 Pulse 80 Temp (Src) 98.2 (Oral) Resp 18 Ht 5' 3 (1.60m) Wt 165 lb (74.8kg) SpO2 100% LMP 10/09/2012 BMI 29.24 kg/(m2). Physical Exam The patient's skin is pink, warm, dry. Her chest is clear. There is no CVA tenderness. Abdomen is nondistended with quiet bowel sounds. She has some mild tenderness in the right hypogastric region with voluntary guarding. There is no rebound or palpable masses. The remaining aspects of the abdomen is soft and nontender. There is no CVA tenderness. She is appropriate and nonfocal exam. Neurovascular status is intact. Diagnostic Testing ED Labs Ordered and Reviewed - No data to display Procedures ED Course / Clinical Impression Clinical Impressions as of Aug 16 1524 Abdominal pain, unspecified abdominal location The patient be provided with IV fluids, antiemetics, and analgesia. The general surgery service has been consult as planned by the freestanding emergency department from which she was transferred. The patient remains in stable condition. MDM / Disposition / Plan MDM The patient was seen by the surgical service. They will be admitting her and taking her to the operating room for a diagnostic laparoscopy. She'll be transferred to the OR in stable condition under the service of Dr. Olivares. SIGNATURE: MD Nichole Molina MD 08/16/18 1526 Normal [facility] ED PROV NOTE HNO ID: [id number] Author: Edil Dinh MD Service: Emergency Medicine Author Type: Physician Type: ED Provider Notes Filed: 08/16/2018 2:20 PM Note Text: 38-year-old female presents to us after she had an outpatient CT scan that was read as showing a possible small bowel obstruction versus volvulus. The patient states that she's been having some abdominal pain and some nausea, but denies vomiting, diarrhea, constipation, urinary symptoms including no dysuria hematuria frequency or urgency of urination. The patient denies any chest pain, shortness of breath, fevers or chills as well. Patient came in here as workman sedation from the results from the outpatient CT scan. We read the CT scan report and we called general surgery. The general surgeon agreed that the patient should be taken down to our main emergency department for surgical evaluation. On examination her abdomen is soft, nondistended, had diffuse tenderness to palpation deformity without rebound tenderness guarding or rigidity.This patient had a normal cardiac exam. The patient has a normal S1-S2, a regular rate and rhythm, and no murmurs, rubs or gallops. Lungs were clear bilaterally, no rales, rhonchi, crackles, or wheezes. Edil Dinh MD 08/16/18 1420 Normal [facility] ED PROV NOTE HNO ID: [id number] Author: NEMESIO Wood ([place]) Service: Emergency Medicine Author Type: Physician Blending Operator Type: ED Provider Notes Filed: 08/16/2018 2:20 PM Note Text: Attestation signed by Edil Dinh MD at 08/21/2018 10:09 AM Attending Note I evaluated the patient and personally participated in the guerra components. I agree with the resident's findings and plan as documented and have discussed the case and management of the patient's care with the resident. Signature: Edil Dinh MD Date: 08/21/2018 Time: 10:09 AM ED Provider Note Patient Name: Kyra Jo SERVICE DATE: 08/16/18 History Patient presents with: Abdominal Pain: CT recent shows hernia and intestinal ?torsion now today pain worse no appetite and nausea HPI This is a 38-year-old female with no significant past medical history who presents to the ED with abnormal CT results. States that she had abdominal CT 2 days ago due to her ongoing abdominal pain over the past 2 months that has been worsening. She was told that she may have a volvulus or partial bowel obstruction and to go to the nearest ED for evaluation by a surgeon. Patient endorses intermittent right flank and right lower quadrant pain that sometimes radiates into her left upper quadrant. She has been taking ibuprofen and Tylenol for the pain with some relief. Endorses nausea but denies any vomiting. Denies any changes in bowel movements, last bowel movement was today. Denies any hematemesis or hematochezia. Denies any fever or chills. Denies any urinary complaints. Past surgical history includes section and partial hysterectomy. 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 - Sinus tachycardia DURING PAST SURGICAL HISTORY Procedure Laterality Date - ARTHROTOMY,OPEN REPAIR MENISCUS Left knee - DELIVERY ONLY 04-09-2004 , low cervical/ - DELIVERY ONLY 05/10/2005 , low cervical/bto - HYSTERECTOMY 05/2017 partial - LIGATE FALLOPIAN TUBE 05/10/2005 Tubal ligation - LOW SKIN FACE EAR HND + 25SQ Left 2017 graft ear removal basal cell CA - MENISCAL REPAIR SYS,[id number] 11/29/2015 FAMILY HISTORY Problem Relation Age of Onset - Breast Cancer Mother 51 at age 51 Stage 4 - other (atrial fibrillation) Father 63 - other (heart attack) Paternal Grandfather 50 - other (fibroid tumor) Sister - other (endometriosis) Sister - other (Ovarian Cyst) Other Maternal Niece Social History Social History Main Topics - Smoking status: Former Smoker - Smokeless tobacco: Former User Quit date: 02/17/2012 - Alcohol use Yes Comment: Rarely - Drug use: No - Sexual activity: Yes Partners: Male control/ protection: Tubal Ligation, IUD ALLERGIES No Known Allergies Review of Systems Constitutional: Negative for chills and fever. HENT: Negative for congestion and sore throat. Eyes: Negative for visual disturbance. Respiratory: Negative for shortness of breath. Cardiovascular: Negative for chest pain. Gastrointestinal: Positive for abdominal pain and nausea. Negative for constipation, diarrhea and vomiting. Genitourinary: Positive for flank pain. Negative for dysuria, frequency and hematuria. Musculoskeletal: Negative for arthralgias. Skin: Negative for color change. Neurological: Negative for dizziness, syncope, light-headedness, numbness and headaches. All other systems reviewed and are negative. Physical Exam BP 157/67 Pulse 100 Temp (Src) 98.2 (Temporal Artery) Resp 16 Ht 5' 3 (1.60m) Wt 165 lb (74.8kg) SpO2 99% LMP 10/09/2012 BMI 29.24 kg/(m2). Physical Exam Constitutional: She is oriented to person, place, and time. She appears well-developed and well-nourished. No distress. HENT: Head: Normocephalic and atraumatic. Right Ear: External ear normal. Left Ear: External ear normal. Nose: Nose normal. Mouth/Throat: Oropharynx is clear and moist. No oropharyngeal exudate. Eyes: Pupils are equal, round, and reactive to light. Conjunctivae and EOM are normal. Neck: Normal range of motion. Neck supple. Cardiovascular: Normal rate, regular rhythm, normal heart sounds and intact distal pulses. No murmur heard. Pulmonary/Chest: Effort normal and breath sounds normal. No respiratory distress. She has no wheezes. She has no rales. Abdominal: Soft. Normal appearance. She exhibits no distension. Bowel sounds are increased. There is tenderness in the right upper quadrant, right lower quadrant and left upper quadrant. There is no rigidity, no rebound, no guarding, no CVA tenderness and negative Hong's sign. Musculoskeletal: Normal range of motion. She exhibits no edema or deformity. Neurological: She is alert and oriented to person, place, and time. Skin: Skin is warm and dry. Capillary refill takes less than 2 seconds. Psychiatric: She has a normal mood and affect. Her behavior is normal. Judgment and thought content normal. Nursing note and vitals reviewed. Diagnostic Testing ED Labs Ordered and Reviewed COMPREHENSIVE METABOLIC PANEL (AK,AV,EU,FV,HL,MARCE,MM,S P) LIPASE BLOOD (AK,AV,EU,FV,HL,MARCE,MM,S P) CBC + AUTO DIFF (AK,AV,EU,FV,HL,MARCE,MM,S P) LACTIC ACID / LACTATE (AK,AV,EU,FV,HL,MARCE,MM,S P) MDRD GFR Procedures ED Course / Clinical Impression Vital signs were reviewed. Triage records and medical records were reviewed. Nursing notes were reviewed and incorporated. The attending who evaluated and managed this patient was Dr. Dinh. Patient presents with abnormal CT results. She is well-appearing and hemodynamically stable. I spoke with surgery attending and we will transfer patient to the main ED for evaluation by surgery. Basic labs are drawn and sent. Patient does not want anything for pain control at this time and declines any antiemetics. She is given IV fluids and will go by ambulance to [facility] ED. Patient expressed understanding and is amendable to this course of action. Patient understood suspected diagnosis and instruction. No barriers of communication were apparent and I answered all questions. This note was generated using [employer] voice dictation. All resonable efforts were made to correct dictation errors but they still may occur given the nature of the software. ED Course as of Aug 16 1419 Ailin Ibanez (Pa)'s Documentation Sun Aug 16, 2018 1150 spoke with surgical attending Dr. Olivares, he recommends to transfer the patient downtown to the main ED for evaluation by gen surgery. He would not like any additional imaging obtained and this ED at this time. 1154 Spoke with ED attending Dr. Sultana to give report that patient will be transferred to [facility] ED for evaluation and continuity of care. 1213 CBC: No clinically significant leukocytosis or anemia. Clinical Impressions as of Aug 16 1419 Abdominal pain, unspecified abdominal location MDM / Disposition / Plan Disposition The patient was other (comment) and transferred. Transferred to [facility] ED . Condition at disposition is stable. SIGNATURE: KHUSHBU Wood PA (Pa) 08/16/18 1420 Edil Dinh MD 08/21/18 1009 Normal [facility] HISTORY PHYSICALon 9 HISTORY PHYSICAL HNO ID: [id number] Author: Wiley Olivares Service: General Surgery Author Type: Physician Type: HANDP Filed: 08/18/2018 9:25 AM Note Text: HANDP: EMERGENCY GENERAL SURGERY SERVICE Emergency General Surgery Service Pager: For questions or concerns Mon-Fri 6a-5p please page [phone]. After 5pm and on Weekends and Holidays, please page [phone] if in ICU or [phone] if on RNF. SERVICE DATE: 08/16/2018 SERVICE TIME: 2:28 PM REASON FOR CONSULT: abd pain REQUESTING PHYSICIAN: Dr Davis PRIMARY CARE PHYSICIAN: Jared Marrero MD Subjective Ms. Jo is a 38 year old female with R flank and RLQ pain since May. Pain began in her R posterior back and RLQ and radiated to her R hip and was constant. Pain was slightly controlled at the time with ibuprophen. She also had 1 BM with was bloody and having not had a BM for 4 days but that has not happened since. Since then the pain has become more frequent and more intense. It is worse when sitting but does not appear to have any inciting events. She denies any association with food. She began feeling nauseated last night which continued this morning. That was associated with eating. No emesis. Passing flatus and having normal BMs. She saw her PCP on 07/[address] scan which wasn't completed until this week due to insurance. PShx - x 2 and hysterectomy for fibroids and endometriosis (2016) PAST MEDICAL HISTORY Diagnosis Date - Basal cell carcinoma 2017 ear - Dysthymic disorder OFF ZOLOFT SINCE Depression (non-psychotic) - Endometriosis, site unspecified Endometriosis - Family history of malignant neoplasm of breast MOTHER - 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 - Sinus tachycardia DURING PAST SURGICAL HISTORY Procedure Laterality Date - ARTHROTOMY,OPEN REPAIR MENISCUS Left knee - DELIVERY ONLY 04-09-2004 , low cervical/ - DELIVERY ONLY 05/10/2005 , low cervical/bto - HYSTERECTOMY 05/2017 partial - HYSTERECTOMY HX - LIGATE FALLOPIAN TUBE 05/10/2005 Tubal ligation - LOW SKIN FACE EAR HND + 25SQ Left 2017 graft ear removal basal cell CA - MENISCAL REPAIR FRED BROOKS,[id number] 11/29/2015 FAMILY HISTORY Problem Relation Age of Onset - Breast Cancer Mother 51 at age 51 Stage 4 - other (atrial fibrillation) Father 63 - other (heart attack) Paternal Grandfather 50 - other (fibroid tumor) Sister - other (endometriosis) Sister - other (Ovarian Cyst) Other Maternal Niece Social History Substance Use Topics - Smoking status: Former Smoker - Smokeless tobacco: Former User Quit date: 02/17/2012 - Alcohol use Yes Comment: Rarely (Not in a hospital admission) Current hospital medications Medication - ondansetron (PF) 4 mg injection (ZOFRAN)Disp: Rfl: - morphine 1 mg injectionDisp: Rfl: - NaCl 0.9% 1,000 mL iv bolusDisp: Rfl: Allergies As of Date: 08/16/2018 (No Known Allergies) Fully Assessed 08/16/2018 COMPLETE REVIEW OF SYSTEMS: See HPI Objective PHYSICAL EXAM: Physical Exam Performed: GENERAL: Alert, Moderate Distress, Cooperative SKIN: Skin color, texture, turgor normal. No rashes or lesions. ABDOMEN: soft, nondistended, TTP in RLQ, no guarding BACK: R flank TTP EXTREMITIES: Extremities normal, no deformities, edema, clubbing or skin discoloration. Good capillary refill. NEURO: Grossly normal cognition, motor function, and cranial nerves III-XII PULSES: 2+ radial BP 111/64 Pulse 80 Temp (Src) 98.2 (Oral) Resp 18 Ht 5' 3 (1.60m) Wt 165 lb (74.8kg) SpO2 100% LMP 10/09/2012 BMI 29.24 kg/(m2). DATA: Diagnostic tests reviewed for today's visit: Most recent labs and imaging results. No orders to display Impression/Recommendati ons 38 year old female with abd pain, CT concerning for poss volvulus - OR for diagnostic lap - incidental lung nodule, discussed need for follow up with patient who is understanding, she will arrange with PCP Discussed above plan with attending, Dr Olivares SIGNATURE: Vannessa Faria MD PATIENT NAME: Kyra Jo DATE: August 16, 2018 TIME: 2:28 PM PAGER: see below Emergency General Surgery Service Pager: For questions or concerns Mon-Fri 6a-5p please page [phone]. After 5pm and on Weekends and Holidays, please page [phone] if in ICU or [phone] if on RNF. Attending Note I evaluated the patient and personally participated in the guerra components on 08/16/2018 I agree with the resident's findings and plan as documented and have discussed the case and management of the patient's care with the resident. Kyra Jo is a 38 year old female presented with progressively worsening abdominal pain in the last several months underwent a CT scan demonstrating small bowel abnormalities. While the CT scan was several days prior she presented today because of worsening right lower quadrant and right-sided abdominal pain, nausea and poor by mouth intake. We discussed the risks, benefits and alternatives to perform a diagnostic laparoscopy with a planned appendectomy. She and her were both agreeable to proceed with the surgery. Wiley Olivares MD Department of General Surgery Section of Trauma, Surgery Critical Care, and Acute Care Surgery Delayed entry Normal [facility] HOSPon 08-16-2018 HOSP Patient:Silvia Jo MRN: Height:5' 3(1.6 m) Weight:165 lb (74.844 kg) Outpatient Medications as of 08/16/18: TURMERIC ORAL [place]-3 Fatty Acids 300 mg cap Admission/Clinic Administered Medications as of 08/16/18: Patient has no admission medications. 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] Family history of malignant neoplasm of breast- mother [Z80.3] Seasonal allergic rhinitis [J30.2] Basal cell carcinoma- left ear [C44.91] status post hysterectomy - ovaries spared [Z90.710] Lung nodules [R91.8] Incidental lung nodule, greater than or equal to 8mm [R91.1] Intestinal hernia [K46.9] Volvulus of sigmoid colon (HCC) [K56.2] Allergies: No Known Allergies Date Verified:08/16/18 Lab Values Lab Value Units Date High Low POTA* 3.9 mEq/L 08/16/2018 5.1 3.5 SISI* 41.8 % 08/16/2018 43.3 34.7 Progress Notes ([facility]): Jared Marrero MD 08/15/2018 1:16 PM Signed I want her to be evaluated by a surgeon MAHAD , to evaluate for her ct changes in her intestines . if she has ANY worsening symptoms. Such as pain , new vomiting. Fever. Chills. She must go to ED mahad There was also an incidental finding of a lung nodule that needs further evaluated with a chest ct - this will be ordered . Progress Notes ([facility]): Anne Sullivan DO 08/15/2018 9:55 AM Signed Called back because concerned with the conversation last night - Does she need to go to the ER? She states the pain has subsided in the past week but there is still discomfort on the RLQ with sitting and standing for prolonged period of times. 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 Discussed no sports, no heavy lifting, no constipation till evaluated. Gave the number to the [facility] just in case needs to be seen emergently. She voiced understanding. Anne Sullivan DO Normal [facility] Hemogram/Diffon 08-16-2018 Abs. Baso 0.02 thou/cmm Normal 0.00-0.08 [facility] Comment on above: Performed By: #### N CBCD #### [address] [address] Abs. [place] 0.28 thou/cmm Normal 0.19-0.80 [facility] Comment on above: Performed By: #### N CBCD #### [address] [address] Abs. Neut (ANC) 3.06 thou/cmm Normal 1.35-7.21 [facility] Comment on above: Performed By: #### N CBCD #### [address] [address] Basophils/100 WBC (Bld) 0.4 % Normal [facility] Comment on above: Performed By: #### N CBCD #### [address] [address] Eosinophils (Bld) [#/Vol] 0.03 thou/cmm Normal 0.00-0.36 [facility] Comment on above: Performed By: #### N CBCD #### [facility] [address] [place], [place] [address] Eosinophils/100 WBC (Bld) 0.6 % Normal [facility] Comment on above: Performed By: #### N CBCD #### [facility] [address] [place], [place] [address] Erythrocyte distribution width (RBC) [Ratio] 12.1 % Normal 11.8-14.5 [facility] Comment on above: Performed By: #### N CBCD #### [facility] [address] [place], [place] [address] Hematocrit (Bld) [Volume fraction] 41.8 % Normal 34.7-43.3 [facility] Comment on above: Performed By: #### N CBCD #### [facility] [address] [place] [address] Hemoglobin (Bld) [Mass/Vol] 14.0 g/dL Normal 11.7-14.7 [facility] Comment on above: Performed By: #### N CBCD #### [place] [address] Lymphocytes (Bld) [#/Vol] 1.41 thou/cmm Normal 0.68-2.93 [facility] Comment on above: Performed By: #### N CBCD #### [address] [address] Lymphocytes/100 WBC (Bld) 29.4 % Normal [facility] Comment on above: Performed By: #### N CBCD #### [place] [address] MCH (RBC) [Entitic mass] 30.3 pg Normal 27.4-32.8 [facility] Comment on above: Performed By: #### N CBCD #### [place] [address] MCHC (RBC) [Mass/Vol] 33.5 % Normal 31.9-35.6 [facility] Comment on above: Performed By: #### N CBCD #### [place] [address] MCV (RBC) [Entitic vol] 90.5 fL Normal 82.1-97.4 [facility] Comment on above: Performed By: #### N CBCD #### [facility] [address] [place] [address] Monocytes/100 WBC (Bld) 5.8 % Normal [facility] Comment on above: Performed By: #### N CBCD #### [facility] [address] [place] [address] Platelet mean volume (Bld) [Entitic vol] 9.2 fL Normal 8.8-12.1 [facility] Comment on above: Performed By: #### N CBCD #### [facility] [address] [place] [address] Platelets (Bld) [#/Vol] 246 thou/cmm Normal 150-370 [facility] Comment on above: Performed By: #### N CBCD #### [place] [address] RBC (Bld) [#/Vol] 4.62 mil/cmm Normal 3.79-4.93 [facility] Comment on above: Performed By: #### N CBCD #### [facility] [address] [place] [address] Seg Neutrophil 63.8 % Normal [facility] Comment on above: Performed By: #### N CBCD #### [facility] [address] [place] [address] WBC (Bld) [#/Vol] 4.8 thou/cmm Normal 4.4-9.7 [facility] Comment on above: Performed By: #### N CBCD #### [facility] [address] [place] [address] Lactic Acidon 08-16-2018 Lactate [Moles/Vol] 0.9 mmol/L Normal 0.4-2.0 [facility] Comment on above: Performed By: #### M LAC #### [facility] [address] [place] [address] Lipase Bloodon 08-16-2018 Lipase Blood 106 U/L Normal 73-393 [facility] Comment on above: Performed By: #### M LIP #### [facility] [address] [place], [place] [address] MDRD eGFRon 08-16-2018 GFR/1.73 sq M predicted among non-blacks MDRD (S/P/Bld) [Vol rate/Area] mL/min/{1.73_m2} Normal >60mL/min/1. 73m2 [facility] Comment on above: Result Comment: If t he patient is , multiply the result by 1.210. Performed By: #### M GFR #### [facility] [address] [place], [place] [address] OPERATIVE NOon 08-16-2018 OPERATIVE NO HNO ID: [id number] Author: Wiley Olivares Service: General Surgery Author Type: Physician Type: Operative Report Filed: 08/17/2018 4:12 PM Note Text: [facility] - Operative Report KYRA JO : 1980 AGE: 38. SEX: F PATIENT TYPE: I [place] [facility] [place] LOCATION: [id number] ATTENDING PHYSICIAN: Wiley Olivares M.D. CSN NUMBER: [id number] DATE OF SURGERY/PROCEDURE: 08/16/2018 INCISION/PROCEDURE START TIME: 4:20 PM INCISION CLOSE/PROCEDURE END TIME: 5:28 PM PREOPERATIVE DIAGNOSIS: Right lower quadrant pain. POSTOPERATIVE DIAGNOSIS: Chronic appendicitis, right lower quadrant pain. SURGEON: Wiley Olivares M.D. DIRECTOR FOOD AND BEVERAGE: Shanna Ferguson MD, resident. SURGERY/PROCEDURE: 1. Diagnostic laparoscopy. 2. Laparoscopic appendectomy. 3. Removal of surgical clip. ANESTHESIA: General. INDICATIONS FOR PROCEDURE: The patient is a 38-year-old female who presented to the emergency department with complaints of right lower quadrant abdominal pain since May. Her primary care physician had ordered a CT scan of the abdomen and pelvis that showed a possible small bowel obstruction versus volvulus versus internal hernia. The patient was found to have right lower quadrant pain. However, her labs were normal. Diagnostic laparoscopy was discussed with the patient to evaluate her pain including the risk of needing a bowel resection, appendectomy, creation of a stoma, increased risk of developing infection, bleeding, or damage to surrounding structures. These risks were discussed with the patient, and the patient elected to proceed with surgery. DESCRIPTION OF PROCEDURE: The patient was taken to the operating room and placed in the supine position. The Anesthesia team induced general anesthesia via endotracheal tube. The abdomen was prepped and draped in the usual sterile fashion. A [facility] approved time-out was performed verifying the correct patient and operation to be performed. An 11 mm incision was made infraumbilically, and dissection was carried down to the level of the fascia. The fascia was incised. The abdomen was then entered utilizing a María Elena. A 0 Vicryl suture was placed on either side of the fascial incision. A Odessa cannula was then inserted into the abdomen. The abdomen was insufflated with carbon dioxide to a pressure of 15 mmHg. The camera was inserted through the port to verify correct entry into the abdomen. The abdomen was inspected with no gross abnormalities identified with the exception of some injected small bowel. A 5 mm port was placed in the right lower quadrant as well as in the right upper quadrant. Bowel graspers were utilized to run the small bowel from the ligament of Treitz to the level of the ileocecal valve. An area was identified that seemed to be a small amount of narrowing versus a peristaltic wave. This was immediately proximal to an area of the injected small bowel that was notified on initial inspection. The bowel in this area felt normal and did not appear to be twisted or adhesed in any way. A small implant was identified on the surface of the small bowel as well. This was removed with cold scissors and sent to Pathology for further identification. We then turned our attention to the right lower quadrant. Two additional 5 mm ports were placed in the suprapubic region and left lower quadrant. The cecum was identified. The appendix was identified and appeared to be somewhat retrocecal in nature. Next to the appendix was also a retained surgical clip from a previous surgery. This clip was adhered to the abdominal wall and was not involving any bowel. The appendix adhesions were taken down utilizing the Harmonic Scalpel. The appendix appeared to be a little injected and was also located near the surgical clip. The appendix was removed from the base of the cecum utilizing 2 Endoloops. The Harmonic Scalpel was used to cut across the appendix. The appendix was placed into the Endo Catch bag. The surgical clip adhered to the abdominal wall was freed and also placed into the Endo Catch bag. The Endo Catch bag was then closed and put back into the port. The right lower quadrant was then inspected for bleeding. Good hemostasis was achieved. The 5 mm ports were then all removed under direct visualization followed then by the 11 mm port. The appendix and surgical clip within the Endo Catch bag were removed from the umbilical incision. The fascia was then closed with the 0 Vicryl sutures placed at the beginning of the case. The skin was then closed with 4-0 Monocryl interrupted sutures. Exofin skin glue was utilized over each incision. The patient was then awoken from general anesthesia and transferred to the postanesthesia care unit in stable condition. Dr. Olivares was present for the entirety of the case. Sponge and needle counts were reported correct x 2. Wiley Olivares M.D. Dictated by Shanna Ferguson MD for Wiley Olivares M.D. WHL:[id number] /[id number] [facility] Operative Staff Addendum I was present and participated in the entire procedure. Wiley Olivares MD Normal [facility] Surgical Tissue [place] 08-16 Surgical Tissue Exam Test performed at [place] [address] NAME: KYRA JO REQUESTING: WILEY OLIVARES MD COPY TO: NICHOLE DAVIS FINAL DIAGNOSIS: A) SMALL BOWEL LESION, EXCISION - BENIGN FIBROADIPOSE WITH CHRONIC LYMPHOPLASMACYTIC INFLAMMATION. B) APPENDIX AND SURGICAL CLIP, APPENDECTOMY - APPENDIX WITH SEROSAL ADHESIONS. SURGICAL CLIP. OPERATIVE PROCEDURE: Laparoscopy diagnostic CLINICAL INFORMATION: Volvulus [K56.2], Right lower quadrant pain [R10.31] GROSS DESCRIPTION: A) Small bowel lesion Received in formalin labeled small bowel lesion is an irregular-shaped segment of pink to white soft tissue measuring 0.3 x 0.2 x 0.1 cm. The specimen is totally submitted in formalin in one cassette. B) Appendix and surgical cup Received in formalin labeled appendix is an appendix measuring 6.5 cm in length and 1.2 cm in greatest width. The attached mesoappendix measures 3.0 x 1.0 x 1.0 cm. The apparent line of resection is inked black. The serosal surface is smooth and glistening. Sectioning does reveal the lumen to be dilated up to 0.8 cm and diffusely impacted by fecalith material. A perforation is not evident. Also present within the container is a metal surgical clip with minimal attached fibrinous tissue. [employer] sections of the appendix are submitted in formalin from the inked line of resection towards the distal tip in cassettes B1 and B2. ARH:ferdinand CORONADO M.D.,PATHOLOGIST (Electronic signature on file) Signed out: 08/18/2018 11:11 PRINTED: 08/18/2018 Page 1 of 1 Normal [facility] Comment on above: Performed By: #### S URG #### [address] 08-15-2018 [facility] Telephone ([facility]) KYRA JO ([id number]) 1980 F Date Time Provider Department 08/15/18 JARED MARRERO [facility] During your visit today, we recorded the following information about you: Jared Marrero MD 08/15/2018 1:16 PM Signed I want her to be evaluated by a surgeon MAHAD , to evaluate for her ct changes in her intestines . if she has ANY worsening symptoms. Such as pain , new vomiting. Fever. Chills. She must go to ED mahad There was also an incidental finding of a lung nodule that needs further evaluated with a chest ct - this will be ordered . Tammy Denise Reg 08/17/2018 10:25 AM Signed I called patient and let her know 's message. She states that she went to the ER last night and had surgery last night. She states she is waiting to be discharged now from the hospital. She states she is at [facility]. Tammy Denise Reg August 17, 2018 10:24 AM Allergies As of Date: 08/15/2018 (No Known Allergies) Date Reviewed: 07/13/2018 Reviewed by: Maeve ([facility]) Evelina - Fully Assessed Reason for Visit: ER/Urgent Referral [258] Primary Visit Diagnosis:Intestinal obstruction, unspecified cause, unspecified whether partial or complete (HCC) [K56.609] Other Visit Diagnoses:Foreign body in intestine, sequela= migrated surgical clip near cecum [T18.3XXS] Intestinal hernia [K46.9] Volvulus of sigmoid colon (HCC) [K56.2] Incidental lung nodule, greater than or equal to 8mm [R91.1] Order(s):CONSULT TO GENERAL SURGERY [9011] Order #: [id number]: 1 CT CHEST WO IVCON [1163343] Order #: [id number] FUTURE Prescriptions as of 08/15/2018 Sig: TURMERIC ORAL Take by mouth once daily. OMEGA-3 FATTY ACIDS 300 MG CA* Take by mouth. 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] INVALID FOR*08/07/2011 ENDOMETRIOSIS NOS [N80.9] INVALID FOR* Unspecified symptom associated with female courtney*INVALID FOR*08/07/2011 Dysmenorrhea [N94.6] INVALID FOR*07/18/2016 Dyspareunia [[id number]] INVALID FOR*11/26/2017 Abdominal pain, right lower quadrant [R10.31] INVALID FOR*08/07/2011 Abdominal pain, left lower quadrant [R10.32] INVALID FOR*08/07/2011 Excessive or frequent menstruation [N92.0] INVALID FOR*08/07/2011 Mastodynia [N64.4] INVALID FOR*11/26/2017 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 Basal cell carcinoma- left ear [C44.91] INVALID FOR* More... status post hysterectomy - ovaries spared [Z90.*INVALID FOR* Lung nodules [R91.8] INVALID FOR* Incidental lung nodule, greater than or equal t*INVALID FOR* Intestinal hernia [K46.9] INVALID FOR* Volvulus of sigmoid colon (HCC) [K56.2] INVALID FOR* Encounter Status:Closed by JARED MARRERO on 08/15/18 Normal [facility] Hemogram/Diffon 07-13-2018 Abs Immature Grans 0.02 thou/cmm Normal 0.00-0.05 [facility] Comment on above: Performed By: #### C BCD1 #### [address] [address] Abs. Baso 0.04 thou/cmm Normal 0.01-0.08 [facility] Comment on above: Performed By: #### C BCD1 #### [address] [address] Abs. [place] 0.38 thou/cmm Normal 0.27-0.70 [facility] Comment on above: Performed By: #### C BCD1 #### [address] [address] Abs. Neut (ANC) 3.74 thou/cmm Normal 1.56-6.13 [facility] Comment on above: Performed By: #### C BCD1 #### [address] [address] Basophils/100 WBC (Bld) 0.7 % Normal [facility] Comment on above: Performed By: #### C BCD1 #### [facility] [address] [place], [place] [address] Eosinophils (Bld) [#/Vol] 0.03 thou/cmm Normal 0.00-0.31 [facility] Comment on above: Performed By: #### C BCD1 #### [address] [address] Eosinophils/100 WBC (Bld) 0.5 % Normal [facility] Comment on above: Performed By: #### C BCD1 #### [address] [place], [place] [address] Erythrocyte distribution width (RBC) [Ratio] 12.1 % Normal 11.7-14.4 [facility] Comment on above: Performed By: #### C BCD1 #### [facility] [address] [place] [address] Hematocrit (Bld) [Volume fraction] 41.7 % Normal 34.1-44.9 [facility] Comment on above: Performed By: #### C BCD1 #### [facility] [address] [place] [address] Hemoglobin (Bld) [Mass/Vol] 13.9 g/dL Normal 11.2-15.7 [facility] Comment on above: Performed By: #### C BCD1 #### [facility] [address] [place] [address] Immature Grans 0.30 % Normal [facility] Comment on above: Performed By: #### C BCD1 #### [facility] [address] [place] [address] Lymphocytes (Bld) [#/Vol] 1.94 thou/cmm Normal 1.18-3.74 [facility] Comment on above: Performed By: #### C BCD1 #### [place] [address] Lymphocytes/100 WBC (Bld) 31.5 % Normal [facility] Comment on above: Performed By: #### C BCD1 #### [facility] [address] [place] [address] MCH (RBC) [Entitic mass] 30.2 pg Normal 25.6-32.2 [facility] Comment on above: Performed By: #### C BCD1 #### [facility] [address] [place] [address] MCHC (RBC) [Mass/Vol] 33.3 % Normal 31.6-34.8 [facility] Comment on above: Performed By: #### C BCD1 #### [facility] [address] [place] [address] MCV (RBC) [Entitic vol] 90.7 fL Normal 79.4-94.8 [facility] Comment on above: Performed By: #### C BCD1 #### [facility] [address] [place], [place] [address] Monocytes/100 WBC (Bld) 6.2 % Normal [facility] Comment on above: Performed By: #### C BCD1 #### [facility] [address] [place], [place] [address] Platelet mean volume (Bld) [Entitic vol] 10.1 fL Normal 9.4-12.3 [facility] Comment on above: Performed By: #### C BCD1 #### [facility] [address] [place] [address] Platelets (Bld) [#/Vol] 249 thou/cmm Normal 182-369 [facility] Comment on above: Performed By: #### C BCD1 #### [facility] [address] [place] [address] RBC (Bld) [#/Vol] 4.60 mil/cmm Normal 3.93-5.22 [facility] Comment on above: Performed By: #### C BCD1 #### [facility] [address] [place] [address] RDW SD 39.6 fl Normal 36.4-46.3 [facility] Comment on above: Performed By: #### C BCD1 #### [facility] [address] [place] [address] Seg Neutrophil 60.8 % Normal [facility] Comment on above: Performed By: #### C BCD1 #### [facility] [address] [place], [place] [address] WBC (Bld) [#/Vol] 6.15 thou/cmm Normal 3.98-10.04 [facility] Comment on above: Performed By: #### C BCD1 #### [facility] [address] [place] [address] Lipase Bloodon 07-13-2018 Lipase Blood 132 U/L Normal 73-393 [facility] Comment on above: Performed By: #### L IP #### [facility] [address] [place] [address] Urinalysis Routineon 019 Bacteria LM.HPF (Urine sed) [#/Area] NONE Normal None [facility] Comment on above: Performed By: #### U RIN2 #### [facility] [address] [place] [address] Ep Cells Urine 0.9 /hpf Normal 0.0-5.0 [facility] Comment on above: Performed By: #### U RIN2 #### [facility] [address] [place] [address] Hyaline Cast 1.2 /lpf High 0.0-1.0 [facility] Comment on above: Performed By: #### U RIN2 #### [place] [address] RBC LM.HPF (Urine sed) [#/Area] 1.0 /[HPF] Normal 0.0-5.0 [facility] Comment on above: Performed By: #### U RIN2 #### [place] [address] WBC LM.HPF (Urine sed) [#/Area] 0.3 /[HPF] Normal 0.0-5.0 [facility] Comment on above: Performed By: #### U RIN2 #### [place] [address] Appearance (U) CLEAR Normal [facility] Comment on above: Performed By: #### U RIN2 #### [place] [address] Bilirubin (U) [Mass/Vol] Negative Normal Negative [facility] Comment on above: Performed By: #### U RIN2 #### [place] [address] Color (U) YELLOW Normal [facility] Comment on above: Performed By: #### U RIN2 #### [place] [address] Glucose Ql (U) Negative Normal Negative [facility] Comment on above: Performed By: #### U RIN2 #### [place] [address] Hemoglobin,Urine Negative Normal Negative [facility] Comment on above: Performed By: #### U RIN2 #### [facility] [address] [place] [address] Ketone Urine Negative Normal Negative [facility] Comment on above: Performed By: #### U RIN2 #### [facility] [address] [place] [address] Leukocytes Esterase Negative Normal Negative [facility] Comment on above: Performed By: #### U RIN2 #### [facility] [address] [place] [address] Nitrites Urine Negative Normal Negative [facility] Comment on above: Performed By: #### U RIN2 #### [facility] [address] [place] [address] pH (U) 6.0 [pH] Normal 5.0-8.0 [facility] Comment on above: Performed By: #### U RIN2 #### [place] [address] Protein (U) [Mass/Vol] Negative Normal Negative [facility] Comment on above: Performed By: #### U RIN2 #### [facility] [address] [place] [address] Specific [place], Ur 1.011 Normal 1.005-1.030 [facility] Comment on above: Performed By: #### U RIN2 #### [place] [address] Urobilinogen,Ur 0.2 EU/dL Normal 0.0-1.0 [facility] Comment on above: Performed By: #### U RIN2 #### [place] [address] Microbiology: Culture, Urine on 06-20-2017 GE use only - for [employer] import when terms are not otherwise specified . Invalid Interpretation Code [facility] Lab Report: CBC-Complete Blo od Cnt No Diffon 06-06-2017 Erythrocytes (RBC) 3.57 10*6/uL Low [facility].2[facility]5.4 [facility] 32.9 % Low 37-47 [facility] Hemoglobin (HGB) 10.8 g/dL Low 12.0-15.0 [facility] MCH 30.3 pg Invalid Interpretation Code 27.0-32.0 [facility] MCHC 32.8 G/GL Invalid Interpretation Code 32-36 [facility] MCV 92.2 fL Invalid Interpretation Code 81-99 [facility] Platelets 198 10*3/mm3 Invalid Interpretation Code 150-450 [facility] PMV by Suzan 10.1 fL Invalid Interpretation Code 6.2-12.0 [facility] RDW-CA 12.4 % Invalid Interpretation Code 11.6-14.6 [facility] red blood cell distribution width, size density 40.0 fL Invalid Interpretation Code 35.1-43.9 [facility] WBC (Leukocytes) 6.5 10*3/uL Invalid Interpretation Code 4.4-11.0 [facility] Blood Bank: Type AND Screeno n 05-28-2017 Antibody Screen Negative Normal [facility] GE use only - for [employer] import when terms are not otherwise specified Negative Normal [facility] Lab Report: CBC-Complete Blo od Cnt No Diffon 05-28-2017 Erythrocyte distribution width Auto Ratio (RBC) 12.6 % Invalid Interpretation Code 11.6-14.6 [facility] Erythrocytes (RBC) 4.49 10*6/uL Invalid Interpretation Code 4.2-5.4 [facility] Hematocrit (HCT) 41.1 % Invalid Interpretation Code 37-47 [facility] Hemoglobin mass conc (Bld) 13.5 g/dL Invalid Interpretation Code 12.0-15.0 [facility] MCH 30.1 pg Invalid Interpretation Code 27.0-32.0 [facility] MCHC mass conc (RBC) 32.8 G/GL Invalid Interpretation Code 32-36 [facility] MCV 91.5 fL Invalid Interpretation Code 81-99 [facility] Platelets 264 10*3/mm3 Invalid Interpretation Code 150-450 [facility] PMV by Suzan 9.8 fL Invalid Interpretation Code 6.2-12.0 [facility] RDW SD 42.1 fL Invalid Interpretation Code 35.1-43.9 [facility] WBC (Leukocytes) 5.6 10*3/uL Invalid Interpretation Code 4.4-11.0 [facility] Microbiology: Culture, Genit al Comprehensiveon 05-06-2017 CUV . Invalid Interpretation Code [facility] Microbiology: (P) Culture, G enital Comprehensiveon 05-05-2017 CUV . Invalid Interpretation Code [facility] Microbiology: (P) Culture, G enital Comprehensiveon 05-04-2017 CUV . Invalid Interpretation Code [facility] Office Visit: Possible BV or [place] 05-02-2017 Documentation of current medications (procedure) Done Invalid Interpretation Code [facility] Fall risk assessment No Invalid Interpretation Code [facility] Tobacco smoking status NHIS Tobacco smoking status NHIS Invalid Interpretation Code [facility] Tobacco smoking status NHIS Never Invalid Interpretation Code [facility] Tobacco use CPHS Never smoker Invalid Interpretation Code [facility] Office Visit: bc problemson 04-14-2017 Documentation of current medications (procedure) Done Invalid Interpretation Code [facility] Work Phone: Fall risk assessment No Invalid Interpretation Code [facility] Work Phone: Tobacco smoking status NHIS Never Invalid Interpretation Code [facility] Work Phone: Tobacco use CPHS Never smoker Invalid Interpretation Code [facility] Work Phone: Office Visiton 02-10-2017 Documentation of current medications (procedure) Done Invalid Interpretation Code [facility] Fall risk assessment No Invalid Interpretation Code [facility] Hemoglobin.gastroin testinal Ql (St) not done Invalid Interpretation Code [facility] Protein mass conc Done [facility] Tobacco smoking status NHIS Never Invalid Interpretation Code [facility] Tobacco smoking status NHIS Never smoker [facility] Tobacco use CPHS Never smoker Invalid Interpretation Code [facility] Office Visiton 01-29-2016 General categories Cyto stain Interp (Cervical or vaginal smear or scraping) Normal Invalid Interpretation Code [facility] Throat specimen bacteria icndy ntification by culture Bacteria identified Cx Nom (Throat) streptococcus isolated. [facility] Work Phone: Vital Signs Date Time Vital Sign Value Performing Clinician Michael funez 02-08-2025 08:28-0400 Body height 160.[address] Yordy Ball MD Work Phone: [facility] 02-08-2025 08:28-0400 Body mass index (BMI) [Ratio] 27.5 kg/m2 Dr. Yordy Ball MD Work Phone: [facility] 02-08-2025 08:28-0400 Body weight 70.[address] Yordy Ball MD Work Phone: [facility] 02-08-2025 08:28-0400 Diastolic blood pressure 77 mm[Hg] Dr. Yordy Ball MD Work Phone: [facility] 02-08-2025 08:28-0400 Heart rate 65 /min Dr. Yordy Ball MD Work Phone: [facility] 02-08-2025 08:28-0400 Systolic blood pressure 110 mm[Hg] Dr. Yordy Ball MD Work Phone: [facility] 11-10-2024 08:23-0400 Body height 160.[address] Yordy Ball MD Work Phone: [facility] 11-10-2024 08:23-0400 Body mass index (BMI) [Ratio] 28 kg/m2 Dr. Yordy Ball MD Work Phone: [facility] 11-10-2024 08:23-0400 Body weight 71.[address] Yordy Ball MD Work Phone: [facility] 11-10-2024 08:23-0400 Diastolic blood pressure 77 mm[Hg] Dr. Yordy Ball MD Work Phone: [facility] 11-10-2024 08:23-0400 Heart rate 68 /min Dr. Yordy Ball MD Work Phone: [facility] 11-10-2024 08:23-0400 Systolic blood pressure 112 mm[Hg] Dr. Yordy Ball MD Work Phone: [facility] 08-13-2024 12:36-0500 Body mass index (BMI) [Ratio] 27.6 kg/m2 Dr. Yordy Ball MD Work Phone: [facility] 08-13-2024 12:36-0500 Body weight 70.[address] Yordy Ball MD Work Phone: [facility] 08-13-2024 12:36-0500 Diastolic blood pressure 82 mm[Hg] Dr. Yordy Ball MD Work Phone: [facility] 08-13-2024 12:36-0500 Systolic blood pressure 118 mm[Hg] Dr. Yordy Ball MD Work Phone: [facility] 12-18-2023 16:12-0400 Body height 160 cm JOHNNY CHANG MD [facility] 12-18-2023 16:12-0400 Body temperature 96.98 [degF] JOHNNY CHANG MD [facility] 12-18-2023 16:12-0400 Body weight 68.2 kg JOHNNY CHANG MD [facility] 12-18-2023 16:12-0400 Diastolic Blood Pressure Non-Invasive 73 mm[Hg] JOHNNY CHANG MD [facility] 12-18-2023 16:12-0400 Heart rate 81 /min JOHNNY CHANG MD [facility] 12-18-2023 16:12-0400 Respiratory rate 16 /min JOHNNY CHANG MD [facility] 12-18-2023 16:12-0400 Systolic Blood Pressure Non-Invasive 116 mm[Hg] JOHNNY CHANG MD [facility] 08-11-2023 14:05-0500 Body height 160.[address] Yordy Ball Work Phone: [facility] 08-11-2023 13:58-0500 Body mass index (BMI) [Ratio] 26.9 kg/m2 Dr. Yordy Ball Work Phone: [facility] 08-11-2023 13:58-0500 Body weight 68.[address] Yordy Ball Work Phone: [facility] 08-11-2023 13:58-0500 Diastolic blood pressure 81 mm[Hg] Dr. Yordy Ball Work Phone: [facility] 08-11-2023 13:58-0500 Heart rate 71 /min Dr. Yordy Ball Work Phone: [facility] 08-11-2023 13:58-0500 Systolic blood pressure 114 mm[Hg] Dr. Yordy Ball Work Phone: [facility] 05-02-2023 11:58-0400 Body height 160.[address] Yordy Ball Work Phone: [facility] 05-02-2023 11:55-0400 Body mass index (BMI) [Ratio] 27.1 kg/m2 Dr. Yordy Ball Work Phone: [facility] 05-02-2023 11:55-0400 Body weight 69.[address] Yordy Ball Work Phone: [facility] 05-02-2023 11:55-0400 Diastolic blood pressure 77 mm[Hg] Dr. Yordy Ball Work Phone: [facility] 05-02-2023 11:55-0400 Heart rate 68 /min Dr. Yordy Ball Work Phone: [facility] 05-02-2023 11:55-0400 Systolic blood pressure 113 mm[Hg] Dr. Yordy Ball Work Phone: [facility] 09-09-2022 10:11-0400 Body height 160.[address] Yordy Ball Work Phone: [facility] 09-09-2022 10:11-0400 Body mass index (BMI) [Ratio] 31.4 kg/m2 Dr. Yordy Ball Work Phone: [facility] 09-09-2022 10:11-0400 Body weight 80.[address] Yordy Ball Work Phone: [phone] [place] [address] 09-09-2022 10:11-0400 Diastolic blood pressure 74 mm[Hg] Dr. Yordy Ball Work Phone: [facility] 09-09-2022 10:11-0400 Heart rate 54 /min Dr. Yordy Ball Work Phone: [facility] 09-09-2022 10:11-0400 Systolic blood pressure 113 mm[Hg] Dr. Yordy Ball Work Phone: [facility] 05-27-2022 08:38-0500 Body height 160.[address] Yrody Ball Work Phone: [facility] 05-27-2022 08:37-0500 Body mass index (BMI) [Ratio] 31.6 kg/m2 Dr. Yordy Ball Work Phone: [facility] 05-27-2022 08:37-0500 Body weight 81.[address] Yordy Ball Work Phone: [facility] 05-27-2022 08:37-0500 Diastolic blood pressure 81 mm[Hg] Dr. Yordy Ball Work Phone: [facility] 05-27-2022 08:37-0500 Systolic blood pressure 123 mm[Hg] Dr. Yordy Ball Work Phone: [facility] 05-02-2017 10:30-0400 BMI (Body Mass Index) 28.69 kg/m2 Maria M Perez MD [facility] 05-02-2017 10:30-0400 Body Temperature 96.4 [degF] Maria M Perez MD [facility] 05-02-2017 10:30-0400 BP Diastolic 69 mm[Hg] Maria M Perez MD [facility] 05-02-2017 10:30-0400 BP Systolic 108 mm[Hg] Maria M Perez MD [facility] 05-02-2017 10:30-0400 Height 160.02 cm Maria M Perez MD [facility] 05-02-2017 10:30-0400 Pulse (Heart Rate) 75 /min Maria M Perez MD [facility] 05-02-2017 10:30-0400 Respiratory Rate 16 /min Maria M Perez MD [facility] 05-02-2017 10:30-0400 Weight 73.48 kg Maria M Perez MD [facility] 04-14-2017 13:31-0400 BMI (Body Mass Index) 29.01 kg/m2 Hetal King RN RN [facility] Work Phone: 04-14-2017 13:31-0400 Body Temperature 97 [degF] Hetal King RN RN [facility] Work Phone: 04-14-2017 13:31-0400 BP Diastolic 75 mm[Hg] Hetal King RN RN [facility] Work Phone: 04-14-2017 13:31-0400 BP Systolic 116 mm[Hg] Hetal King RN RN [facility] Work Phone: 04-14-2017 13:31-0400 Height 160.02 cm Hetal King RN RN [facility] Work Phone: 04-14-2017 13:31-0400 Pulse (Heart Rate) 80 /min Hetal King RN RN [facility] Work Phone: 04-14-2017 13:31-0400 Respiratory Rate 16 /min Hetal King RN RN [facility] Work Phone: 04-14-2017 13:31-0400 Weight 74.3 kg Hetal King RN RN [facility] Work Phone: 02-10-2017 11:09-0400 BMI (Body Mass Index) 30.04 kg/m2 Maria M Perez MD [facility] 02-10-2017 11:09-0400 Body Temperature 96.8 [degF] Maria M Perez MD [facility] 02-10-2017 11:09-0400 BP Diastolic 80 mm[Hg] Maria M Perez MD [facility] 02-10-2017 11:09-0400 BP Systolic 118 mm[Hg] Maria M Perez MD [facility] 02-10-2017 11:090400 Height 160.02 cm Maria M Perez MD [facility] 02-10-2017 11:09-0400 Respiratory Rate 16 /min Maria M Perez MD [facility] 02-10-2017 11:090400 Weight 76.93 kg Maria M Perez MD [facility] Encounters Encounter Date Encounter Type Care Provider Facility Start: 05-13-2025 ambulatory Yordy Ball [place]: 02-08-2025 End: 02-08-[address] Maria M Perez MD -[facility] Work Phone: Start: 02-08-2025 End: 02-08-[address] Yordy Ball MD Work Phone: -[facility] Start: 11-10-2024 End: 11-10-2024 Patient encounter procedure Bren RIVAS -[facility] Work Phone: Start: 11-10-2024 End: 11-10-[address] Yordy Ball MD Work Phone: [facility] Work Phone: Start: 09-20-2024 End: 09-22-2024 ambulatory UNKNOWN PROVIDER Facility:[facility] Start: 08-13-2024 End: 08-13-[address] Maria M Perez MD -[facility] Work Phone: Start: 08-13-2024 End: 08-13-[address] Maria M Perez MD [facility] Start: 08-13-2024 End: 08-13-2024 ambulatory Yordy Ball [place] [place]: 06-21-2024 End: 06-21-2024 ambulatory Maria M Perez Facility:[facility] Start: 05-12-2024 End: 05-12-2024 ambulatory Klely Huertas NP [place] Start: 12-18-2023 End: 12-18-2023 Emergency department patient visit JOHNNY CHANG MD [facility] Start: 09-19-2023 End: 09-19-[address] Yordy Ball Work Phone: [facility] Work Phone: Start: 09-19-2023 End: 09-19-[address] Yordy Ball Work Phone: [facility] Work Phone: Start: 08-11-2023 End: 08-11-[address] Yordy Ball Work Phone: [facility] Work Phone: Start: 06-19-2023 End: 06-19-[address] Yordy Ball Work Phone: [facility] Work Phone: Start: 06-19-2023 End: 06-19-[address] Yordy Ball Work Phone: [facility] Work Phone: Start: 05-02-2023 End: 05-02-[address] Yordy Ball Work Phone: [facility] Work Phone: Start: 09-16-2022 End: 09-16-[address] Yordy Ball Work Phone: [facility] Work Phone: Start: 09-16-2022 End: 09-16-[address] Yordy Ball Work Phone: [facility] Start: 09-11-2022 End: 09-11-2022 Non-patient / Non-visit Dr. Yordy Ball Work Phone: [facility] Start: 09-11-2022 End: 09-11-[address] Yordy Ball Work Phone: [facility] Work Phone: Start: 09-11-2022 End: 09-11-[address] Yordy Ball Work Phone: [facility]Pulmonary Services/Neurology Start: 09-09-2022 End: 09-09-[address] Yordy Ball Work Phone: [facility] Start: 07-24-2022 End: 07-24-[address] Yordy Ball Work Phone: [facility] Work Phone: Start: 07-24-2022 End: 07-24-[address] Yordy Ball Work Phone: [facility]-Laboratory, Specimen Start: 06-18-2022 End: 06-18-[address] Yordy Ball Work Phone: [facility] Work Phone: Start: 06-18-2022 End: 06-18-[address] Yordy Ball Work Phone: [facility] Start: 05-27-2022 End: 05-27-[address] Yordy Ball Work Phone: [facility] Start: 05-13-2022 End: 05-13-2022 ambulatory [facility] Work Phone: Start: 05-13-2022 End: 05-13-2022 Patient encounter procedure [facility]Laboratory, Specimen Start: 10-01-2021 End: 10-01-2021 Patient encounter procedure [facility] Start: 06-18-2021 Patient encounter procedure [facility] Procedures Date Procedure Procedure Detail Performing Clinician Start: 09-19-2023 MRI of abdomen with contrast Dr. Yordy Ball Work Phone: Start: 06-19-[address] Yordy Ball Work Phone: Start: 09-16-2022 MRI of abdomen with contrast Dr. Yordy Ball Work Phone: Start: 06-18-[address] Yordy Ball Work Phone: Start: 10-01-2021 MRI of abdomen with contrast Start: 06-18-2021 Screening mammography Start: 08-17-2018 Follow-up visit Start: 05-02-2017 End: 05-29-2017 Bacteria identified in Genital specimen by Aerobe culture Maria M Perez MD Work Phone: Start: 05-02-2017 End: 05-02-2017 No Charge Maria M Perez MD Work Phone: Start: 05-02-2017 End: 05-29-2017 Bacteria genital culture Maria M barron MD Work Phone: Start: 05-02-2017 End: 05-02-2017 No Charge Maria M Perez MD Work Phone: Start: 02-10-2017 Gynecologic examination Encounter for gynecological examination (general) (routine) with abnormal findings Maria M Perez MD Bacteria identificat ion test Bacteria identificat ion test Dr. Yordy Ball Work Phone: Bacteria identificat ion test Dr. Yordy Ball Work Phone: Throat culture Dr. Yordy frazier Work Phone: Plan of Treatment Date Care Activity Detail Author Start: 2017 End: 2017 Appointment Appointment [facility] Start: 06-05-2017 End: 06-05-2017 Appointment Appointment [facility] Work Phone: Start: 05-02-2017 End: 05-29-2017 Bacteria genital culture *CUV - Culture, VAG/CX [facility] Start: 05-02-2017 End: 05-29-2017 Bacteria genital culture *CUV - Culture, VAG/CX [facility] Start: 02-10-2017 End: 02-10-2017 Appointment Appointment [facility] MG Breast - bilatera l Screening [facility] Payers Date Payer Category Payer Unknown [id number] 2024 Self-pay [id number] 2023 Unknown [id number] 1980 Unknown [id number] 2.16.8 [id number] 1980 Unknown [id number] 2.16. [id number] Unknown [facility] [id number] 025 [id number] Unknown [id number] 2.16.8 [id number] Unknown [id number] 2.16.8 [id number] Unknown [id number] 2.16.8 [id number] Unknown [id number] 2.16.8 [id number] Unknown [id number] 2.16.8 [id number] Unknown [id number] 2.16.8 [id number] Social History Date Type Detail Facility Start: 05-14-2021 End: 08-11-2023 Tobacco smoking status NHIS Unknown if ever smoked [facility] Start: 07-19-2019 Rare [facility] Start: 07-19-2019 None [facility] Start: 07-19-2019 Spouse/ Signif icant Other;With Family [facility] Start: 1980 Sex Assigned At Female [facility] Start: 12-18-2023 Tobacco smoking status Never smoked tobacco (finding) [facility] Sex Assigned At Sex [facility] Start: 11-10-2024 End: 02-08-2025 Tobacco smoking status NHIS Ex-smoker (finding) [facility] Functional Status Date Assessment Result Facility 12-18-2023 Functional Status Up ad katherine [facility] Mental Status Date Assessment Result Facility 12-18-2023 Mental Status Orientation Oriented x 4 [facility] 12-18-2023 [facility] Clinical Notes 12-18-2023 to 11-10-2024 Note Date & Type Note Facility 11-10-2024 Evaluation note Diagnosis Onset Date Resolution BMI 27.0-27.9,adult acute October 282024 8:20am Other obesity acute November 10, 2 025 8:20am [facility] Work Phone: 1(357) 176-978102-14-2025 Evaluation note* Diagnosis Onset Date Resolution Status Admit Date BMI 27.0-27.9,adult acute Febru erinn2024 12:22pm Other obesity acute August 132024 12:22pm Encounter for routine gynecological examination noneactive Februa 2024 12:22pm [facility] Work Phone: 1(933) 375-799306-20-2024 Hospital Discharge instructions Patient Education 12/18/2023 17:19:48 Foot Sprain Foot Sprain A sprain is a stretching or tearing of the ligaments that hold a joint together. There are usually no broken bones. Sprains generally take from 3 to 6 weeks to heal. A sprain may be treated with a splint, walking cast, or special boot. Mild sprains may not need any additional support. Home care The following guidelines will help you care for your injury at home: Keep your leg elevated when sitting or lying down. This is very important during the first 48 hoursto reduce swelling. Stay off the injured foot as much as possible until you can walk on it without pain. If needed, you may use crutches during the first week for this purpose. Crutches can be rentedat many pharmacies or surgical/orthopedic supply stores. You may be given a cast shoe to wear to prevent movement in your foot. If not, you can use a sandalor any shoe that does not put pressure on the injured area until the swelling and pain go away. If using a sandal, be careful not to hit your foot against anything, since another injury could make the sprain worse. Apply an ice pack over the injured area for 15 to 20 minutes every 3 to 6 hours. You should do thisfor the first 24 to 48 hours. You can make an ice pack by filling a plastic bag that seals at the top with ice cubes and then wrapping it with a thin towel. Continue to use ice packs for relief of pain and swelling as needed. As the ice melts, try not to get the wrap, splint, or cast wet. After 48 hours, apply heat from a warm shower or bath for 20 minutes several times daily. Alternating ice andheat may also be helpful. You may use uvfa-hfh-ltotnth pain medicine to control pain, unless another medicine was prescribed.If you have chronic liver or kidney disease or ever had a stomach ulcer or gastrointestinal bleeding, talk with your healthcare provider before using these medicines. If you were given a splint or cast, keep it dry. Bathe with your splint or cast well out of the water, protected with 2 large plastic bags, sealed with tape or rubber-bands at the top end. If a fiberglass splint or cast gets wet, you can dry it with a dental chair assembler on cool setting. You may return to sports after healing, when you can run without pain. Follow-up care Follow up with your healthcare provider as directed. Sometimes fractures don t show up on the firstX-ray. Bruises and sprains can sometimes hurt as much as a fracture. These injuries can take time to heal completely. If your symptoms don t improve or they get worse, talk with your healthcare provider. You may need a repeat X-ray or other tests. When to seek medical advice Call your healthcare provider right away if any of these occur: The plaster cast or splint gets wet or soft The fiberglass cast or splint gets wet and does not dry for 24 hours Pain or swelling increases, or redness appears A bad odor comes from within the cast Fever of 100.4 F (38 C) or above lasting for 24 to 48 hours, or as advised Chills Toes on the injured foot become cold, blue, numb, or tingly [id number] [employer]. [address] [place] [address]. All rights reserved. This information is not intended as a substitute for professional medical care. Always follow yourhealthcare professional's instructions. 12/18/2023 17:19:45 Ankle Sprain (Adult) Ankle Sprain (Adult) An ankle sprain is a stretching or tearing of the ligaments that hold the ankle joint together. There are no broken bones. An ankle sprain is a common injury for both children and adults. It happens when the ankle turns, twists, or rolls in an awkward way. This can be caused by a sports injury. Or it can happen from doing something as simple as stepping on an uneven surface. Ligaments are made of tough connective tissue. Normally, ligaments stretch a certain amount and then go back to their normal place. A sprain happens when a ligament is forced to stretch more than thenormal amount. A severe sprain can actually tear the ligaments. If you have a severe sprain, you may have felt or heard something like a pop when you were injured. Ankle sprains are given a grade depending on whether they are mild, moderate, or severe: Grade 1 sprain. A mild sprain with minor stretching and damage to the ligament. Grade 2 sprain. A moderate sprain where the ligament is partly torn. Grade 3 sprain. The most severe kind of sprain. The ligament is completely torn. Most sprains take about 4 to 6 weeks to heal. A severe sprain can take several months to recover. Your healthcare provider may order X-rays to be sure you don t have a fracture, or broken bone. The injured area will feel sore. Swelling and pain may make it hard to walk. You may need crutches if walking is painful. Or your provider may have you use a cast boot or air splint. This will dependon the grade of ankle sprain that you have. Home care For a Grade 1 sprain, use RICE (rest, ice, compression, and elevation): Rest your ankle. Don t walk on it. Ice should be used right away to help control swelling. Place an ice pack over the injured area for20 minutes. Do this every 3 to 6 hours for the first 24 to 48 hours. Keep using ice packs to ease pain and swelling as needed. To make an ice pack, put ice cubes in a plastic bag that seals at the top. Wrap the bag in a clean, thin towel or cloth. Never put ice or an ice pack directly on the skin. The ice pack can be put right on the cast, bandage, or splint. As the ice melts, be careful that thecast, bandage, or splint doesn t get wet. If you have a boot, open it to apply an ice pack, unless told otherwise by your provider. Compression devices help to control swelling. They also keep the ankle from moving and support yourinjured ankle. These devices include dressings, bandages, and wraps. Elevate or raise your ankle above the level of your heart when sitting or lying down. This is very important for the first 48 hours. Follow the RICE guidelines for a Grade 2 sprain. This type of sprain will take longer to heal. Yourprovider may have you wear a splint, cast, or brace to keep your ankle from moving. If you have a Grade 3 sprain, you are at risk for long-term ankle instability. In rare cases, surgery may be needed. Your provider may have you wear a short leg cast or a walking boot for 2 to 3 weeks. After 48 hours, it may be helpful to apply heat for 20 minutes several times a day. You can do thiswith a heating pad or warm compress. Or you may want to go back and forth between using ice and heat. Never apply heat directly to the skin. Always wrap the heating pad or warm compress in a clean, thin towel or cloth. You may use qxjy-fak-vtfhgnh pain medicine (NSAIDS or nonsteroidal anti- inflammatory drugs) to control pain, unless another pain medicine was prescribed. Talk with your provider before using these medicines if you have chronic liver or kidney disease, or have ever had a stomach ulcer or gastrointestinal bleeding. Follow any rehabilitation exercises your provider gives you. These can help you be more flexible and improve your balance and coordination. This is helpful in preventing long-term ankle problems. Prevention To help prevent ankle sprains, it s important to have good strength, balance, and flexibility. Be sure to: Always warm up before you exercise or do something very active Be careful when walking or running on uneven or cracked surfaces Wear shoes that are in good condition and fit well Listen to your body s signals to slow down when you are in pain or tired Follow-up care Any X-rays you had today don t show any broken bones, breaks, or fractures. Sometimes fractures dont show up on the first X-ray. Bruises and sprains can sometimes hurt as much as a fracture. These injuries can take time to heal completely. If your symptoms don t get better or they get worse, talk with your healthcare provider. You may need a repeat X-ray. Follow up with your healthcare provider, or as advised. Check for any warning signs listed below. When to seek medical advice Call your healthcare provider right away if any of these occur: Fever of 100.4 F (38 C) or higher, or as directed by your healthcare provider Chills The injury doesn t seem to be healing The swelling comes back The cast or splint has a bad smell The plaster cast or splint gets wet or soft The fiberglass cast or splint gets wet and does not dry for 24 hours The pain or swelling increases, or redness appears Your toes become cold, blue, numb, or tingly The skin is discolored (looks blue, purple, or lamar), has blisters, or is irritated You re-injure your ankle [id number] [employer] [address] [place] [address], [place] [address]. All rights reserved. This information is not intended as a substitute for professional medical care. Always follow yourhealthcare professional's instructions. Follow Up Care 12/18/2023 16:10:28 With:JAYASHREE DEXTER Address: [address] [facility] [address] [facility] [place] [address]- Business (1) When:2-4 days Comments:Schedule appointment as soon as possibleReturn to ED if symptoms worsenIce elevate x 1 dayAnkle brace x 2 weeks or as per podiatryUse high arch shoeCan heel walk for 3 daysIbuprofen or Aleve and Tylenol for pain With:YORDY BALL Address: [address] [place] [address] [place] [address] Business (1) When:2-4 days [facility] 06-20-2024 Note Discharge Instructions Thank you for allowing [facility] to assist you with your healthcare needs. The following is importantdischarge information regarding your hospital visit. Diagnosis from Today's Visit Ankle fracture Ankle sprain Foot sprain What to Do Next Instructions from Your Care Team Discharge Home Equipment - Ordered -- Splint, Ankle Stirrup Left, 99 month(s), 12/18/23 17:35:00 EDT Discharge Return to Work, School, or Sports (Return to Work, School, or Sports) - Ordered -- 12/20/23, May return to: work, 12/18/23 17:20:00 EDT Post Acute Orders No qualifying data available. You Need to Schedule the Following Appointments Follow Up with JAYASHREE DEXTER When:Within 2-4 days Where:[facility] [facility] [place], [place] [phone]- Business (1) Additional Information: Schedule appointment as soon as possible Return to ED if symptoms worsen Ice elevate x 1 day Ankle brace x 2 weeks or as per podiatry Use high arch shoe Can heel walk for 3 days Ibuprofen or Aleve and Tylenol for pain Follow Up with YORDY BALL When:Within 2-4 days Where:[address] [place] [address] [facility] (1) Allergies NKA Medications Please ask your primary doctor or pharmacist before taking any other medication not listed, including over the counter drugs, herbal medications, vitamins and or supplements as they may interact withyour home medications. What How Much When Instructions Last Dose Unchanged phentermine (phentermine 37.5 mg oral tablet) 0.5 tab(s) by mouth Once a day before breakfast Please take this list to your next doctor s visit. Bring all medications you take, including over the counter medications, herbals and other supplements with you to your doctor s visit. Patients and families are reminded to discard old lists and to update any records with all medication providers or retail pharmacies. Education Materials Foot Sprain A sprain is a stretching or tearing of the ligaments that hold a joint together. There are usually no broken bones. Sprains generally take from 3 to 6 weeks to heal. A sprain may be treated with a splint, walking cast, or special boot. Mild sprains may not need any additional support. Home care The following guidelines will help you care for your injury at home: Keep your leg elevated when sitting or lying down. This is very important during the first 48 hoursto reduce swelling. Stay off the injured foot as much as possible until you can walk on it without pain. If needed, you may use crutches during the first week for this purpose. Crutches can be rentedat many pharmacies or surgical/orthopedic supply stores. You may be given a cast shoe to wear to prevent movement in your foot. If not, you can use a sandalor any shoe that does not put pressure on the injured area until the swelling and pain go away. If using a sandal, be careful not to hit your foot against anything, since another injury could make the sprain worse. Apply an ice pack over the injured area for 15 to 20 minutes every 3 to 6 hours. You should do thisfor the first 24 to 48 hours. You can make an ice pack by filling a plastic bag that seals at the top with ice cubes and then wrapping it with a thin towel. Continue to use ice packs for relief of pain and swelling as needed. As the ice melts, try not to get the wrap, splint, or cast wet. After 48 hours, apply heat from a warm shower or bath for 20 minutes several times daily. Alternating ice andheat may also be helpful. You may use fbbo-lxp-jjfpcjp pain medicine to control pain, unless another medicine was prescribed.If you have chronic liver or kidney disease or ever had a stomach ulcer or gastrointestinal bleeding, talk with your healthcare provider before using these medicines. If you were given a splint or cast, keep it dry. Bathe with your splint or cast well out of the water, protected with 2 large plastic bags, sealed with tape or rubber-bands at the top end. If a fiberglass splint or cast gets wet, you can dry it with a dental chair assembler on cool setting. You may return to sports after healing, when you can run without pain. Follow-up care Follow up with your healthcare provider as directed. Sometimes fractures don t show up on the firstX-ray. Bruises and sprains can sometimes hurt as much as a fracture. These injuries can take time to heal completely. If your symptoms don t improve or they get worse, talk with your healthcare provider. You may need a repeat X-ray or other tests. When to seek medical advice Call your healthcare provider right away if any of these occur: The plaster cast or splint gets wet or soft The fiberglass cast or splint gets wet and does not dry for 24 hours Pain or swelling increases, or redness appears A bad odor comes from within the cast Fever of 100.4 F (38 C) or above lasting for 24 to 48 hours, or as advised Chills Toes on the injured foot become cold, blue, numb, or tingly [id number] [employer] [address] [place] [address], [place] [address]. All rights reserved. This information is not intended as a substitute for professional medical care. Always follow yourhealthcare professional's instructions. Ankle Sprain (Adult) An ankle sprain is a stretching or tearing of the ligaments that hold the ankle joint together. There are no broken bones. An ankle sprain is a common injury for both children and adults. It happens when the ankle turns, twists, or rolls in an awkward way. This can be caused by a sports injury. Or it can happen from doing something as simple as stepping on an uneven surface. Ligaments are made of tough connective tissue. Normally, ligaments stretch a certain amount and then go back to their normal place. A sprain happens when a ligament is forced to stretch more than thenormal amount. A severe sprain can actually tear the ligaments. If you have a severe sprain, you may have felt or heard something like a pop when you were injured. Ankle sprains are given a grade depending on whether they are mild, moderate, or severe: Grade 1 sprain. A mild sprain with minor stretching and damage to the ligament. Grade 2 sprain. A moderate sprain where the ligament is partly torn. Grade 3 sprain. The most severe kind of sprain. The ligament is completely torn. Most sprains take about 4 to 6 weeks to heal. A severe sprain can take several months to recover. Your healthcare provider may order X-rays to be sure you don t have a fracture, or broken bone. The injured area will feel sore. Swelling and pain may make it hard to walk. You may need crutches if walking is painful. Or your provider may have you use a cast boot or air splint. This will dependon the grade of ankle sprain that you have. Home care For a Grade 1 sprain, use RICE (rest, ice, compression, and elevation): Rest your ankle. Don t walk on it. Ice should be used right away to help control swelling. Place an ice pack over the injured area for20 minutes. Do this every 3 to 6 hours for the first 24 to 48 hours. Keep using ice packs to ease pain and swelling as needed. To make an ice pack, put ice cubes in a plastic bag that seals at the top. Wrap the bag in a clean, thin towel or cloth. Never put ice or an ice pack directly on the skin. The ice pack can be put right on the cast, bandage, or splint. As the ice melts, be careful that thecast, bandage, or splint doesn t get wet. If you have a boot, open it to apply an ice pack, unless told otherwise by your provider. Compression devices help to control swelling. They also keep the ankle from moving and support yourinjured ankle. These devices include dressings, bandages, and wraps. Elevate or raise your ankle above the level of your heart when sitting or lying down. This is very important for the first 48 hours. Follow the RICE guidelines for a Grade 2 sprain. This type of sprain will take longer to heal. Yourprovider may have you wear a splint, cast, or brace to keep your ankle from moving. If you have a Grade 3 sprain, you are at risk for long-term ankle instability. In rare cases, surgery may be needed. Your provider may have you wear a short leg cast or a walking boot for 2 to 3 weeks. After 48 hours, it may be helpful to apply heat for 20 minutes several times a day. You can do thiswith a heating pad or warm compress. Or you may want to go back and forth between using ice and heat. Never apply heat directly to the skin. Always wrap the heating pad or warm compress in a clean, thin towel or cloth. You may use patb-cks-xnkgkib pain medicine (NSAIDS or nonsteroidal anti- inflammatory drugs) to control pain, unless another pain medicine was prescribed. Talk with your provider before using these medicines if you have chronic liver or kidney disease, or have ever had a stomach ulcer or gastrointestinal bleeding. Follow any rehabilitation exercises your provider gives you. These can help you be more flexible and improve your balance and coordination. This is helpful in preventing long-term ankle problems. Prevention To help prevent ankle sprains, it s important to have good strength, balance, and flexibility. Be sure to: Always warm up before you exercise or do something very active Be careful when walking or running on uneven or cracked surfaces Wear shoes that are in good condition and fit well Listen to your body s signals to slow down when you are in pain or tired Follow-up care Any X-rays you had today don t show any broken bones, breaks, or fractures. Sometimes fractures dont show up on the first X-ray. Bruises and sprains can sometimes hurt as much as a fracture. These injuries can take time to heal completely. If your symptoms don t get better or they get worse, talk with your healthcare provider. You may need a repeat X-ray. Follow up with your healthcare provider, or as advised. Check for any warning signs listed below. When to seek medical advice Call your healthcare provider right away if any of these occur: Fever of 100.4 F (38 C) or higher, or as directed by your healthcare provider Chills The injury doesn t seem to be healing The swelling comes back The cast or splint has a bad smell The plaster cast or splint gets wet or soft The fiberglass cast or splint gets wet and does not dry for 24 hours The pain or swelling increases, or redness appears Your toes become cold, blue, numb, or tingly The skin is discolored (looks blue, purple, or lamar), has blisters, or is irritated You re-injure your ankle [id number] [employer] [address] [place] [address]. All rights reserved. This information is not intended as a substitute for professional medical care. Always follow yourhealthcare professional's instructions. Additional Information VACCINATE! IT SAVES LIVES! Members of the community who have not yet received the COVID-19 vaccine and would like to receive it can visit one of [facility] vaccine clinics. There are many vaccine clinic locations within the [facility]. For locations and available times, please visit [email or web address] It is important to note that some COVID mobile vaccine clinics are held outdoors and may be canceled in rainy or stormy conditions. To learn more about pediatric vaccinations (ages 5-11), we invite you to visit the [facility] webpage. [email or web address] learn more about the COVID-19 vaccine, we invite you to visit the CDC website for a list of frequently asked questions. https://www.cdc.gov/coronavirus/2019-ncov/vaccines/faq.html [facility] Patient Portal Access Instructions: Stay connected with your healthcare team and access your personal medical information anytime with the [facility] Patient Portal. If you would like a full copy of your medical records please contact the [facility] Medical Records Department Friday through Friday between 8a.m. and 4:30p.m. Please follow the directions below to access the portal: 1.Access the email account you provided upon registration to the [facility].2.Look for an invitation email from [facility].3.Open the email and access the invitation link: Accept Invitation to [facility]4.Fill in the required romero to create your account. Sign into [email or web address] with your username and password that you created in the above steps to stay up to date. You can then view a summary of results, a summary of your visits, and the ability to download your summaries to your computer or send the information securely to a physician. Remember that your healthcare information is confidential, so carefully consider who you will allow to register on the [facility] Patient Portal for access to your information. You can also access the [facility] Patient Portal on the [employer]. Simply click on Health Records under [employer] and then click on the [employer] logo. HOW TO SAFELY DISPOSE OF PRESCRIPTION MEDICATIONS Please use one of the following methods to safely dispose of your unused medications. 1.Use a drug disposal kit: the drug disposal pouch allows you to safely discard your old and unuseddrugs. Ask your nurse to give you one when you are discharged.2.Visit a local take-back location: Many local pharmacies and police departments have programs that collect old and unwanted prescriptiondrugs. Call your local pharmacy or go to http://ProTenders.Interneer/3N4Vy3h to find one close to you.3.Make use of household items: Use cat litter or old coffee grounds to dispose medications if other options arenot available. Mix your drugs with these household products, seal them in an airtight container andthrow it into the garbage. Call [facility]: [phone] to be sure your drugs can be disposed of in this way. Some medicines may require a different approach.4.Never flush your medications down the toilet. IF YOU HAVE BEEN PRESCRIBED AN OPIOIDS FOR PAIN If you have been prescribed an opioid (such as hydrocodone, oxycodone or morphine), it is critical to understand the possible side effects and risks of opioid pain medications. Even when taken as directed, opioids can have several side effects including: Tolerance, meaning you might need to take more of a medication for the same pain relief. Nausea, vomiting and/or constipation. Sleepiness, dizziness, dry mouth, confusion, depression or itching. Physical dependence, meaning you have withdrawal symptoms when a medication is stopped ? this can develop within a few days. KNOW YOUR RESPONSIBILITIES It is important to know exactly how much and how often to take the opioid pain medications you are prescribed. Never take opioids in higher amounts or more often than prescribed. Do not combine opioids with alcohol or other drugs that cause drowsiness, such as benzodiazepines, also known as benzos,including diazepam and alprazolam, muscle relaxants or sleep aids. Never sell or share prescriptionopioids. This is illegal. Store opioids in a secure place and out of reach of others (including children, family, friends and visitors). The last page(s) of this document has been signed and retained as a CHART COPY Signatures Patient Education Materials Foot Sprain Ankle Sprain (Adult) Medication Leaflets My discharge plan and instructions have been reviewed and explained to me and I,KYRA JO understand my current condition and have read and understand these discharge instructions. I have received a written copy of the plan/instructions. If I have questions, I am aware that I should contact my doctor. Patient/Unix Analyst Signature: Date/Time: Relationship to Patient: Witness Name/Signature: Date/Time: [facility]06-20-2024 Note ORIGINAL EXAMINATION: 6XRAY VIEWS OF THE ANKLE AND FOOT LEFT 12/18/2023 4:51 pm COMPARISON: None. HISTORY: ORDERING SYSTEM PROVIDED HISTORY: Reason for Exam: pain FINDINGS: Well corticated ossicle inferior to the lateral malleolus, likely from remote trauma. No acute fracture or dislocation. The ankle mortise and talar dome are intact. No significant degenerative changes. No significant tibiotalar joint effusion. IMPRESSION: Well corticated ossicle inferior to the lateral malleolus is most likely from remote trauma. Although correlate with point tenderness. No definitive acute osseous abnormality. I have personally reviewed the images of this examination and agree with the resident's findings and interpretations. 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 ([facility]LRCC) chronic Encounter for routine gynecological examination noneactive [facility] Work Phone: Evaluation note* Diagnosis Onset Date Resolution Status 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 ([facility]LRCC) chronic Encounter for routine gynecological examination noneactive BMI 31.0-31.9,adult acute Other obesity acute Abnormal weight noneactive [facility] Work Phone: Evaluation note* Diagnosis Onset Date Resolution Status BMI 27.0-27.9,adult acute Other obesity acute [facility] Work Phone: Evjoration note* Diagnosis Onset Date Resolution Status Encounter for routine gynecological examination noneactive [facility] Work Phone: Reason for referral (narrative)No reason for referral [facility] Summary Purpose Family History No Family History Records Found Relationship Condition Age at Onset Recorded Date/T deja mother Malignant neoplasm of breast Unknown Advance Directives No Advanced Directives Records Found Advance Directive Response Recorded Date/ Time Living Will No January 25, 2021 12:06pm Power of [employer]berry [employer] Supervisor No January 25 12:06pm Advance Directive Response Recorded Date/ Time Living Will No January 25, 2021 11:06am Power of [employer] Supervisor No January 25 11:06am Advance Directive Response Recorded Date/ Time Living Will No January 26, 2021 12:19pm Power of [employer] Supervisor No January 26 12:19pm Advance Directive Response Recorded Date/ Time Living Will No January 26, 2021 1:19pm Power of [employer] Supervisor No January 26 1:19pm Advance Directive Response Recorded Date/ Time Living Will No January 26, 2021 1:19pm Do you have a Healthcare Power of [employer] Supervisor? No January 26, 2021 1:19pm Procedure Findings Note HNO ID: [id number] Author: Rajiv Olivares Service: General Surgery Author Type: Physician Type: Brief Op Note Filed: 08/19/2018 8:26 AM Note Text: BRIEF OPERATIVE / PROCEDURE NOTE LOG ID: [id number] SURGERY/PROCEDURE DATE: 08/16/2018 INCISION/PROCEDURE START TIME: 4:20 PM INCISION CLOSE/PROCEDURE END TIME: 5:28 PM SURGEON(S)/PROCEDURALIST(S) AND DIRECTOR FOOD AND BEVERAGE(S): Surgeon(s) and Role: * Wiley Olivares - Primary * Shanna (Rory) Marty - Resident - Assisting No Additional Staff SURGERY/PROCEDURE(S): 1. Diagnostic laparoscopy, 2. Laparoscopic appendectomy, 3. Removal of old surgical clip ANESTHESIA: General FINDINGS: No volvulus or internal hernia identified. Surgical clip adhesed to the abdominal wall in the RLQ. Injected appendix. Small bowel implant sent for pathology ESTIMATED BLOOD LOSS: <10 mls SPECIMENS: 1. Small bowel implant 2. Appendix with surgical clip COMPLICATIONS: None PRE-OP/PRE-PROCEDURE DIAGNOSIS: Right lower quadrant pain POST-OP/POST-PROCEDURE DIAGNOSIS: Right lower q (more content not included)... 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 Weight management OBESITY, WEIGHT MANAGEMENT Reason for Visit Hereditary leiomyoma tosis and renal cell cancer ([facility]) Encounter for routine gynecological examination BMI 31.0-31.9,adult Other obesity Abnormal weight Chief Complaint 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 Weight Management OBESITY, WEIGHT MANAGEMENT PREOP REEDS SYNDROME Reason for Visit Hereditary leiomyoma tosis and renal cell cancer ([facility]) Encounter for routine gynecological examination BMI 31.0-31.9,adult Other obesity Abnormal weight Chief Complaint 3 M FU SCREENING Reason for Visit BMI 27.0-27.9,adult Other obesity Chief Complaint SCREENING 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) 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, S/P HYSTERECTOMY Reason for Visit Encounter for routin e gynecological examination Chief Complaint Admit Date 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) August 13, 2024 12:22pm 3 M FU November 10, 2024 8:20a m Reason for Visit Admit Date BMI 27.0-27.9,adult August 13, 2024 12:22pm Other obesity August 13, 2024 12:22pm Encounter for routine gynecological exam ination August 13, 2024 12:22pm Chief Complaint Admit Date 3 M FU November 10, 2024 8:20a m 3 F/U February 08, 2025 8: 17am Reason for Visit Admit Date BMI 27.0-27.9,adult November 10, 2024 8:20a m Other obesity November 10, 2024 8:20a m Additional Source Comments INFORMATION SOURCE (unrecogn ized section and content) DATE CREATED AUTHOR 10/18/2018 [employer] DATE CREATED AUTHOR AUTHOR'S ORGANIZ ATION 04/23/2019 [facility] DATE CREATED AUTHOR AUTHOR'S ORGANIZ ATION 06/05/2019 [facility] DATE CREATED AUTHOR AUTHOR'S ORGANIZ ATION 07/19/2019 [facility] DATE CREATED AUTHOR AUTHOR'S ORGANIZ ATION 12/28/2023 [facility] ([place]) DATE CREATED AUTHOR AUTHOR'S ORGANIZ ATION 08/25/2024 [facility] DATE CREATED AUTHOR AUTHOR'S ORGANIZ ATION 09/23/2024 [facility] DATE CREATED AUTHOR AUTHOR[facility]S ORGANIZ ATION [facility] Goals (unrecognized section and content) Goals may be documented in a n alternate sectionGoals may be documented in an alternate sectionGoals may be documented in an alternate sectionGoals may be documented in an alternate sectionGoals may be documented in an alternate sectionGoals may be documented in an alternate sectionGoals may be documented in an alternate sectionGoals may be documented in an alternate section No data available for this sectionGoals may be documented in an alternate sectionGoals may be documented in an alternate section Care Teams (unrecognized sec tion and content) Team Status: Active Member Role Status Dates Dr. Jared Marrero MD Family Provider Active Dr. Yordy Ball MD Primary Care Provider Active Team Status: Inactive Member Role Status Dates Dr. Yordy Ball MD Primary Care Provider, Referri ng Provider Active Dr. Maria M Perez MD Attending Provider Active Team Status: Inactive Member Role Status Dates Dr. Yordy Ball MD Primary Care Provider Active Dr. Mo Chapin MD Attending Provider Activ e Team Status: Inactive Member Role Status Dates Dr. Yordy Ball MD Primary Care Provider Active Dr. Maria M Perez MD Attending Provider Active Team Status: Inactive Member Role Status Dates Dr. Yordy Ball MD Primary Care Provider Active Dr. Mo Chapin MD Attending Provider, Refe rring Provider Active Team Status: Active Member Role Status Dates Dr. Yordy Ball MD Primary Care Provider Active Dr. Ga Ayala MD Attending Provider Active Dr. Maria M Perez MD Referring Provider Active Team Status: Inactive Member Role Status Dates Dr. Yordy Ball MD Primary Care Provider Active ROB SANTOS Attending Provider, Referring P omaira Active Team Status: Inactive Member Role Status Dates Dr. Yordy Ball MD Primary Care Provider Active Dr. Maria M Perez MD Attending Provider, Referr ing Provider Active Team Status: Inactive Member Role Status Dates Dr. Yordy Ball MD Primary Care Provider Active Start: August 13, 2024 End: August 13, 2024 Dr. Yordy Ball MD Referring Provider Active Start: August 13, 2024 End: August 13, 2024 Dr. Maria M Perez MD Attending Provider Active Start: August 13, 2024 End: August 13, 2024 Team Status: Inactive Member Role Status Dates Dr. Yordy Ball MD Primary Care Provider Active Start: November 10, 2024 End: November 10, 2024 Dr. Yordy Ball MD Referring Provider Active Start: November 10, 2024 End: November 10, 2024 ROB Ruth Attending Provider Active Start: November 10, 2024 End: November 10, 2024 Team Status: Active Member Role/Relationship Status Dates Dr. Yordy Ball MD Primary Care Provider Active Team Status: Inactive Member Role/Relationship Status Dates Dr. Yordy Ball MD Primary Care Provider Active Start: November 10, 2024 End: November 10, 2024 Dr. Yordy Ball MD Referring Provider Active Start: November 10, 2024 End: November 10, 2024 ROB Ruth Attending Provider Active Start: November 10, 2024 End: November 10, 2024 Team Status: Inactive Member Role/Relationship Status Dates Dr. Yordy Ball MD Primary Care Provider Active Start: February 08, 2025 End: February 08, 2025 Dr. Yordy Ball MD Referring Provider Active Start: February 08, 2025 End: February 08, 2025 Dr. Maria M Perez MD Attending Provider Active Start: February 08, 2025 End: February 08, 2025 FOR RECORDS PERTAINING TO PATIENTS WHO ARE OR HAVE BEEN ENROLLED IN A CHEMICAL DEPENDENCY/SUBSTANCEABUSE PROGRAM, SOME INFORMATION MAY BE OMITTED. This clinical summary was aggregated from multiple sources. Caution should be exercised in using it in the provision of clinical care. This summary normalizes information from multiple sources, and as a consequence, information in this document may materially change the coding, format and clinical context of patient data. In addition, data may be omitted in some cases. CLINICAL DECISIONS SHOULD BE BASED ON THE PRIMARY CLINICAL RECORDS. [employer] provides no warranty or guarantee of the accuracy or completeness of information in this document.
== END | disposition home or self-care (01) ==
LOC: OPBI 07:14
PROVIDERS: PCP Family Medicine; Referring Provider Obstetrics & Gynecology; Visit Provider Obstetrics & Gynecology
DX: Z12.31 Encounter for screening mammogram for malignant neoplasm of breast (principal)
CPT/HCPCS: 77063; 77067